=== PATIENT | male | born 1950 | race Caucasian/White ===

== ENCOUNTER → 2016-10-09 | Outpatient (CLI) | payer MEDICARE ==
[2016-10-09 14:22] LABS: ALBUMIN 3.5 GM/DL (3.2-5.2); ALBUMIN/GLOBULIN RATIO 1.03 (1.00-1.93); ALKALINE PHOSPHATASE 70 U/L (45-117); ALT/SGPT 18 U/L (12-78); ANION GAP 8 MEQ/L (8-16); AST/SGOT 11 U/L (15-37); BILIRUBIN,TOTAL 0.5 MG/DL (0.2-1.0); BLOOD UREA NITROGEN 18 MG/DL (7-18); CALCIUM LEVEL 8.5 MG/DL (8.8-10.2); CARBON DIOXIDE LEVEL 29 MEQ/L (21-32); CHLORIDE LEVEL 107 MEQ/L (98-107); CHOLESTEROL LEVEL 146 MG/DL (<200); GLOMERULAR FILTRATION RATE > 60.0 (>49); GLUCOSE, FASTING 165 MG/DL (80-110); POTASSIUM SERUM 4.3 MEQ/L (3.5-5.1); SODIUM LEVEL 144 MEQ/L (136-145); TOTAL PROTEIN 6.9 GM/DL (6.4-8.2); TRIGLYCERIDES LEVEL 109 MG/DL (<150)
== END ==
LOC: M LAB 13:14
PROVIDERS: ATTEND Physician Assistant Medical
DX: E11.21 Type 2 diabetes mellitus with diabetic nephropathy (principal); E03.9 Hypothyroidism, unspecified; D63.8 Anemia in other chronic diseases classified elsewhere

== ENCOUNTER → 2017-04-23 | Outpatient (CLI) | payer MEDICARE ==
[2017-04-23 12:30] LABS: CREATININE FOR GFR 1.43 MG/DL (0.70-1.30); GLOMERULAR FILTRATION RATE 52.8 (>49)
== END ==
LOC: M WUC 09:38
PROVIDERS: ATTEND Surgery Vascular Surgery
DX: R94.4 Abnormal results of kidney function studies (principal)

== ENCOUNTER 2017-08-07 12:50 | Inpatient (IN) | payer MEDICARE ==
[~2017-08-07] VITALS: Ht 157.5 cm; Wt 72.4 kg
[~2017-08-07 12:50] MED LIST: **UNRESOLVED NON-FORMULARY MED ORDER XX SCH
[2017-08-07] MEDS ORDERED: ACETAMINOPHEN TAB 650MG DOSE (2X325MG) PO PRN (13:15)
[2017-08-07 13:30] VITALS: BP 105/56
[2017-08-07] MEDS ORDERED: DEXTROSE 50% 50 ML SYRINGE IV PRN (14:00)
[2017-08-07] MEDS ORDERED: GLUCOSE 4 GM CHEW TABLET PO PRN (14:00)
[2017-08-07] MEDS ORDERED: GLUCAGON FOR INJ 1 MG VIAL (J1610) SC PRN (14:00)
[2017-08-07] MEDS ORDERED: NITROGLYCERIN 0.4 MG SUBL TABLET SL PRN (14:00)
[2017-08-07] MEDS ORDERED: MECLIZINE 25 MG TABLET PO PRN (14:00)
[2017-08-07] MEDS ORDERED: STAR120T3 PO (15:14)
[2017-08-07] MEDS ORDERED: METF10004 PO (15:14)
[2017-08-07] MEDS ORDERED: LISI-538 PO (15:14)
[2017-08-07] MEDS ORDERED: MECL-86 PO (15:14)
[2017-08-07] MEDS ORDERED: LOVE0.8I SC (15:14)
[2017-08-07] MEDS ORDERED: SYNT25TA PO (15:14)
[2017-08-07] MEDS ORDERED: FURO40TA2 PO (15:14)
[2017-08-07] MEDS ORDERED: SILV40CR EXT (15:14)
[2017-08-07] MEDS ORDERED: SPIR25TA2 PO (15:14)
[2017-08-07] MEDS ORDERED: GABA-282 PO (15:14)
[2017-08-07] MEDS ORDERED: CARV25TA PO (15:14)
[2017-08-07] MEDS ORDERED: INSULANT SC (15:14)
[2017-08-07] MEDS ORDERED: GLIP5TAB8 PO (15:14)
[2017-08-07] MEDS ORDERED: AMIT10TA PO (15:14)
[2017-08-07] MEDS ORDERED: ATOR40TA75 PO (15:14)
[2017-08-07] MEDS ORDERED: ISOS30TA4 PO (15:14)
[2017-08-07] MEDS ORDERED: ASPI325T PO (15:14)
[2017-08-07] MEDS ORDERED: ACET1TAB17 PO (15:14)
[2017-08-07] MEDS ORDERED: NITR4TASL SL (15:14)
[2017-08-07] MEDS ORDERED: NON-FORMULARY COMPOUNDED MEDICATION PO SCH (17:30)
[2017-08-07] MEDS: metFORMIN (GLUCOPHAGE) 1000 MG TABLET PO SCH (18:06)
[2017-08-07] MEDS: HumaLOG INSULIN (NovoLOG) PER UNIT SC SCH ×2 (18:06→21:00)
[2017-08-07 18:12] LABS: MEAN CORPUSCULAR HEMOGLOBIN 29.1 pg (27.0-33.0); MEAN CORPUSCULAR HGB CONC 32.4 g/dl (32.0-36.5); MEAN CORPUSCULAR VOLUME 89.8 fl (80.0-96.0); PLATELET COUNT, AUTOMATED 432 10^3/uL (150-450); RED CELL DISTRIBUTION WIDTH 15.9 % (11.5-14.5); WHITE BLOOD COUNT 10.7 10^3/uL (4.0-10.0)
[2017-08-07 18:31] LABS: INR 1.14
--- NOTE | 2017-08-07 18:49 | CR ---
DATE OF CONSULTATION: 08/07/2017 REQUESTING PHYSICIAN: Dr. Coates REASON FOR CONSULTATION: Medical evaluation. Marco Martin was transferred to [facility] after a recent hospitalization. He had developed acute arterial insufficiency of his left leg and was transferred from [facility] on 07/19/2017 to [facility]. He saw Dr. De Paz, who did a thrombectomy of the tibial, peroneal and popliteal arteries, fem-pop bypass graft, and did a tibioperoneal patch angioplasty. The following day he developed compartment syndrome in the left lower extremity. He underwent a fasciotomy on the left leg. He had a prolonged hospital course, which included developing seizure. 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 Treated with Zosyn and vancomycin. He had encephalopathy. Possible pneumonia. Echocardiogram was done, ejection fraction 60%. No vegetations seen (transthoracic echo). EEG was normal. Oral intake was poor. Nasogastric tube was passed leading to laryngospasm, respiratory arrest requiring intubation, mechanical ventilation and IV pressors. He ultimately was extubated on 07/25/2017. He had a swallowing evaluation with pureed solid diet. He was on insulin drip for a while. Speech evaluation on 08/01/2017 with a modified barium swallow showed impaired laryngeal phase, recommend honey-thickened diet. He had to be transferred back to the intensive care unit (ICU) after he became quite hyperglycemic and requiring an insulin drip. He had acute urinary retention. Webber catheter was placed. He was transfused 1 unit of packed red blood cells for what appears to be anemia secondary to chronic disease. Primary care provider is Hannah Fermin at the [facility]. PAST MEDICAL HISTORY: 1. Diabetes, which was under less than optimal control with hemoglobin A1/c of 8.6. 2. Hyperlipidemia. 3. Tobacco abuse. 4. Peripheral arterial disease. 5. Diabetic lower extremity neuropathy. 6. Hyperlipidemia. 7. Coronary artery disease. 8. History of myocardial infarction. 9. History of anemia of chronic disease. 10. Chronic kidney disease stage III with a GFR in the 50s. He has a hemoglobin A1/c as high as 13.27 June 2016, was down to 8.6 in September 2016. FAMILY HISTORY: Father at 72 of coronary artery disease. Mother is alive with hypertension and dementia. Siblings with hypertension, lymphoma, hyperlipidemia, hypertension, stroke, coronary artery disease. ALLERGIES: None known. SOCIAL HISTORY: He is single/. Former smoker, quit last year. No alcohol use. Retired. MEDICATIONS: - Tylenol - aspirin 325 mg daily - Lovenox 90 mg every 12 hours (weight based dose should be 70 mg every 12 hours). - Silvadene cream daily to his wounds - Gabapentin 300 mg at bedtime - Lisinopril 40 mg daily - amitriptyline 10 mg daily - atorvastatin 40 mg daily - carvedilol 25 mg twice a day - furosemide 40 mg daily - glipizide 5 mg daily - Lantus insulin 55 units nightly - Isosorbide mononitrate 30 mg daily - levothyroxine 25 mcg daily - meclizine 25 mg three times a day as needed for dizziness - metformin 1000 mg twice a day - NitroStat as needed - spironolactone 25 mg daily - Starlix 120 mg three times a day (He previously had been on clopidogrel, Pletal and probiotics, all of which have been discontinued). IMMUNIZATIONS: Received both Pneumovax, Prevnar 13 was in 07/2016. His Pneumo 23 was 01/2017. TDAP was 09/2016. Zostavax in 10/2016. IMPRESSION: 1. Type 2 diabetes. Concerns about developing hypoglycemia. Until we know what his oral intake will be, I have recommended reducing the dose of basal insulin to 4 units at bedtime. Continue metformin 1000 mg twice a day (lab work pending to reassess renal function). Stop Starlix and glipizide. Diet should be consistent carbohydrate. Fingersticks with coverage has been ordered in order to titrate the dose of the basal insulin. 2. Hyperlipidemia. Continue atorvastatin 40 mg daily. 3. Hypertension. Continue carvedilol 25 mg twice a day, Lisinopril 40 mg daily, furosemide 40 mg daily, spironolactone 25 mg daily. Check renal function. Check potassium off pending lab work. 4. Peripheral neuropathy. Continue gabapentin 300 mg at bedtime, amitriptyline 20 mg at night. 5. Peripheral arterial disease. Status post recent thrombectomy. He is on a supratherapeutic dose of Lovenox. Dose has been adjusted to 70 mg every 12 hours. Anticoagulant choice discussed with Dr. Coates. I have advised warfarin and we will continue the Lovenox until his INR is greater than 2.0, at which point Lovenox will be discontinued. Daily INR has been ordered. 6. Coronary artery disease. I would like to clarify the status of his coronary artery disease. Unfortunately, the version of [employer] installed on the computers in the rehabilitation unit is out of date and requires administrative credentials to update, therefore I cannot get to his office record. We will continue his isosorbide mononitrate, as well as his statin. 7. History of parietal stroke. Continue his aspirin 325 mg daily and he will be anticoagulated. Continue statin therapy.
[2017-08-07 18:51] LABS: ALBUMIN 2.7 GM/DL (3.2-5.2); ALBUMIN/GLOBULIN RATIO 0.71 (1.00-1.93); ALKALINE PHOSPHATASE 75 U/L (45-117); ALT/SGPT 43 U/L (12-78); ANION GAP 8 MEQ/L (8-16); AST/SGOT 25 U/L (7-37); BILIRUBIN,TOTAL 0.8 MG/DL (0.2-1.0); BLOOD UREA NITROGEN 24 MG/DL (7-18); CALCIUM LEVEL 8.5 MG/DL (8.8-10.2); CARBON DIOXIDE LEVEL 29 MEQ/L (21-32); CHLORIDE LEVEL 104 MEQ/L (98-107); FREE T4 1.12 NG/DL (0.76-1.46); GLOMERULAR FILTRATION RATE > 60.0 (>49); GLUCOSE, FASTING 141 MG/DL (80-110); POTASSIUM SERUM 4.2 MEQ/L (3.5-5.1); SODIUM LEVEL 141 MEQ/L (136-145); TOTAL PROTEIN 6.5 GM/DL (6.4-8.2)
[2017-08-07 20:30] VITALS: BP 133/66
--- NOTE | 2017-08-07 20:30 | PMRHPE ---
DATE OF ADMISSION: 08/07/2017 REASON FOR ADMISSION: Multiple source debilitation including left leg thrombosis of bypass graft with compartment syndrome status post fasciotomy and renewed bypass grafting, sepsis, congestive heart failure, pneumonia, and recent CVA with dysphagia. HISTORY OF PRESENT ILLNESS: The patient is a 67-year-old white male who developed pain and aching in his left lower extremity and was admitted to [facility] in [place] to the surgical service on 07/19/2017, and found to have developed a clot in the left leg and the bed was placed for ischemia. The patient required fasciotomies and renewed bypass of the leg which was done, but then developed congestive heart failure, edema, sepsis, and fever with confusion, and was felt to be encephalopathic. It is reported that imaging of the brain showed a nonacute but relatively recent CVA which led to his dysphagia and some disorientation and communication disorders. The patient also went into acute respiratory failure along with the congestive heart failure and fluid overload. The patient had difficulty with control of his diabetes mellitus. However, these have progressed and a patient who at one time was on Venturi mask at 15 liters/minute oxygen flow and has been being tapered down, was reported on 3 liters yesterday and reports on admission today that he was on 1 liter this morning and then discontinued from oxygen. Patient has been participating in physical and occupational therapy. His main deficit has been decreased ambulation due to severe heel pain when he tries to stand and walk on his left lower extremity. His prior severe fatigue due to pulmonary has been clearing and he has done well with diuresis. The patient has been participating in physical and occupational therapy and evaluated by speech for his dysphagia and having his diet advanced. Patient is felt to be able to participate in and benefit in acute intensive rehabilitation. PAST MEDICAL HISTORY: Includes: Atherosclerotic cardiovascular disease with left lower extremity bypass graft, congestive heart failure, hypertension, hyperlipidemia, coronary artery disease status post coronary angioplasty, chronic obstructive pulmonary disease (COPD) with chronic bronchitis, peripheral vascular disease, type 2 diabetes mellitus, and unspecified CVA with dysphagia. More recent problems include the respiratory failure, acute kidney disease, acute encephalopathy, hyperglycemia, hypoxic encephalopathy, and compartment syndrome of the left lower extremity. PAST SURGICAL HISTORY: Includes: Coronary angioplasty, left lower extremity bypass arterial grafts, fasciotomies left lower extremity, inguinal hernia repair, appendectomy, stent placement in left lower extremity. ALLERGIES: Patient with no known drug allergies. MEDICATIONS ON ADMISSION: - Tylenol 650 mg every 6 hours - amitriptyline 20 mg nightly - aspirin 325 mg daily - atorvastatin 40 mg nightly - Coreg 25 mg by mouth twice a day - Lovenox 90 mg subcutaneous twice a day to prevent thrombosis and clotting - Lasix 40 mg daily - gabapentin 300 mg nightly - glipizide 5 mg daily - long-acting insulin, in this case detemir 55 units subcutaneous nightly - Imdur 30 mg daily - Synthroid 25 mcg daily - lisinopril 40 mg daily - meclizine 25 mg by mouth twice a day as needed for dizziness - metformin 1 gram by mouth twice a day - Nitrostat 1/150 0.4 mg sublingual every 5 minutes as needed for chest pain - spironolactone 25 mg by mouth every morning Patient is on: - hypoglycemic agent of D5W 25 mL for hypoglycemia - glucagon 1 mg subcutaneous as needed hypoglycemia - glucose 16 grams by mouth as needed hypoglycemia - and the patient is also on Starlix 180 mg by mouth before meals three times a day, patient will use his own from home FAMILY HISTORY: Includes diabetes in both his parents, heart disease in his father, and alcohol use in a brother. SOCIAL HISTORY: Patient is a half a pack a day smoker prior to his recent admission and has a 22-1/2 pack year smoking history. No use of smokeless tobacco. No alcohol use. No illicit drug use. Patient lives in [place], [place] with his daughter who is very supportive. REVIEW OF SYSTEMS: Includes the symptoms noted above, but otherwise negative ten-point review. PHYSICAL EXAMINATION: The patient is a short, well nourished, well developed, late middle aged, white male, who looks slightly older than his stated age of 67, who is alert, and well oriented. VITAL SIGNS: Temperature is 98.4, blood pressure 105/56, pulse 74, respirations 18, pulse oximetry 96% on room air. Patient is 5 feet 2 inches, weighs in today at 73.1 kg. HEENT: Normocephalic, atraumatic with no facial asymmetry. Tongue is midline. No oropharynx lesions noted. Extraocular motions are intact. Pupils are equal, round, reactive to light and accommodation. Hearing is intact. NECK: Supple. Thyroid is midline, normal size and texture without any nodules or goiter found. No carotid bruits were auscultated in the neck. LUNGS: Clear in all fraser to auscultation. CORONARY: Shows regular rate and rhythm with normal S1 and S2, without S3 or S4 murmurs or rubs. ABDOMEN: Benign with no palpable tenderness, masses, and normal bowel sounds in all quadrants. EXTREMITIES: With good functional range of motion in bilateral upper and lower extremities, however on the left lower extremity there is a healing medial bypass graft site that has significant eschar over it with no drainage, but a little localized erythema at the margin, no odor is seen, and this extends approximately 20 cm in length up to 1 cm in width and 1 cm in depth. There is along the medial aspect, posterior to the medial malleolus is the stapled graft, which we have removed the guy of, that is approximately 10 cm in length and is healed across, and then directly posterior and slightly superior to it is a 2-1/2 cm circular, what appears to be stage IV decubitus, with notable eschar over the top of the proximal Achilles tendon with mild tenderness in the surrounding areas, no drainage, erythema, or odor is found there. In the lateral aspect of the left leg, there are three fasciotomy incisions that are approximately 3 cm in length each and 1 cm wide in an elliptical shape with no drainage and early granular base. There is no palpable tenderness to the foot or ankle, though some tenderness when the foot is pressed towards dorsiflexion. This is along the Achilles tendon into the calcaneal insertion of the Achilles. No other lesions were found on skin of the upper or right lower extremity. NEUROLOGIC: Patient is alert and oriented times four. Speech is clear, coherent, and appropriate. Affect is pleasant and cooperative. Memory appears to be good as opposed to earlier reports from [facility]. Sensorium shows patient with a left common peroneal neuropathy, possibly secondary to compression at the fibular neck region where there is one of the three fasciotomies. Otherwise, light touch is intact in bilateral lower extremities. There is no stocking pattern present and light touch is intact in bilateral upper extremities. Tone is within normal limits in bilateral upper and lower extremities. Motor is intact in bilateral upper and right lower extremity, left hip, with some guarding of the left knee and ankle. Most recent accompanying labs show the patient is not currently in any renal failure, but does have some anemia present. ASSESSMENT/PLAN: 1. Rehabilitation and multiple debilitation. It is important to get patient up and walking and able to ambulate and perform basic activities of daily living, a few stairs, and good distance of ambulation to be able to return to living at home with his daughter, where he will need to be probably stand-by assistance to modified independent. Therefore, I will go ahead and start patient on a program of physical and occupational therapy. We will continue to watch and monitor blood pressure, heart rate, and oxygen, but at this time patient has apparently cleared his acute respiratory failure as he is 96% saturated on room air without tachypnea. 2. Recent CVA with dysphagia. I will go ahead and consult speech language pathology to continue to evaluate this patient. Currently he is on a mechanical soft diet that is moist with honey thickened liquids and will require his oral medication in a soft medium such as applesauce and these arrangements have been made. The patient will probably require modified barium swallow to further test and advance diet. 3. Left peroneal palsy. It is unclear at this time whether patient has a neurapraxia versus axonotmesis, whether this was simply due to ischemia caused by his compartment syndrome as opposed to possibly a nicked nerve in the course of the fasciotomy. Depending on how patient is proceeding with healing and whether it causes any significant foot drop, consideration can be made towards electrodiagnostic evaluation. For right now, to treat this and the stage IV apparent decubitus over the Achilles tendon, I will be getting patient into a wedge shoe and coordinating that with Mr. Perez at [facility]. 4. Diabetes mellitus. This appears to be coming under control. Consultation has been sent to patient's primary care group, the [facility], and Dr. Agee has been notified and will be seeing the patient. Further adjustment in medication for this as well as his cardiovascular problems will be coordinated with [facility]. 5. Atherosclerotic cardiovascular disease including coronary artery disease with potential for angina. Patient will continue on his Imdur with Nitrostat backup, along with hypertensive management. Patient will continue, due to the clotting problems, on his high dose Lovenox at 90 mg every 12 hours. He will continue also with his atorvastatin for lipids, Coreg for hypertension, aspirin for clot prevention, lisinopril for hypertension, and Lasix for fluid control. POSTADMISSION PHYSICIAN EVALUATION: The patient does appear to physically be doing much better than the recent reports from [facility], however until the medical record packet arrived today, some information was not present in our review and we will work to try to correct that in the future. Patient is not showing any signs of encephalopathy and he is tolerating room air without oxygen supplementation well at this time. I see him as highly motivated and able to participate in and benefit from 3 hours of physical, occupational, and speech therapy per day, and I feel he has a fair to good prognosis for returning home with his daughter. My estimated length of stay is 14 days. Time spent on chart review, history and physical (H and P), and documentation was greater than 70 minutes.
[2017-08-07] MEDS ORDERED: LEVEMIR (INSULIN DETEMIR) 1 UNITS/0.01ML SC SCH (21:00)
[2017-08-07] MEDS ORDERED: ENOXAPARIN 30 MG/0.3 ML SYR (J1650) SC SCH (21:00)
[2017-08-07] MEDS: GABAPENTIN 300 MG CAP PO SCH (21:44)
[2017-08-07] MEDS: WARFARIN SOD 5 MG TAB PO SCH (21:45)
[2017-08-07] MEDS: ATORVASTATIN 20 MG TAB PO SCH (21:45)
[2017-08-07] MEDS: ENOXAPARIN 80 MG/0.8 ML SYRINGE (J1650) SC SCH (21:46)
[2017-08-07] MEDS: AMITRIPTYLINE 10 MG TAB PO SCH (21:46)
[2017-08-07] MEDS: CARVedilol 12.5 MG TAB PO SCH (21:47)
[2017-08-07] MEDS: LEVEMIR (INSULIN DETEMIR) 1 UNITS/0.01ML SC SCH (21:51)
[2017-08-07] MEDS ORDERED: SODIUM CHLORIDE 0.9% INJ 10 ML SYR IV PRN (22:30)
[2017-08-08] MEDS: LEVOTHYROXINE 25MCG TABLET (0.025MG) PO SCH (05:12)
[2017-08-08 05:54] VITALS: BP 140/68
[2017-08-08] MEDS: SODIUM CHLORIDE 0.9% INJ 10 ML SYR IV SCH ×2 (06:21→18:20)
[2017-08-08 07:02] LABS: BASO # 0.1 10^3/uL (0.0-0.2); BASO % 0.6 % (0.0-1.0); EOS # 0.2 10^3/uL (0.0-0.50); EOS % 2.2 % (0.0-3.0); IMMATURE GRANULOCYTE % 1.2 % (0-0); LYMPH # 2.4 10^3/uL (1.5-4.5); MEAN CORPUSCULAR HEMOGLOBIN 29.2 pg (27.0-33.0); MEAN CORPUSCULAR HGB CONC 31.8 g/dl (32.0-36.5); MEAN CORPUSCULAR VOLUME 91.6 fl (80.0-96.0); MONO # 0.8 10^3/uL (0.0-0.8); MONO % 7.6 % (0.0-5.0); NEUTROPHILS # 6.4 10^3/uL (1.8-7.7); NEUTROPHILS % 64.4 % (36.0-66.0); PLATELET COUNT, AUTOMATED 393 10^3/uL (150-450); WHITE BLOOD COUNT 9.9 10^3/uL (4.0-10.0)
[2017-08-08 07:23] LABS: INR 1.17
[2017-08-08 07:30] LABS: ALBUMIN 2.6 GM/DL (3.2-5.2); ALBUMIN/GLOBULIN RATIO 0.74 (1.00-1.93); ALKALINE PHOSPHATASE 76 U/L (45-117); ALT/SGPT 38 U/L (12-78); ANION GAP 6 MEQ/L (8-16); AST/SGOT 22 U/L (7-37); BILIRUBIN,TOTAL 0.6 MG/DL (0.2-1.0); BLOOD UREA NITROGEN 26 MG/DL (7-18); CALCIUM LEVEL 8.5 MG/DL (8.8-10.2); CARBON DIOXIDE LEVEL 31 MEQ/L (21-32); CHLORIDE LEVEL 104 MEQ/L (98-107); CREATININE FOR GFR 0.97 MG/DL (0.70-1.30); GLOMERULAR FILTRATION RATE > 60.0 (>49); GLUCOSE, FASTING 98 MG/DL (80-110); POTASSIUM SERUM 4.4 MEQ/L (3.5-5.1); SODIUM LEVEL 141 MEQ/L (136-145); TOTAL PROTEIN 6.1 GM/DL (6.4-8.2)
[2017-08-08] MEDS ORDERED: glipiZIDE (GLUCOTROL) 5 MG TAB PO SCH (07:30)
[2017-08-08] MEDS: HumaLOG INSULIN (NovoLOG) PER UNIT SC SCH ×4 (07:30→20:41)
[2017-08-08] MEDS: ASPIRIN 325 MG TAB PO SCH (08:12)
[2017-08-08] MEDS: ENOXAPARIN 80 MG/0.8 ML SYRINGE (J1650) SC SCH ×2 (08:12→20:40)
[2017-08-08] MEDS: LISINOPRIL 40 MG TAB PO SCH (08:13)
[2017-08-08] MEDS: CARVedilol 12.5 MG TAB PO SCH ×2 (08:13→20:41)
[2017-08-08] MEDS: metFORMIN (GLUCOPHAGE) 1000 MG TABLET PO SCH ×2 (08:14→18:19)
[2017-08-08] MEDS: ISOSORBIDE MON. (IMDUR) 30 MG XR TAB PO SCH (08:14)
[2017-08-08] MEDS: SPIRONOLACTONE 25 MG TAB PO SCH (08:14)
[2017-08-08] MEDS: FUROSEMIDE 40 MG TAB PO SCH (08:14)
--- NOTE | 2017-08-08 08:42 | IPNPDOC ---
Subjective Date Seen The patient was seen on 08/08/17. Subjective Chief Complaint/HPI The patient is a 67-year-old male admitted with a reason for visit of Debility S /P Revision Of Femoropopliteal Bypass. Events since last encounter Ambulating with walker with PT this morning. Denies SOB or CP. Feels well. No complaints Constitutional: Denies: Chills, Fever Pulmonary: Denies: Dyspnea, Cough Cardiovascular: Denies: Chest Pain, Palpitations, Orthopnea Gastrointestinal: Denies: Nausea, Vomiting, Abdominal Pain, Diarrhea, Constipation Objective Physical Examination General Exam: Positive: Alert, No Acute Distress Chest Exam: Positive: Clear to auscultation, Normal air movement Heart Exam: Positive: Rate Normal, Regular Rhythm, Negative: Murmurs Abdomen Exam: Positive: Normal bowel sounds, Soft, Negative: Tenderness Extremity Exam: Positive: Edema (LLE 2+ edema. Bandages C/D/I Right Le no edema) Assessment /Plan Problems (1) PAD (peripheral artery disease) Status: Chronic Response to Treatment: Stable Problem Text: H/O a. insuff Left leg s/p thrombectomy and fem-pop bypass recently with subsequent compartment syndrome requiring fasciotomy Currently with LLE edema and healing wounds Lovenox restarted until Coumadin therapeutic Cont. Lasix and Aldactone for edema (2) S/P bypass graft of extremity (3) Diabetes type 2, uncontrolled Status: Chronic Problem Text: Cont Levemir, SSRI and Metformin Starlix and Sulfonylurea held to prevent hypoglycemia (4) ASCVD (arteriosclerotic cardiovascular disease) Status: Chronic Response to Treatment: Stable (5) Status post CVA Status: Chronic Response to Treatment: Stable Problem Text: Continue full dose ASA 325 mg daily (6) HTN (hypertension) Status: Chronic Response to Treatment: Stable Plan/VTE VTE Prophylaxis Ordered?: Yes (Lovenox until COumadin therapeutic) VS, I&O, 24H, Fishbone Vital Signs/I&O Vital Signs Date Time Temp Pulse Resp B/P (MAP) Pulse Ox O2 Delivery O2 Flow Rate FiO2 08/08/17 08:13 73 140/68 08/08/17 05:54 98.4 18 93 Room Air Laboratory Data 24H LABS Laboratory Tests 2 08/07/17 17:35: Bedside Glucose (Misc Panel) 152H 08/07/17 17:56: Nucleated Red Blood Cells % (auto) 0.0, Prothrombin Time 14.8H, Prothromb Time International Ratio 1.14, Activated Partial Thromboplast Time 37.7, Anion Gap 8 , Glomerular Filtration Rate > 60.0, Estimated Mean Plasma Glucose 183H, Hemoglobin A1c 8.0, Blood Urea Nitrogen 24H, Creatinine 0.90, Sodium Level 141, Potassium Level 4.2, Chloride Level 104, Carbon Dioxide Level 29, Calcium Level 8.5L, Aspartate Amino Transf (AST/SGOT) 25, Alanine Aminotransferase (ALT/SGPT) 43, Alkaline Phosphatase 75, Total Bilirubin 0.8, Total Protein 6.5, Albumin 2.7L, Albumin/Globulin Ratio 0.71L, Thyroid Stimulating Hormone (TSH) 0.312L, Free Thyroxine 1.12 08/07/17 21:27: Bedside Glucose (Misc Panel) 173H 08/08/17 06:19: Nucleated Red Blood Cells % (auto) 0.0, Prothrombin Time 15.1H, Prothromb Time International Ratio 1.17, Anion Gap 6L, Glomerular Filtration Rate > 60.0, Blood Urea Nitrogen 26H, Creatinine 0.97, Sodium Level 141, Potassium Level 4.4 , Chloride Level 104, Carbon Dioxide Level 31, Calcium Level 8.5L, Aspartate Amino Transf (AST/SGOT) 22, Alanine Aminotransferase (ALT/SGPT) 38, Alkaline Phosphatase 76, Total Bilirubin 0.6, Total Protein 6.1L, Albumin 2.6L, Albumin/ Globulin Ratio 0.74L, Immature Granulocyte % (Auto) 1.2H, White Blood Count 9.9 , Red Blood Count 3.67L, Hemoglobin 10.7L, Hematocrit 33.6L, Mean Corpuscular Volume 91.6, Mean Corpuscular Hemoglobin 29.2, Mean Corpuscular Hemoglobin Concent 31.8L, Red Cell Distribution Width 16.0H, Platelet Count 393, Neutrophils (%) (Auto) 64.4, Lymphocytes (%) (Auto) 24.0, Monocytes (%) (Auto) 7.6H, Eosinophils (%) (Auto) 2.2, Basophils (%) (Auto) 0.6, Neutrophils # (Auto ) 6.4, Lymphocytes # (Auto) 2.4, Monocytes # (Auto) 0.8, Eosinophils # (Auto) 0.2, Basophils # (Auto) 0.1, Immature Granulocyte # (Auto) 0.1H CBC/BMP Laboratory Tests 08/07/17 17:56 Red Blood Count 3.71 L, Mean Corpuscular Volume 89.8, Mean Corpuscular Hemoglobin 29.1, Mean Corpuscular Hemoglobin Concent 32.4, Red Cell Distribution Width 15.9 H, Calcium Level 8.5 L, Aspartate Amino Transf (AST/SGOT ) 25, Alanine Aminotransferase (ALT/SGPT) 43, Alkaline Phosphatase 75, Total Bilirubin 0.8, Total Protein 6.5, Albumin 2.7 L 08/08/17 06:19 Red Blood Count 3.67 L, Mean Corpuscular Volume 91.6, Mean Corpuscular Hemoglobin 29.2, Mean Corpuscular Hemoglobin Concent 31.8 L, Red Cell Distribution Width 16.0 H, Calcium Level 8.5 L, Aspartate Amino Transf (AST/SGOT ) 22, Alanine Aminotransferase (ALT/SGPT) 38, Alkaline Phosphatase 76, Total Bilirubin 0.6, Total Protein 6.1 L, Albumin 2.6 L, Neutrophils (%) (Auto) 64.4, Lymphocytes (%) (Auto) 24.0, Monocytes (%) (Auto) 7.6 H, Eosinophils (%) (Auto) 2.2, Basophils (%) (Auto) 0.6, Neutrophils # (Auto) 6.4, Lymphocytes # (Auto) 2.4, Monocytes # (Auto) 0.8, Eosinophils # (Auto) 0.2, Basophils # (Auto) 0.1 JOHANNA GARCIA PA-C Aug 08, 2017 08:42
[2017-08-08 14:00] VITALS: BP 102/57
--- NOTE | 2017-08-08 18:13 | IPNPDOC ---
PM&R Progress Note Internal Controls Consultant Progress Note DATE OF SERVICE: 08/08/17 DATE OF ADMISSION: Aug 07, 2017 at 12:57 INPATIENT REHABILITATION ADMISSION DAY: #2 SUBJECTIVE: The patient is a 67-year-old white male who developed pain and aching in his left lower extremity and was admitted to [facility] in [place] to the surgical service on 07/19/2017, and found to have developed a clot in the left leg and the bed was placed for ischemia. The patient required fasciotomies and renewed bypass of the leg which was done, but then developed congestive heart failure, edema, sepsis, and fever with confusion, and was felt to be encephalopathic. It is reported that imaging of the brain showed a nonacute but relatively recent CVA which led to his dysphagia and some disorientation and communication disorders. The patient also went into acute respiratory failure along with the congestive heart failure and fluid overload. The patient had difficulty with control of his diabetes mellitus. Overall patient is doing much better with less pain and no significant dyspnea. He did have some the distance of the medial left ankle incision during gaiting today. Patient to get white shoe or wedge shoe insert to control pain and stress and the leg this evening. ALLERGIES: See Below MEDICATIONS: Reviewed, see below. OBJECTIVE: VITAL SIGNS: Please see below. PHYSICAL EXAMINATION: GENERAL: Short well-nourished well-developed late middle-age white male in mild musculoskeletal distress. HEENT: Normocephalic/atraumatic. CARDIOVASCULAR: Regular rate and rhythm with normal S1 and S2. 2/4 bilateral radial pulses. LUNGS: Koroma clear to auscultation. ABDOMEN: Soft, benign with normal bowel sounds in all quadrants. NEUROLOGICAL: Alert and well oriented, speech clear coherent and appropriate, affect pleasant and cooperative. Good minus to good strength in bilateral upper and lower extremities. SKIN: Patient multiple left lower extremity wounds incision responding to the AG optifoam with breakdown of some of the eschar. The inferior lateral fasciotomy site where patient has some swelling and a bit more edema mild/ erythema and the other sites is now showing some serous drainage with no odor present. The medial superior leg bypass graft site is showing breakdown of the eschar but no signs of infection. 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 The distal graft site which had been stapled for approximately 20 days the chest and drained some sick dark red sanguinous drainage with no purulence, inflammation, odor or pain. This was Steri-Stripped to a closer approximation. An AG Optifoam was reapplied to this site and the Achilles decubitus. Bilateral lower extremities being elevated when patient is in bed to help reduce edema. LABORATORY DATA: Reviewed. Please see below. MICROBIOLOGY: Please see below. IMAGING: No new imaging. DVT prophylaxis ordered?: Aspirin, Lovenox 70 mg twice a day, Coumadin 5 mg. INR subtherapeutic. ASSESSMENT AND PLAN: 1. Rehabilitation of multiple debilitation: Patient is showing good progress from his acute respiratory failure and congestive heart failure, though tendency when up and active to cannulate fluid in the lower extremity and stretch the incision sites from the fasciotomies and bypass grafts of the left lower extremity continue. Patient however is very motivated and participating well in physical and occupational therapies. Please see attached evaluations below. 2. Recent CVA with dysphasia: Patient started with speech assessment today please see attached evaluation below. 3. Left lower extremity multiple wounds: At this time there does not appear to be any active infection, but the medial ankle I passed grafts incision site appears to had tenuous healing as the guy were removed after 20 days and the wound dehisced with limited ambulation today and did not show any skin to subcutaneous adherence but rather what appears to be a seroma/hematoma. The wound beds overall though appeared to be starting to granulate and slough eschar. We will continue to follow these. If the wound that the his appears to have an compromise I will consult Dr. Boyce and podiatry. At this point my biggest concern though is a potential for interconnections between the achilles tendon decubitus and this graft site. 4. DVT prophylaxis: Patient currently transitioning to Coumadin from high-dose Lovenox. TIME SPENT: Chart Review, examination and documentation require greater than 25 minutes. Patient: Marco Martin : 1950 Age/Sex: 67/M Unit#: [id number] Room/Bed: M4148/01 User: Minnie Amor OT [facility] OT Date: 08/08/17 11:15 Type: OT Evaluation Time In * 09:35 Time Out * 10:35 OT Treatment Time-Minutes * 60 mins Type of Therapy Provided * Individual Unit * Acute Inpatient Rehab Occupational Therapy Evaluation * Initial Diagnosis * Debility S/P Revision Of Femoro-popliteal Bypass Doctor's Order * Evaluation & Treatment Doctor's Order Details * eval and treat 1.5 hours/day at least 5 days/week History of Present Illness * [facility] charted and reviewed. Pt with complicated hospital course, previously hospitalized at [facility] in [place] and arrived to [facility] for acute rehab 08/07/17. Precautions * Fall * WBAT * Aspiration Other Precautions * nectar thick liquids Subjective * Pt received for session seated in bedside chair resting comfortably, pleasant and agreeable to OT evaluation. Prior to admission Pt was Independent ADL's * Yes Prior to Admission Other Assist Pt Required * Pt was independent with all ADLs and home management tasks. Pain: Start of Session * 0 Pain Assessment Label * none * Pain Note Pt with no c/o pain pre/during/post eval. Upper Extremity Dominance * Right Range of Motion Assessment Label * Bilateral Shoulder Elbow Wrist Fingers * Active or Passive Active * ROM Within Normal Limits Within Functional Limits Strength Assessment Label * Bilateral * Upper Extremity Strength Location Shoulder Elbow Wrist Drafter Tool Design * Upper Extremity Status Strength 4+/5 Movement Assessment Label * Bilateral * Upper Extremity Status Gross Motor Within Functional Limits Upper Body Muscle Tone Label * Bilateral * Upper Extremity Status Fine Motor Within Functional Limits Sensation Assessment Label * Bilateral * Upper Extremity Status Sensation Within Normal Limits * Other-Upper Extremity Status Sensation grossly intact Grooming (Hygiene) * Standby Assist Bathing * Contact Guard Assist Dressing-Upper Body * Standby Assist Dressing-Lower Body * Minimum Assist Transfers * Contact Guard Assist ADL Status Note * Pt ambulated bedside<>bathroom with SW and CGA for safety, occasionally forgetful of safe hand placement but self corrects without cuing. Pt participated with bath in sitting on bench at sink using CHG wipes per protocol with CGA for standing portion only with SW for support to wash buttocks. Pt donned pull-over shirt with s/u. Pt doffed yadiel socks independently but required assist to don clean on sock on L foot due to LLE weakness. Pt donned underwear and pants with CGA for standing portion only to don to waist. Pt donned shoes with assistance to adjust L shoe and to tie yadiel shoes. Pt washed face at sink in standing with SBA. A. Eating (include only those with PO intake): * 05.Setup/clean up Asst B. Oral Hygiene (includes gums in edentulous pts): * 88.Not Attempted Oral Hygiene Comments: * Pt does not have teeth but does use dentures, declined to insert dentures at this time. C. Toileting Hygiene (not transfers): * 88.Not Attempted Toileting Hygiene Comments: * No opportunity to observe this session. E. Shower/Bathe Self (not transfers, can be sponge bath): * 04.Sup/Touch Assist Shower/Bathe Self Comments: * See ADL note. F. Upper Body Dressing (includes bra, not hospital gown): * 05.Setup/clean up Asst Upper Body Dressing Comments: * See ADL note. G. Lower Body Dressing (includes briefs and knee braces): * 04.Sup/Touch Assist Lower Body Dressing Comments: * See ADL note. H. Putting on/taking off footwear (includes TEDS and AFO): * 03.Partial/Mod Assist Sitting: Static * G Sitting: Dynamic * F+ Standing: Static * F+ Standing: Dynamic * F+ Functional Endurance * Good Living Quarters * House Number of Steps Inside Home * 0 Number of Steps Outside Home * 1 Home Has * Shower * Grab Bars * Cane Home Needs * Walker * Shower Chair Living Situation * Family Other Home Accessibility Comments * Pt previously lived with his brother and niece but will be moving in with his daughter. Details regarding home environment pertain to daughter's house. Praxis * Intact Orientation * Impaired Memory * Impaired Attention * Intact Follows Commands * Intact Safety Awareness * Intact Behavior/Affect * Intact Motivation * Intact Perception/Cognition/Psychosocial Comment * Mild short term memory impairment noted per BIMS assessment. Pt alert and oriented to self, place, date and year but stated month was "April". Home Safety Status * Not Safe Patient Not Safe for Discharge Due to * Pt functioning below baseline for ADLs. Discharge Recommendations * Home w/services Occupational Therapy Evaluation Notes * Pt presents with decreased independence with ADLs due to weakness and deconditioning related to recent femoro-popliteal bypass surgery and subsequent medical complications. Pt would benefit from restorative OT services to facilitate safe return to PLOF. OT Recommendations * oob for meals, ambulate to bathroom with SW and assist x 1, encourage participation with self care See Acute In-Patient Rehab POC * Yes Skilled OT appropriate for how many times per week * 5 times per week Number of weeks to achieve goals * 4 PT Goal Expiration Date * Sep 05, 2017 OT Interventions * Functional Training * Safety/Precautions * D/C Needs * HEP * ADL Training * Bed Mobility * Therapeutic Exercise * Balance Activities * Pt/Family Education Other OT Interventions * Pt also participated with core therex in mult planes using 4# to increase strength for improved standing bal and reduced fall risk during performance of LB ADLs. Pt left seated in bedside chair at end of session with call uribe in reach and all needs met. Patient Education Completed * Yes Patient: Marco Martin : 1950 Age/Sex: 67/M Unit#: [id number] Room/Bed: M4148/01 User: Emily Santana PT PT Date: 08/08/17 17:05 Type: PT Evaluation Time In * 08:05 Time Out * 09:05 PT Treatment Time-Minutes * 60 mins Physical Therapy Evaluation * Initial Type of Therapy Provided * Individual Diagnosis * debility, s/p revision of femoropoliteal bypass Doctor's Order * Evaluation & Treatment Doctor's Order Detail * eval and tx 1.5 hours per day 5 days a week History of Present Illness * 67 yo male with multiple source debilitation including left leg thrombosis of bypass graft with compartment syndrome status post fasciotomy and renewed bypass grafting, sepsis, congestive heart failure, pneumonia, and recent CVA with dysphagia. Subjective * Pt is a pleasent 67yo male who appears motivated and willing to participate in therapy at this time. He states he went to [facility] with significant pain in his leg at which time he was sent [place]. He states he was there for several weeks prior to coming to [facility] for Rehab. Precautions * Fall * WBAT * Aspiration Other Precautions * honey thick Unit * Acute Inpatient Rehab Prior to Admission Patient Lives * With Family Prior to Admission Pt Lives with Comment * daughter, , their children, and a dog Prior to Admission Assistive Devices * Cane Prior to Admission Pt Requires Assist with * Meals * Cleaning Prior to Admission Other Assist Pt Requires * pt states that prior to leg pain he was completing above without assistance. Pain Comment * No c/o pain this session. Pain Assessment Label * none * Pain Note Pt with no c/o pain pre/during/post eval. Upper Extremity ROM Label * Bilateral * ROM Within Normal Limits Within Normal Limits * Upper Extremity ROM Comment See Ot eval Lower Extremity ROM Label * Bilateral Hip Ankle * Active or Passive Active * ROM Within Normal Limits Within Functional Limits * Lower Extremity ROM Comment he does note some tightness in effected LE Tone Within Normal Limits * Yes Upper Extremity Strength Label * Bilateral * Upper Extremity Status Strength Within Funct. Limits * Upper Extremity Strength Comment See OT eval Lower Extremity Strength Label * Bilateral Hip Knee Ankle * Lower Extremity Status Strength Within Functional Limits Dressing * Minimum Assist Dressing Comment * to tie each shoe able to don without assistance. Transfer: Supine to Sit * Standby Assist * Hospital Bed Assist * Bedrail Used Transfer: Sit to Supine * Not Tested Transfer: Rolling * Standby Assist Transfer: Sit to Stand * Contact Guard Assist Transfer: Stand to Sit * Contact Guard Assist Transfer: Bed to Chair * Not Tested Transfer: Chair to Bed * Not Tested Transfer: Toilet/Commode * Not Tested Transfer Comment * bed mobility completed with SBA, sit to stand with CGA for safety. Ambulation Distance * 120 Feet Ambulation Level of Assist * Contact Guard Assist Assistive Device Used * Standard Walker * Gait Belt Gait Deviations * pt states he has a standard walker at home. He did not use it regularely and did need VCs for proper distance. Pt was then able to complete distance x 2 after seated rest break. CGA for safety at this time and occasional sway due to walker placement. Wheelchair Mobility Level of Assist * Not Tested Stair Skills Required * Yes Level of Assist for Stairs * Not Tested Stairs Comment * not tested this sesssion, waiting for heal wedge. A. Roll Left and Right: * 05.Setup/clean up Asst B. Sit to Lying: * 88.Not Attempted C. Lying to Sitting on Side of Bed: * 05.Setup/clean up Asst D. Sit to Stand: * 04.Sup/Touch Assist E. Chair/[id number] Transfer: * 04.Sup/Touch Assist F. Toilet Transfer: * 88.Not Attempted G. Car Transfer: * 88.Not Attempted H. Does the patient walk?: * 2. Yes I. Walk 10 Feet: * 04.Sup/Touch Assist J. Walk 50' with Two Turns: * 04.Sup/Touch Assist K. Walk 150 Feet: * 88.Not Attempted L. Walking 10' on uneven surfaces: * 88.Not Attempted M. 1 Step (curb): * 88.Not Attempted N. 4 Steps (with or without railing): * 88.Not Attempted O. 12 Steps (with or without railing): * 09.Not Applicable 12 Steps (with or without railing) Comments: * pt states there is a full flight of stairs present at the home however his bathroom and bedroom are on the first floor. He states he does not have to use the second floor of the home. P. Picking up Object from the Floor (from a standing): * 88.Not Attempted Q. Does the patient use a w/c (other than just transport): * 0. No Sitting: Static * G Sitting: Dynamic * G Standing: Static * G- Standing: Dynamic * F+ Functional Balance Comment * sitting observed EOB and standing with RW Living Quarters * House Number of Steps Inside Home * 1 Equipment at Home * Walker * Shower Chair * Commode * Cane Hearing * Intact Orientation * Person * Place * Date Memory * Intact Follows Commands * Intact Safety Awareness * Intact Family Support * Intact Family Needs Identified * Education Coordination * Within Normal Limits Home Safety Status * Not Safe Patient Not Safe for Discharge Due to * Pt noted to have decreased baseline function at this time needing Skilled PT to increase functional mobility prior to return home. Discharge Recommendations * Home w/services Physical Therapy Evaluation Note * Pt would benefit from Skilled PT to increase ambulation, coordination, endurance, balance, and stair training. Pt was left seated in his recliner chair with his call uribe and personal items within reach. Nursing was notified. Pt was education on program and POC. He was also educated not to get up without assistance. Nursing notified. PT Recommendations * OOB for all meals. Ambulation into bathroom during day and at night as apporpiatel See Acute In-Patient Rehab POC * Yes PT Interventions * Gait Training * Functional Training * Bed Mobility * Balance Activities * Safety/Precautions * Pt./Family Education * D/C Needs Patient Education Completed * Yes Patient: Marco Martin : 1950 Age/Sex: 67/M Unit#: [id number] Room/Bed: M4148/01 User: [facility] Romo SP Date: 08/08/17 15:28 Type: ST: Adult Language Evaluation Reason for Referral * Recent CVA Location of Evaluation * PM&R unit Evaluation Components * Test Record Scanned EMR Evaluation Components Comment * [facility] Speech/Language Assessment Guide Patient Characteristics * Cooperative * Alert * Oriented Visual Acuity * Glasses Hearing * Functional Voice * Functional Hand Dominance * Right Fluency * Adequate Listening Comprehension * Follows Complex Commands * Follows Conservation * Accurately Yes/No Ques * Consistently Verbal Expression * Within Normal Limits Reading Comprehension * Paragraphs * At Baseline Reading Comprehension Comment * Slow decoding, limited recall of details. Pt reports he doesn't read @ home Written Expression * Words * Decreased Legiblity Written Expression Comment * Family reports writing is smaller than pt's baseline Social Language Skills * Adequate Listening Deficit * Within Functional Limits Speaking Deficit * Within Functional Limits Reading Deficit Comment * Suspect pt is at baseline Written Expression * Mild Deficit Recommendations * Sp/Lang Tx/Writing Skill Recommendations Comment * To improve legibility After Evaluation Verbal Report Provided to * Dr. Jones and [facility] team Problem List * Supervising DATA ANALYSIS INTERN present, agrees w/ tx and outcomes. MS Brandy, [facility]-DATA ANALYSIS INTERN. Patient: Marco Martin : 1950 Age/Sex: 67/M Unit#: [id number] [facility] User: [facility] Favio Romo SP Date: 08/08/17 15:51 Type: ST: Clinical Swallowing Evalua... History * CVA/TIA * Dysphagia Previous Dysphagia Treatment * Aug 01, 2017 Previous Dysphagia Treatment Comment * MBSS this date showed reduced lingual strength, dec. epiglottic inversion, and dec. laryngeal elevation. Residue in valleculae. Aspiration on thin and nectar thick liquids. Recommended Level 2 mechanically altered diet with honey thick liquids. Recommended speech therapy and repeat MBSS in 4-6 weeks. Verbal expression * Adequate Able to follow commands * Adequate Cognition * Functional Diabetic * Yes Positioning * Standard Chair/Unsupport Nutrition/Intake method * Total Oral Current diet * Honey thick fluid Current Nutritional Support Comment * Current Diet: Level 2 mechanically altered Oral Structures * Upper Dentures * Lower Dentures Speech Clarity * WFL Problem List * No PO trials attempted. After review of prior MBSS, recommend remain at current diet level and continue speech therapy exercises until repeat MBSS. Recommended Liquids * Honey Thick Liquid Recommended positioning * Upright Recommended Oral Care * Three Times per Day Recommended compensatory strategies * Alternate Liq w/Solids Compensatory Strategies Comment * Slow rate, Small bites/sips Recommend Dysphagia Therapy * Yes Other Recommendations * Recommended Diet: Level 2 Mechanically Altered Supervising DATA ANALYSIS INTERN present throughout evaluation, agrees w/ dx and recommendations. Milena Schneider MS, CCC-DATA ANALYSIS INTERN. After Evaluation/Treatment Report Provided to: * Dr. Jones and [facility] team Patient: Marco Martin : 1950 Age/Sex: 67/M Unit#: [id number] Room/Bed: [place] [address] User: [address] Demetrius Rn Transitional SP Date: 08/08/17 15:18 Type: ST: Cognitive Linguistic Eval Reason for Referal * Recent CVA Location of Evaluation * PM&R Unit Cognitive Communication Evaluation Components * CLQT * Assessment Scanned EMR Language Testing Completed * Yes - [facility] Speech/Language Assessment Guide Oral Motor/Speech Skills WFL * Yes Hearing WFL * Yes Clinical Observations * Decreased Attention * Oriented * Alert * Cooperative * Socially Appropriate Patient Orientation * Name * Age * Birthday Pragmatics * WFL Memory * Dec. Immediate Memory * Dec. Paragraph Cognitive-Communication Memory Comment * Episodic WFL as pt is able to tell me events prior to arrival at [facility] Organization * Dec. [employer]. * Dec. Visual Scanning Reasoning * WFL Cognitive-Communication: Other Executive Function * Mild impairment Severity of Cognitive-Communication Deficit * Mild Recommendations * Sp. Tx for Cog-Comm Skill Recommendations Comment * Speech tx for external memory aids, reasoning, problem-solving, and complex divided attention tasks. Supervising DATA ANALYSIS INTERN present, agrees w/ tx and outcomes. MS Brandy, CCC-DATA ANALYSIS INTERN. After Evaluation/Treatment Report Provided to: * Dr. Jones and [facility] team Allergies Coded Allergies: No Known Allergies (Verified , 03/30/03) Vital Signs Vital Signs Date Time Temp Pulse Resp B/P (MAP) Pulse Ox O2 Delivery O2 Flow Rate FiO2 08/08/17 14:00 98.0 79 18 102/57 (72) 95 Room Air Laboratory Data CBC/BMP Laboratory Tests 08/07/17 17:56 Red Blood Count 3.71 L, Mean Corpuscular Volume 89.8, Mean Corpuscular Hemoglobin 29.1, Mean Corpuscular Hemoglobin Concent 32.4, Red Cell Distribution Width 15.9 H, Calcium Level 8.5 L, Aspartate Amino Transf (AST/SGOT ) 25, Alanine Aminotransferase (ALT/SGPT) 43, Alkaline Phosphatase 75, Total Bilirubin 0.8, Total Protein 6.5, Albumin 2.7 L 08/08/17 06:19 Red Blood Count 3.67 L, Mean Corpuscular Volume 91.6, Mean Corpuscular Hemoglobin 29.2, Mean Corpuscular Hemoglobin Concent 31.8 L, Red Cell Distribution Width 16.0 H, Calcium Level 8.5 L, Aspartate Amino Transf (AST/SGOT ) 22, Alanine Aminotransferase (ALT/SGPT) 38, Alkaline Phosphatase 76, Total Bilirubin 0.6, Total Protein 6.1 L, Albumin 2.6 L, Neutrophils (%) (Auto) 64.4, Lymphocytes (%) (Auto) 24.0, Monocytes (%) (Auto) 7.6 H, Eosinophils (%) (Auto) 2.2, Basophils (%) (Auto) 0.6, Neutrophils # (Auto) 6.4, Lymphocytes # (Auto) 2.4, Monocytes # (Auto) 0.8, Eosinophils # (Auto) 0.2, Basophils # (Auto) 0.1 Labs 24H Laboratory Tests 2 08/07/17 17:56: Nucleated Red Blood Cells % (auto) 0.0, Prothrombin Time 14.8H, Prothromb Time International Ratio 1.14, Activated Partial Thromboplast Time 37.7, Anion Gap 8 , Glomerular Filtration Rate > 60.0, Estimated Mean Plasma Glucose 183H, Hemoglobin A1c 8.0, Blood Urea Nitrogen 24H, Creatinine 0.90, Sodium Level 141, Potassium Level 4.2, Chloride Level 104, Carbon Dioxide Level 29, Calcium Level 8.5L, Aspartate Amino Transf (AST/SGOT) 25, Alanine Aminotransferase (ALT/SGPT) 43, Alkaline Phosphatase 75, Total Bilirubin 0.8, Total Protein 6.5, Albumin 2.7L, Albumin/Globulin Ratio 0.71L, Thyroid Stimulating Hormone (TSH) 0.312L, Free Thyroxine 1.12 08/07/17 21:27: Bedside Glucose (Misc Panel) 173H 08/08/17 06:19: Nucleated Red Blood Cells % (auto) 0.0, Prothrombin Time 15.1H, Prothromb Time International Ratio 1.17, Anion Gap 6L, Glomerular Filtration Rate > 60.0, Blood Urea Nitrogen 26H, Creatinine 0.97, Sodium Level 141, Potassium Level 4.4 , Chloride Level 104, Carbon Dioxide Level 31, Calcium Level 8.5L, Aspartate Amino Transf (AST/SGOT) 22, Alanine Aminotransferase (ALT/SGPT) 38, Alkaline Phosphatase 76, Total Bilirubin 0.6, Total Protein 6.1L, Albumin 2.6L, Albumin/ Globulin Ratio 0.74L, Immature Granulocyte % (Auto) 1.2H, White Blood Count 9.9 , Red Blood Count 3.67L, Hemoglobin 10.7L, Hematocrit 33.6L, Mean Corpuscular Volume 91.6, Mean Corpuscular Hemoglobin 29.2, Mean Corpuscular Hemoglobin Concent 31.8L, Red Cell Distribution Width 16.0H, Platelet Count 393, Neutrophils (%) (Auto) 64.4, Lymphocytes (%) (Auto) 24.0, Monocytes (%) (Auto) 7.6H, Eosinophils (%) (Auto) 2.2, Basophils (%) (Auto) 0.6, Neutrophils # (Auto ) 6.4, Lymphocytes # (Auto) 2.4, Monocytes # (Auto) 0.8, Eosinophils # (Auto) 0.2, Basophils # (Auto) 0.1, Immature Granulocyte # (Auto) 0.1H 08/08/17 06:29: Bedside Glucose (Misc Panel) 101 08/08/17 11:54: Bedside Glucose (Misc Panel) 166H 08/08/17 16:32: Bedside Glucose (Misc Panel) 144H Current Medications Current Medications Current Medications Acetaminophen (Tylenol Tab) 650 mg Q6HP PRN PO PAIN OR FEVER; Start 08/07/17 at 13:15; Stop 09/06/17 at 13:14 Amitriptyline HCl (Elavil) 20 mg QHS PO Last administered on 08/07/17 21:46; Start 08/07/17 at 21:00; Stop 09/06/17 at 20:59 Aspirin (Aspirin) 325 mg DAILY PO Last administered on 08/08/17 08:12; Start 08/08/17 at 09:00; Stop 09/07/17 at 08:59 Atorvastatin Calcium (Lipitor) 40 mg QHS PO Last administered on 08/07/17 21: 45; Start 08/07/17 at 21:00; Stop 09/06/17 at 20:59 Carvedilol (COReg) 25 mg BID PO Last administered on 08/08/17 08:13; Start 08/07/17 at 21:00; Stop 09/06/17 at 20:59 Dextrose (Dextrose 50%) 25 ml ASDIRECTED PRN IV SEE LABEL COMMENTS; Start at 14:00; Stop 09/06/17 at 13:59 Enoxaparin Sodium (Lovenox) 70 mg Q12H SC Last administered on 08/08/17 08:12 ; Start 08/07/17 at 21:00; Stop 08/12/17 at 20:59 Enoxaparin Sodium (Lovenox) 90 mg BID SC ; Start 08/07/17 at 21:00; Stop 08/07 at 21:00; Status DC Furosemide (Lasix) 40 mg DAILY PO Last administered on 08/08/17 08:14; Start 08/08/17 at 09:00; Stop 09/07/17 at 08:59 Gabapentin (Neurontin) 300 mg QHS PO Last administered on 08/07/17 21:44; Start 08/07/17 at 21:00; Stop 09/06/17 at 20:59 Glipizide (Glucotrol) 5 mg DAILY@0730 PO ; Start 08/08/17 at 07:30; Stop 08/08 at 07:30; Status DC Glucagon (Glucagon) 1 mg ASDIRECTED PRN SC SEE LABEL COMMENTS; Start 08/07/17 at 14:00; Stop 09/06/17 at 13:59 Glucose (Glucose) 16 GM ASDIRECTED PRN PO SEE LABEL COMMENTS; Start 08/07/17 at 14:00; Stop 09/06/17 at 13:59 Heparin Sodium (Heparin (Flush)) 200 units ASDIRECTED PRN IV SEE LABEL COMMENTS ; Start 08/07/17 at 22:30; Stop 09/06/17 at 22:29 Heparin Sodium (Heparin (Flush)) 200 units PICC IV Last administered on 06:21; Start 08/08/17 at 06:00; Stop 09/07/17 at 05:59 Home Med (Med Rec Complete!) ASDIRECTED XX ; Start 08/07/17 at 15:15; Stop at 15:35; Status DC Insulin Detemir (Levemir Insulin) 40 units QHS SC Last administered on 21:51; Start 08/07/17 at 21:00; Stop 09/06/17 at 20:59 Insulin Detemir (Levemir Insulin) 55 units QHS SC ; Start 08/07/17 at 21:00; Stop 08/07/17 at 21:00; Status DC Insulin Human Lispro (HumaLOG INSULIN) SEE PROTOCOL TABLE AC SC Last administered on 08/08/17 13:07; Start 08/07/17 at 17:30; Stop 09/06/17 at 17 :29 Insulin Human Lispro (HumaLOG INSULIN) SEE PROTOCOL TABLE QHS SC ; Start at 21:00; Stop 09/06/17 at 20:59 Isosorbide Mononitrate (Imdur) 30 mg DAILY PO Last administered on 08/08/17 08:14; Start 08/08/17 at 09:00; Stop 09/07/17 at 08:59 Levothyroxine Sodium (Synthroid) 25 mcg DAILY@06 PO Last administered on 05:12; Start 08/08/17 at 06:00; Stop 09/07/17 at 05:59 Lisinopril (Prinivil) 40 mg DAILY PO Last administered on 08/08/17 08:13; Start 08/08/17 at 09:00; Stop 09/07/17 at 08:59 Meclizine HCl (Antivert) 25 mg BIDP PRN PO DIZZINESS; Start 08/07/17 at 14:00 ; Stop 09/06/17 at 13:59 Metformin HCl (Glucophage) 1,000 mg BID@ PO Last administered on 08:14; Start 08/07/17 at 18:00; Stop 09/06/17 at 17:59 Miscellaneous (Unresolved Clarification Entry) SEE LABEL COMMENTS UNRESOLVED XX ; Start 08/07/17 at 00:01; Stop 08/07/17 at 16:38; Status DC Miscellaneous (Unresolved Clarification Entry) SEE LABEL COMMENTS UNRESOLVED XX ; Start 08/07/17 at 00:01; Stop 08/07/17 at 21:36; Status DC Miscellaneous (Unresolved Non-Formulary Med Order) SEE LABEL COMMENTS UNRESOLVED XX ; Start 08/07/17 at 00:01; Stop 08/07/17 at 17:29; Status DC Miscellaneous (Unresolved Patient Own Med Order) SEE LABEL COMMENTS UNRESOLVED XX ; Start 08/07/17 at 00:01; Stop 09/06/17 at 00:00; Status Cancel Nitroglycerin (Nitrostat (1/ 150)) 0.4 mg Q5MP PRN SL CHEST PAIN; Start at 14:00; Stop 09/06/17 at 13:59 Non-Formulary Medication 1 ea AC PO ; Start 08/07/17 at 17:30; Stop 08/07/17 at 21:51; Status DC Sodium Chloride (Saline Lock Flush) 10 ml ASDIRECTED PRN IV SEE LABEL COMMENTS ; Start 08/07/17 at 22:30; Stop 09/06/17 at 22:29 Sodium Chloride (Saline Lock Flush) 10 ml PICC IV Last administered on 06:21; Start 08/08/17 at 06:00; Stop 09/07/17 at 05:59 Spironolactone (Aldactone) 25 mg QAM PO Last administered on 08/08/17 08:14; Start 08/08/17 at 09:00; Stop 09/07/17 at 08:59 Warfarin Sodium (Coumadin) 5 mg DAILY@17 PO Last administered on 08/07/17t 21: 45; Start 08/07/17 at 17:00; Stop 08/14/17 at 16:59 SABRA JONES MD Aug 08, 2017 18:13
[2017-08-08] MEDS: WARFARIN SOD 5 MG TAB PO SCH (18:19)
[2017-08-08] MEDS: GABAPENTIN 300 MG CAP PO SCH (20:41)
[2017-08-08] MEDS: ATORVASTATIN 20 MG TAB PO SCH (20:41)
[2017-08-08] MEDS: AMITRIPTYLINE 10 MG TAB PO SCH (20:41)
[2017-08-08] MEDS: LEVEMIR (INSULIN DETEMIR) 1 UNITS/0.01ML SC SCH (20:42)
[2017-08-08 22:00] VITALS: BP 142/68
[2017-08-09] MEDS: LEVOTHYROXINE 25MCG TABLET (0.025MG) PO SCH (05:51)
[2017-08-09] MEDS: SODIUM CHLORIDE 0.9% INJ 10 ML SYR IV SCH ×2 (05:51→17:53)
[2017-08-09 06:21] LABS: INR 1.22
[2017-08-09 06:49] VITALS: BP 132/58
[2017-08-09] MEDS: ENOXAPARIN 80 MG/0.8 ML SYRINGE (J1650) SC SCH ×2 (08:17→20:41)
[2017-08-09] MEDS: HumaLOG INSULIN (NovoLOG) PER UNIT SC SCH ×4 (08:17→20:43)
[2017-08-09] MEDS: ASPIRIN 325 MG TAB PO SCH (08:18)
[2017-08-09] MEDS: FUROSEMIDE 40 MG TAB PO SCH (08:19)
[2017-08-09] MEDS: metFORMIN (GLUCOPHAGE) 1000 MG TABLET PO SCH ×2 (08:19→17:52)
[2017-08-09] MEDS: ISOSORBIDE MON. (IMDUR) 30 MG XR TAB PO SCH (08:19)
[2017-08-09] MEDS: CARVedilol 12.5 MG TAB PO SCH ×2 (08:19→20:43)
[2017-08-09] MEDS: LISINOPRIL 40 MG TAB PO SCH (08:19)
[2017-08-09] MEDS: SPIRONOLACTONE 25 MG TAB PO SCH (08:20)
--- NOTE | 2017-08-09 09:56 | IPNPDOC ---
PM&R Progress Note Acetone Button Paster Progress Note DATE OF SERVICE: 08/09/17 DATE OF ADMISSION: Aug 07, 2017 at 12:57 INPATIENT REHABILITATION ADMISSION DAY: #3 SUBJECTIVE: The patient is a 67-year-old white male who developed pain and aching in his left lower extremity and was admitted to [facility] in [place] to the surgical service on 07/19/2017, and found to have developed a clot in the left leg and the bed was placed for ischemia. The patient required fasciotomies and renewed bypass of the leg which was done, but then developed congestive heart failure, edema, sepsis, and fever with confusion, and was felt to be encephalopathic. It is reported that imaging of the brain showed a nonacute but relatively recent CVA which led to his dysphagia and some disorientation and communication disorders. The patient also went into acute respiratory failure along with the congestive heart failure and fluid overload. The patient had difficulty with control of his diabetes mellitus. Overall patient is doing much better with less pain and no significant dyspnea. He did have some the distance of the medial left ankle incision during gaiting today. Patient to get white shoe or wedge shoe insert to control pain and stress and the leg this evening. ALLERGIES: See Below MEDICATIONS: Reviewed, see below. OBJECTIVE: VITAL SIGNS: Please see below. PHYSICAL EXAMINATION: GENERAL: Short well-nourished well-developed late middle-age white male in mild musculoskeletal distress. HEENT: Normocephalic/atraumatic. CARDIOVASCULAR: Regular rate and rhythm with normal S1 and S2. 2/4 bilateral radial pulses. LUNGS: [place] clear to auscultation. ABDOMEN: Soft, benign with normal bowel sounds in all quadrants. NEUROLOGICAL: Alert and well oriented, speech clear coherent and appropriate, affect pleasant and cooperative. Good minus to good strength in bilateral upper and lower extremities. SKIN: Patient multiple left lower extremity wounds incision responding to the AG optifoam with breakdown of some of the eschar. The inferior lateral fasciotomy site where patient has some swelling and a bit more edema mild/ erythema and the other sites is now showing some serous drainage with no odor present. The medial superior leg bypass graft site is showing breakdown of the eschar but no signs of infection. 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 The distal graft site which had been stapled for approximately 20 days the dehisced and is draining some sick dark red sanguinous drainage that appears to be a hematoma breaking down with no purulence, inflammation, odor or pain. This was Steri-Stripped to a closer approximation. An AG Optifoam was reapplied to this site and the Achilles decubitus. Bilateral lower extremities being elevated when patient is in bed to help reduce edema. LABORATORY DATA: Reviewed. Please see below. MICROBIOLOGY: Please see below. IMAGING: No new imaging. DVT prophylaxis ordered?: Aspirin, Lovenox 70 mg twice a day, Coumadin 5 mg. INR subtherapeutic at 1.22. Lovenox to be held and stopped when INR >2.0. ASSESSMENT AND PLAN: 1. Rehabilitation of multiple debilitation: Patient is showing good progress from his acute respiratory failure and congestive heart failure, though tendency when up and active to cannulate fluid in the lower extremity and stretch the incision sites from the fasciotomies and bypass grafts of the left lower extremity continue. Patient however is very motivated and participating well in physical and occupational therapies. 2. Recent CVA with dysphasia: Patient started with speech assessment today please see attached evaluation below. 3. Left lower extremity multiple wounds: At this time there does not appear to be any active infection, but the medial ankle I passed grafts incision site appears to had tenuous healing as the guy were removed after 20 days and the wound dehisced with limited ambulation today and did not show any skin to subcutaneous adherence but rather what appears to be a seroma/hematoma. The wound beds overall though appeared to be starting to granulate and slough eschar. We will continue to follow these. If the wound that the his appears to have an compromise I will consult Dr. Boyce and podiatry. At this point my biggest concern though is a potential for interconnections between the Achilles tendon decubitus and this graft site. The dehisced wound is expelling some clot without signs of infection or active bleeding. We will add a more absorptive dressing under the Optifoam in that incision line. I reviewed the patient with our Edge Stitcher RN, and Mr. Abram Perez today. To facilitate his ability to gait, that is limited by the Achilles Tendon involved decubitus, we need to limit dorsiflexion until the decubitus has healed. The best way to do this is to use a Cam Walker Boot with Heel Build Up. To start, I will order 3/4 inch build up. We also need to keep pressure off the incisions and the decubitus. 4. DVT prophylaxis: Patient currently transitioning to Coumadin from high-dose Lovenox. TIME SPENT: Chart Review, examination and documentation require greater than 25 minutes. Allergies Coded Allergies: No Known Allergies (Verified , 03/30/03) Vital Signs Vital Signs Date Time Temp Pulse Resp B/P (MAP) Pulse Ox O2 Delivery O2 Flow Rate FiO2 08/09/17 08:19 132/58 08/09/17 08:19 90 08/09/17 06:49 98.1 16 92 Room Air Laboratory Data Labs 24H Laboratory Tests 2 08/08/17 11:54: Bedside Glucose (Misc Panel) 166H 08/08/17 16:32: Bedside Glucose (Misc Panel) 144H 08/08/17 20:06: Bedside Glucose (Misc Panel) 160H 08/09/17 05:57: Prothrombin Time 15.6H, Prothromb Time International Ratio 1.22 08/09/17 06:04: Urine Appearance CLEAR, Urine Color YELLOW, Urine pH 5.0, Urine Specific [place] 1.019, Urine Protein NEGATIVE, Urine Glucose (UA) NEGATIVE, Urine Ketones NEGATIVE, Urine Urobilinogen 4.0H, Urine Bilirubin NEGATIVE, Urine Leukocyte Esterase NEGATIVE, Urine Blood NEGATIVE, Urine Nitrite NEGATIVE, Urine WBC (Auto) 1, Urine RBC (Auto) 1, Urine Hyaline Casts (Auto) 0, Urine Bacteria (Auto) NEGATIVE, Urine Squamous Epithelial Cells 1, Urine Mucus (Auto) SMALL, Urine Sperm (Auto) 08/09/17 06:31: Bedside Glucose (Misc Panel) 127H Current Medications Current Medications Current Medications Acetaminophen (Tylenol Tab) 650 mg Q6HP PRN PO PAIN OR FEVER Last administered on 08/09/17 08:18; Start 08/07/17 at 13:15; Stop 09/06/17 at 13:14 Amitriptyline HCl (Elavil) 20 mg QHS PO Last administered on 08/08/17 20:41; Start 08/07/17 at 21:00; Stop 09/06/17 at 20:59 Aspirin (Aspirin) 325 mg DAILY PO Last administered on 08/09/17 08:18; Start 08/08/17 at 09:00; Stop 09/07/17 at 08:59 Atorvastatin Calcium (Lipitor) 40 mg QHS PO Last administered on 08/08/17 20: 41; Start 08/07/17 at 21:00; Stop 09/06/17 at 20:59 Carvedilol (COReg) 25 mg BID PO Last administered on 08/09/17 08:19; Start 08/07/17 at 21:00; Stop 09/06/17 at 20:59 Dextrose (Dextrose 50%) 25 ml ASDIRECTED PRN IV SEE LABEL COMMENTS; Start at 14:00; Stop 09/06/17 at 13:59 Enoxaparin Sodium (Lovenox) 70 mg Q12H SC Last administered on 08/09/17 08:17 ; Start 08/07/17 at 21:00; Stop 08/14/17 at 07:00 Enoxaparin Sodium (Lovenox) 90 mg BID SC ; Start 08/07/17 at 21:00; Stop 08/07 at 21:00; Status DC Furosemide (Lasix) 40 mg DAILY PO Last administered on 08/09/17 08:19; Start 08/08/17 at 09:00; Stop 09/07/17 at 08:59 Gabapentin (Neurontin) 300 mg QHS PO Last administered on 08/08/17 20:41; Start 08/07/17 at 21:00; Stop 09/06/17 at 20:59 Glipizide (Glucotrol) 5 mg DAILY@0730 PO ; Start 08/08/17 at 07:30; Stop 08/08 at 07:30; Status DC Glucagon (Glucagon) 1 mg ASDIRECTED PRN SC SEE LABEL COMMENTS; Start 08/07/17 at 14:00; Stop 09/06/17 at 13:59 Glucose (Glucose) 16 GM ASDIRECTED PRN PO SEE LABEL COMMENTS; Start 08/07/17 at 14:00; Stop 09/06/17 at 13:59 Heparin Sodium (Heparin (Flush)) 200 units ASDIRECTED PRN IV SEE LABEL COMMENTS ; Start 08/07/17 at 22:30; Stop 09/06/17 at 22:29 Heparin Sodium (Heparin (Flush)) 200 units PICC IV Last administered on 05:51; Start 08/08/17 at 06:00; Stop 09/07/17 at 05:59 Home Med (Med Rec Complete!) ASDIRECTED XX ; Start 08/07/17 at 15:15; Stop at 15:35; Status DC Insulin Detemir (Levemir Insulin) 40 units QHS SC Last administered on 20:42; Start 08/07/17 at 21:00; Stop 09/06/17 at 20:59 Insulin Detemir (Levemir Insulin) 55 units QHS SC ; Start 08/07/17 at 21:00; Stop 08/07/17 at 21:00; Status DC Insulin Human Lispro (HumaLOG INSULIN) SEE PROTOCOL TABLE AC SC Last administered on 08/09/17 08:17; Start 08/07/17 at 17:30; Stop 09/06/17 at 17 :29 Insulin Human Lispro (HumaLOG INSULIN) SEE PROTOCOL TABLE QHS SC ; Start at 21:00; Stop 09/06/17 at 20:59 Isosorbide Mononitrate (Imdur) 30 mg DAILY PO Last administered on 08/09/17 08:19; Start 08/08/17 at 09:00; Stop 09/07/17 at 08:59 Levothyroxine Sodium (Synthroid) 25 mcg DAILY@06 PO Last administered on 05:51; Start 08/08/17 at 06:00; Stop 09/07/17 at 05:59 Lisinopril (Prinivil) 40 mg DAILY PO Last administered on 08/09/17 08:19; Start 08/08/17 at 09:00; Stop 09/07/17 at 08:59 Meclizine HCl (Antivert) 25 mg BIDP PRN PO DIZZINESS; Start 08/07/17 at 14:00 ; Stop 09/06/17 at 13:59 Metformin HCl (Glucophage) 1,000 mg BID@08,18 PO Last administered on 08:19; Start 08/07/17 at 18:00; Stop 09/06/17 at 17:59 Miscellaneous (Unresolved Clarification Entry) SEE LABEL COMMENTS UNRESOLVED XX ; Start 08/07/17 at 00:01; Stop 08/07/17 at 16:38; Status DC Miscellaneous (Unresolved Clarification Entry) SEE LABEL COMMENTS UNRESOLVED XX ; Start 08/07/17 at 00:01; Stop 08/07/17 at 21:36; Status DC Miscellaneous (Unresolved Non-Formulary Med Order) SEE LABEL COMMENTS UNRESOLVED XX ; Start 08/07/17 at 00:01; Stop 08/07/17 at 17:29; Status DC Miscellaneous (Unresolved Patient Own Med Order) SEE LABEL COMMENTS UNRESOLVED XX ; Start 08/07/17 at 00:01; Stop 09/06/17 at 00:00; Status Cancel Nitroglycerin (Nitrostat (1/ 150)) 0.4 mg Q5MP PRN SL CHEST PAIN; Start at 14:00; Stop 09/06/17 at 13:59 Non-Formulary Medication 1 ea AC PO ; Start 08/07/17 at 17:30; Stop 08/07/17 at 21:51; Status DC Sodium Chloride (Saline Lock Flush) 10 ml ASDIRECTED PRN IV SEE LABEL COMMENTS ; Start 08/07/17 at 22:30; Stop 09/06/17 at 22:29 Sodium Chloride (Saline Lock Flush) 10 ml PICC IV Last administered on 05:51; Start 08/08/17 at 06:00; Stop 09/07/17 at 05:59 Spironolactone (Aldactone) 25 mg QAM PO Last administered on 08/09/17 08:20; Start 08/08/17 at 09:00; Stop 09/07/17 at 08:59 Warfarin Sodium (Coumadin) 5 mg DAILY@17 PO Last administered on 08/08/17 18: 19; Start 08/07/17 at 17:00; Stop 08/14/17 at 16:59 SABRA JONES MD Aug 09, 2017 09:56
[2017-08-09 14:00] VITALS: BP 124/58
[2017-08-09] MEDS ORDERED: traMADol 50 MG TAB PO PRN (14:45)
[2017-08-09] MEDS: WARFARIN SOD 5 MG TAB PO SCH (17:52)
[2017-08-09 20:00] VITALS: BP 124/61
[2017-08-09] MEDS: GABAPENTIN 300 MG CAP PO SCH (20:42)
[2017-08-09] MEDS: ATORVASTATIN 20 MG TAB PO SCH (20:42)
[2017-08-09] MEDS: LEVEMIR (INSULIN DETEMIR) 1 UNITS/0.01ML SC SCH (20:42)
[2017-08-09] MEDS: AMITRIPTYLINE 10 MG TAB PO SCH (20:42)
[2017-08-10] MEDS: SODIUM CHLORIDE 0.9% INJ 10 ML SYR IV SCH ×2 (05:48→17:07)
[2017-08-10] MEDS: LEVOTHYROXINE 25MCG TABLET (0.025MG) PO SCH (05:48)
[2017-08-10 06:00] VITALS: BP 146/71
[2017-08-10 06:11] LABS: MEAN CORPUSCULAR HEMOGLOBIN 29.3 pg (27.0-33.0); MEAN CORPUSCULAR HGB CONC 31.5 g/dl (32.0-36.5); PLATELET COUNT, AUTOMATED 290 10^3/uL (150-450); RED CELL DISTRIBUTION WIDTH 16.2 % (11.5-14.5); WHITE BLOOD COUNT 7.8 10^3/uL (4.0-10.0)
[2017-08-10 06:20] LABS: INR 1.57
[2017-08-10] MEDS: HumaLOG INSULIN (NovoLOG) PER UNIT SC SCH ×4 (07:30→20:56)
[2017-08-10] MEDS: ASPIRIN 325 MG TAB PO SCH (08:16)
[2017-08-10] MEDS: metFORMIN (GLUCOPHAGE) 1000 MG TABLET PO SCH ×2 (08:16→17:07)
[2017-08-10] MEDS: SPIRONOLACTONE 25 MG TAB PO SCH (08:16)
[2017-08-10] MEDS: FUROSEMIDE 40 MG TAB PO SCH (08:17)
[2017-08-10] MEDS: LISINOPRIL 40 MG TAB PO SCH (08:17)
[2017-08-10] MEDS: ISOSORBIDE MON. (IMDUR) 30 MG XR TAB PO SCH (08:18)
[2017-08-10] MEDS: ENOXAPARIN 80 MG/0.8 ML SYRINGE (J1650) SC SCH ×2 (08:18→20:54)
[2017-08-10] MEDS: CARVedilol 12.5 MG TAB PO SCH ×2 (08:18→20:53)
--- NOTE | 2017-08-10 09:49 | IPNPDOC ---
Subjective Date Seen The patient was seen on 08/10/17. Subjective Chief Complaint/HPI The patient is a 67-year-old male admitted with a reason for visit of Debility S /P Revision Of Femoropopliteal Bypass. Events since last encounter Pt doing well, he has no new concerns. He is doing well with PT. General: Denies: Fatigue Constitutional: Denies: Chills, Fever Pulmonary: Denies: Dyspnea, Cough Cardiovascular: Denies: Chest Pain, Palpitations Gastrointestinal: Denies: Nausea, Vomiting, Diarrhea Psych: Reports: Mood Normal Objective Physical Examination General Exam: Positive: Alert, No Acute Distress Chest Exam: Positive: Clear to auscultation, Normal air movement Heart Exam: Positive: Rate Normal, Regular Rhythm, Negative: Murmurs Abdomen Exam: Positive: Normal bowel sounds, Soft, Negative: Tenderness Extremity Exam: Positive: Edema (LLE trace edema. Bandages C/D/I Right Le no edema) Assessment /Plan Problems (1) PAD (peripheral artery disease) Status: Chronic Response to Treatment: Stable Problem Text: 08/10 INR 1.5 this morning slowly climbing with Coumadin 5 mg daily, will cont, has PT ordered for AM. 08/08 H/O a. insuff Left leg s/p thrombectomy and fem-pop bypass recently with subsequent compartment syndrome requiring fasciotomy Currently with LLE edema and healing wounds Lovenox restarted until Coumadin therapeutic Cont. Lasix and Aldactone for edema (2) S/P bypass graft of extremity Status: Acute Response to Treatment: Stable, Improving (3) Diabetes type 2, uncontrolled Status: Chronic Problem Text: 08/10 - FSBS running in the low 100, 76 this AM. Will decrease Levemir from 40 units to 36 units. 08/08 Cont Levemir, SSRI and Metformin Starlix and Sulfonylurea held to prevent hypoglycemia (4) ASCVD (arteriosclerotic cardiovascular disease) Status: Chronic Response to Treatment: Stable (5) Status post CVA Status: Chronic Response to Treatment: Stable Problem Text: Continue full dose ASA 325 mg daily (6) HTN (hypertension) Status: Chronic Response to Treatment: Stable Plan/VTE VTE Prophylaxis Ordered?: Yes (Lovenox until COumadin therapeutic) VS, I&O, 24H, Fishbone Vital Signs/I&O Vital Signs Date Time Temp Pulse Resp B/P (MAP) Pulse Ox O2 Delivery O2 Flow Rate FiO2 08/10/17 08:18 171/79 08/10/17 08:18 78 08/10/17 06:00 98.4 16 95 Room Air Laboratory Data 24H LABS Laboratory Tests 2 08/09/17 11:38: Bedside Glucose (Misc Panel) 137H 08/09/17 16:55: Bedside Glucose (Misc Panel) 123H 08/09/17 20:23: Bedside Glucose (Misc Panel) 137H 08/10/17 05:52: Nucleated Red Blood Cells % (auto) 0.0, Prothrombin Time 19.2H, Prothromb Time International Ratio 1.57 08/10/17 07:23: Bedside Glucose (Misc Panel) 76L CBC/BMP Laboratory Tests 08/10/17 05:52 Red Blood Count 3.45 L, Mean Corpuscular Volume 93.0, Mean Corpuscular Hemoglobin 29.3, Mean Corpuscular Hemoglobin Concent 31.5 L, Red Cell Distribution Width 16.2 H MELINDA LOVE PA-C Aug 10, 2017 09:49
[2017-08-10 14:13] VITALS: BP 115/63
[2017-08-10] MEDS: WARFARIN SOD 5 MG TAB PO SCH (17:07)
[2017-08-10 20:00] VITALS: BP 164/76
[2017-08-10] MEDS: GABAPENTIN 300 MG CAP PO SCH (20:52)
[2017-08-10] MEDS: ATORVASTATIN 20 MG TAB PO SCH (20:53)
[2017-08-10] MEDS: AMITRIPTYLINE 10 MG TAB PO SCH (20:53)
[2017-08-10] MEDS: LEVEMIR (INSULIN DETEMIR) 1 UNITS/0.01ML SC SCH (20:56)
[2017-08-11 04:59] VITALS: BP 130/61
[2017-08-11] MEDS: SODIUM CHLORIDE 0.9% INJ 10 ML SYR IV SCH ×2 (06:00→17:37)
[2017-08-11] MEDS: LEVOTHYROXINE 25MCG TABLET (0.025MG) PO SCH (06:05)
[2017-08-11 06:40] LABS: INR 1.96
[2017-08-11] MEDS: ENOXAPARIN 80 MG/0.8 ML SYRINGE (J1650) SC SCH ×2 (08:16→21:00)
[2017-08-11] MEDS: ASPIRIN 325 MG TAB PO SCH (08:16)
[2017-08-11] MEDS: HumaLOG INSULIN (NovoLOG) PER UNIT SC SCH ×4 (08:16→21:00)
[2017-08-11] MEDS: CARVedilol 12.5 MG TAB PO SCH ×2 (08:17→20:59)
[2017-08-11] MEDS: FUROSEMIDE 40 MG TAB PO SCH (08:17)
[2017-08-11] MEDS: metFORMIN (GLUCOPHAGE) 1000 MG TABLET PO SCH ×2 (08:17→17:35)
[2017-08-11] MEDS: SPIRONOLACTONE 25 MG TAB PO SCH (08:17)
[2017-08-11] MEDS: ISOSORBIDE MON. (IMDUR) 30 MG XR TAB PO SCH (08:17)
[2017-08-11] MEDS: LISINOPRIL 40 MG TAB PO SCH (08:18)
[2017-08-11 14:00] VITALS: BP 118/64
--- NOTE | 2017-08-11 14:00 | IPNPDOC ---
Subjective Date Seen The patient was seen on 08/11/17. Subjective Chief Complaint/HPI The patient is a 67-year-old male admitted with a reason for visit of Debility S /P Revision Of Femoropopliteal Bypass. Events since last encounter Patient reports that he is feeling good today. His only concern is that he was having a little bleeding from his foot. He denies any GI bleeding. He reports that his sugars have been running better today. I was called back to the unit later in the morning when the nurse was changing his dressings on left ankle to evaluate potential bleeding. Constitutional: Denies: Chills, Fever Pulmonary: Denies: Dyspnea Cardiovascular: Denies: Chest Pain Objective Physical Examination General Exam: Positive: Alert, No Acute Distress Chest Exam: Positive: Clear to auscultation, Normal air movement, Negative: Rales, Rhonchi, Wheezing Heart Exam: Positive: Rate Normal, Regular Rhythm, Normal S1, Normal S2, Negative: Gallops, Murmurs, Rubs Abdomen Exam: Positive: Normal bowel sounds, Soft, Negative: Tenderness, Hepatospenomegaly, Mass Extremity Exam: Positive: Other (Bandages C/D/I Right Le no edema. Left lower extremity with dark coagulated blood draining from wound, no bright red acute bleeding) Assessment /Plan Problems (1) PAD (peripheral artery disease) Status: Chronic Response to Treatment: Stable Problem Text: 08/11: INR of 1.96 today, continue Coumadin 5 mg daily, repeat INR tomorrow morning 08/10 INR 1.5 this morning slowly climbing with Coumadin 5 mg daily, will cont, has PT ordered for AM. 08/08 H/O a. insuff Left leg s/p thrombectomy and fem-pop bypass recently with subsequent compartment syndrome requiring fasciotomy Currently with LLE edema and healing wounds Lovenox restarted until Coumadin therapeutic Cont. Lasix and Aldactone for edema (2) S/P bypass graft of extremity Status: Acute Response to Treatment: Stable, Improving (3) Diabetes type 2, uncontrolled Status: Chronic Problem Text: 08/11: Blood sugars yesterday: 162, 120, 182, 149, 106. Continue Levemir 36 units 08/10 - FSBS running in the low 100, 76 this AM. Will decrease Levemir from 40 units to 36 units. 08/08 Cont Levemir, SSRI and Metformin Starlix and Sulfonylurea held to prevent hypoglycemia (4) ASCVD (arteriosclerotic cardiovascular disease) Status: Chronic Response to Treatment: Stable (5) Status post CVA Status: Chronic Response to Treatment: Stable Problem Text: Continue full dose ASA 325 mg daily (6) HTN (hypertension) Status: Chronic Response to Treatment: Stable Plan/VTE VTE Prophylaxis Ordered?: Yes (Lovenox until COumadin therapeutic) VS, I&O, 24H, Fishbone Vital Signs/I&O Vital Signs Date Time Temp Pulse Resp B/P (MAP) Pulse Ox O2 Delivery O2 Flow Rate FiO2 08/11/17 08:17 86 130/61 08/11/17 08:00 Room Air 08/11/17 04:59 98.9 18 94 I&O- Last 24 Hours up to 6 AM 08/12/17 06:00 Intake Total 780 ml Balance 780 ml Laboratory Data 24H LABS Laboratory Tests 2 08/10/17 16:35: Bedside Glucose (Misc Panel) 120H 08/10/17 19:39: Bedside Glucose (Misc Panel) 182H 08/11/17 06:10: Prothrombin Time 23.0H, Prothromb Time International Ratio 1.96 08/11/17 06:51: Bedside Glucose (Misc Panel) 149H 08/11/17 11:40: Bedside Glucose (Misc Panel) 106 GME ATTESTATION GME ATTESTATION My faculty preceptor for this patient encounter was physically present during the encounter and was fully available. All aspects of the patient interview, examination, medical decision making process, and medical care plan development were reviewed and approved by the faculty preceptor. The faculty preceptor is aware and concurs with the plan as stated in the body of this note and will attest to such by his/her cosignature. Attending Note Attending Note Patient doing well. Affirm finding by PARAS Black DO Aug 11, 2017 13:59 Edward Kennedy MD Aug 11, 2017 18:44
[2017-08-11] MEDS: WARFARIN SOD 5 MG TAB PO SCH (17:36)
[2017-08-11 20:25] VITALS: BP 121/67
[2017-08-11] MEDS: GABAPENTIN 300 MG CAP PO SCH (20:58)
[2017-08-11] MEDS: ATORVASTATIN 20 MG TAB PO SCH (20:58)
[2017-08-11] MEDS: AMITRIPTYLINE 10 MG TAB PO SCH (20:59)
[2017-08-11] MEDS: LEVEMIR (INSULIN DETEMIR) 1 UNITS/0.01ML SC SCH (21:00)
[2017-08-12 05:26] VITALS: BP 120/67
[2017-08-12] MEDS: LEVOTHYROXINE 25MCG TABLET (0.025MG) PO SCH (05:47)
[2017-08-12] MEDS: SODIUM CHLORIDE 0.9% INJ 10 ML SYR IV SCH ×2 (05:59→18:10)
[2017-08-12 06:22] LABS: INR 2.01
[2017-08-12] MEDS: HumaLOG INSULIN (NovoLOG) PER UNIT SC SCH ×4 (07:30→20:28)
[2017-08-12] MEDS: ISOSORBIDE MON. (IMDUR) 30 MG XR TAB PO SCH (08:53)
[2017-08-12] MEDS: ENOXAPARIN 80 MG/0.8 ML SYRINGE (J1650) SC SCH ×2 (08:53→20:32)
[2017-08-12] MEDS: FUROSEMIDE 40 MG TAB PO SCH (08:53)
[2017-08-12] MEDS: metFORMIN (GLUCOPHAGE) 1000 MG TABLET PO SCH ×2 (08:53→18:09)
[2017-08-12] MEDS: CARVedilol 12.5 MG TAB PO SCH ×2 (08:54→20:30)
[2017-08-12] MEDS: SPIRONOLACTONE 25 MG TAB PO SCH (08:54)
[2017-08-12] MEDS: LISINOPRIL 40 MG TAB PO SCH (08:54)
[2017-08-12] MEDS: ASPIRIN 325 MG TAB PO SCH (08:54)
--- NOTE | 2017-08-12 09:26 | IPNPDOC ---
Subjective Date Seen The patient was seen on 08/12/17. Subjective Chief Complaint/HPI The patient is a 67-year-old male admitted with a reason for visit of Debility S /P Revision Of Femoropopliteal Bypass. General: Denies: Chills, Night Sweats Pulmonary: Denies: Dyspnea, Cough Cardiovascular: Denies: Chest Pain, Palpitations Gastrointestinal: Denies: Nausea, Abdominal Pain Psych: Reports: Mood Normal Objective Physical Examination General Exam: Positive: Alert, No Acute Distress Chest Exam: Positive: Clear to auscultation, Normal air movement, Negative: Rales, Rhonchi, Wheezing Heart Exam: Positive: Rate Normal, Regular Rhythm, Normal S1, Normal S2, Negative: Gallops, Murmurs, Rubs Abdomen Exam: Positive: Normal bowel sounds, Soft, Negative: Tenderness, Hepatospenomegaly, Mass Extremity Exam: Positive: Other (Bandages C/D/I Right Le no edema. Left lower extremity with dark coagulated blood draining from wound, no bright red acute bleeding) Assessment /Plan Problems (1) PAD (peripheral artery disease) Status: Chronic Response to Treatment: Stable Problem Text: 08/12: INR therapeutic range today at 2.01 Continue warfarin 5mg 08/11: INR of 1.96 today, continue Coumadin 5 mg daily, repeat INR tomorrow morning 08/10 INR 1.5 this morning slowly climbing with Coumadin 5 mg daily, will cont, has PT ordered for AM. 08/08 H/O a. insuff Left leg s/p thrombectomy and fem-pop bypass recently with subsequent compartment syndrome requiring fasciotomy Currently with LLE edema and healing wounds Lovenox restarted until Coumadin therapeutic Cont. Lasix and Aldactone for edema (2) S/P bypass graft of extremity Status: Acute Response to Treatment: Stable, Improving (3) Diabetes type 2, uncontrolled Status: Chronic Response to Treatment: Stable Problem Text: 08/12: blood sugars low this am, will reduce Levemir to 30 08/11: Blood sugars yesterday: 162, 120, 182, 149, 106. Continue Levemir 36 units 08/10 - FSBS running in the low 100, 76 this AM. Will decrease Levemir from 40 units to 36 units. 08/08 Cont Levemir, SSRI and Metformin Starlix and Sulfonylurea held to prevent hypoglycemia (4) ASCVD (arteriosclerotic cardiovascular disease) Status: Chronic Response to Treatment: Stable (5) Status post CVA Status: Chronic Response to Treatment: Stable Problem Text: Continue full dose ASA 325 mg daily (6) HTN (hypertension) Status: Chronic Response to Treatment: Stable Plan/VTE VTE Prophylaxis Ordered?: Yes (Lovenox until COumadin therapeutic) VS, I&O, 24H, Fishbone Vital Signs/I&O Vital Signs Date Time Temp Pulse Resp B/P (MAP) Pulse Ox O2 Delivery O2 Flow Rate FiO2 08/12/17 08:53 120/67 08/12/17 05:26 98.2 88 18 95 Room Air Laboratory Data 24H LABS Laboratory Tests 2 08/11/17 11:40: Bedside Glucose (Misc Panel) 106 08/11/17 16:39: Bedside Glucose (Misc Panel) 132H 08/11/17 20:09: Bedside Glucose (Misc Panel) 142H 08/12/17 05:51: Prothrombin Time 23.4H, Prothromb Time International Ratio 2.01 08/12/17 06:19: Bedside Glucose (Misc Panel) 55L 08/12/17 06:42: Bedside Glucose (Misc Panel) 47L 08/12/17 07:01: Bedside Glucose (Misc Panel) 73L Edward Kennedy MD Aug 12, 2017 09:26
[2017-08-12 14:00] VITALS: BP 117/57
[2017-08-12] MEDS: WARFARIN SOD 5 MG TAB PO SCH (18:09)
[2017-08-12 20:00] VITALS: BP 123/63
[2017-08-12] MEDS: AMITRIPTYLINE 10 MG TAB PO SCH (20:28)
[2017-08-12] MEDS: ATORVASTATIN 20 MG TAB PO SCH (20:28)
[2017-08-12] MEDS: GABAPENTIN 300 MG CAP PO SCH (20:28)
[2017-08-12] MEDS ORDERED: LEVEMIR (INSULIN DETEMIR) 1 UNITS/0.01ML SC SCH (21:00)
[2017-08-13] MEDS: LEVOTHYROXINE 25MCG TABLET (0.025MG) PO SCH (05:20)
[2017-08-13] MEDS: SODIUM CHLORIDE 0.9% INJ 10 ML SYR IV SCH ×2 (05:20→17:19)
[2017-08-13 05:28] LABS: MEAN CORPUSCULAR HGB CONC 31.9 g/dl (32.0-36.5); MEAN CORPUSCULAR VOLUME 91.1 fl (80.0-96.0); PLATELET COUNT, AUTOMATED 214 10^3/uL (150-450); RED CELL DISTRIBUTION WIDTH 16.2 % (11.5-14.5); WHITE BLOOD COUNT 5.5 10^3/uL (4.0-10.0)
[2017-08-13 05:38] LABS: INR 2.32
[2017-08-13 06:00] VITALS: BP 119/62
[2017-08-13 06:07] LABS: ANION GAP 8 MEQ/L (8-16); BLOOD UREA NITROGEN 24 MG/DL (7-18); CALCIUM LEVEL 7.6 MG/DL (8.8-10.2); CARBON DIOXIDE LEVEL 24 MEQ/L (21-32); CHLORIDE LEVEL 109 MEQ/L (98-107); CREATININE FOR GFR 0.98 MG/DL (0.70-1.30); GLOMERULAR FILTRATION RATE > 60.0 (>49); GLUCOSE, FASTING 139 MG/DL (80-110); POTASSIUM SERUM 4.4 MEQ/L (3.5-5.1); SODIUM LEVEL 141 MEQ/L (136-145)
[2017-08-13] MEDS: ENOXAPARIN 80 MG/0.8 ML SYRINGE (J1650) SC SCH (07:46)
[2017-08-13] MEDS: SPIRONOLACTONE 25 MG TAB PO SCH (08:22)
[2017-08-13] MEDS: ISOSORBIDE MON. (IMDUR) 30 MG XR TAB PO SCH (08:22)
[2017-08-13] MEDS: FUROSEMIDE 40 MG TAB PO SCH (08:22)
[2017-08-13] MEDS: HumaLOG INSULIN (NovoLOG) PER UNIT SC SCH ×4 (08:22→21:00)
[2017-08-13] MEDS: metFORMIN (GLUCOPHAGE) 1000 MG TABLET PO SCH ×2 (08:22→17:18)
[2017-08-13] MEDS: LISINOPRIL 40 MG TAB PO SCH (08:23)
[2017-08-13] MEDS: ASPIRIN 325 MG TAB PO SCH (08:23)
[2017-08-13] MEDS: CARVedilol 12.5 MG TAB PO SCH ×2 (08:23→20:21)
[2017-08-13 14:00] VITALS: BP 109/61
[2017-08-13] MEDS: WARFARIN SOD 5 MG TAB PO SCH (17:19)
[2017-08-13 20:00] VITALS: BP 123/67
[2017-08-13] MEDS: ATORVASTATIN 20 MG TAB PO SCH (20:20)
[2017-08-13] MEDS: GABAPENTIN 300 MG CAP PO SCH (20:21)
[2017-08-13] MEDS: AMITRIPTYLINE 10 MG TAB PO SCH (20:21)
[2017-08-14 06:00] VITALS: BP 117/67
[2017-08-14] MEDS: SODIUM CHLORIDE 0.9% INJ 10 ML SYR IV SCH (06:02)
[2017-08-14] MEDS: LEVOTHYROXINE 25MCG TABLET (0.025MG) PO SCH (06:02)
[2017-08-14 06:26] LABS: INR 2.85
[2017-08-14] MEDS: metFORMIN (GLUCOPHAGE) 1000 MG TABLET PO SCH (08:56)
[2017-08-14] MEDS: ASPIRIN 325 MG TAB PO SCH (08:56)
[2017-08-14] MEDS: ISOSORBIDE MON. (IMDUR) 30 MG XR TAB PO SCH (08:56)
[2017-08-14 08:57] VITALS: BP 117/67
[2017-08-14] MEDS: CARVedilol 12.5 MG TAB PO SCH (08:57)
[2017-08-14] MEDS: SPIRONOLACTONE 25 MG TAB PO SCH (08:57)
[2017-08-14] MEDS: FUROSEMIDE 40 MG TAB PO SCH (08:57)
[2017-08-14] MEDS: LISINOPRIL 40 MG TAB PO SCH (08:57)
[2017-08-14] MEDS: HumaLOG INSULIN (NovoLOG) PER UNIT SC SCH ×2 (08:58→13:03)
[2017-08-14] MEDS ORDERED: COUM1TAB17 PO (12:38)
[2017-08-14] MEDS ORDERED: SYNT25TA PO (12:38)
[2017-08-14] MEDS ORDERED: ATOR40TA75 PO (12:38)
[2017-08-14] MEDS ORDERED: ISOS30TA4 PO (12:38)
--- NOTE | 2017-08-19 16:27 | PMRDS ---
DATE OF ADMISSION: 08/07/2017 DATE OF DISCHARGE: 08/14/2017 DISCHARGE DIAGNOSES: 1. Rehabilitation of multiple source debilitation including left leg thrombosis and bypass grafting with compartment syndrome of the left leg, status post fasciotomies, repeat grafting. 2. Sepsis. 3. Congestive heart failure. 4. Pneumonia. 5. Ongoing dysphagia related to a cerebrovascular accident (CVA). HISTORY: The patient is a 67-year-old white male who developed pain and aching in his left lower extremity and was admitted to [facility] in [place], [place] to the surgical service on 07/19/2017 where they found he had developed a clot in his left leg in his preexisting graft and developed ischemia and compartment syndrome and had renewed bypass grafting and fasciotomies. The patient developed congestive heart failure, edema, sepsis leading to confusion with fever, felt to be encephalopathic, and imaging of the brain at that time did show a recent cerebrovascular accident (CVA) leading to some dysphagia, disorientation and communication deficits. The patient went into notable congestive heart failure with fluid overload and he was started in treatment for the infections including antibiotics and diuresis. PAST MEDICAL HISTORY: Includes left lower extremity bypass graft, atherosclerotic cardiovascular disease, congestive heart failure, hypertension, hyperlipidemia, coronary artery disease, status post coronary artery angioplasty, chronic obstructive pulmonary disease (COPD) with chronic bronchitis, peripheral vascular disease, type 2 diabetes mellitus. This resulted in the patient developing respiratory failure, acute kidney disease, acute encephalopathy, hyperglycemia, hypoxic encephalopathy and compartment syndrome of the left lower extremity during the course of his acute admission. PAST SURGICAL HISTORY: Also includes coronary angioplasty, left lower extremity arterial bypass graft, fasciotomies, inguinal hernia repair, appendectomy, stent placement in the left lower extremity. PROCEDURES: None on this unit. DIAGNOSTIC STUDIES: The patient with only mild anemia. Hemoglobin and hematocrit being 10.8 and 33.3 on admission, and 10.1 and 31.7 at discharge. BUN being elevated throughout the admission mildly at approximately 24-26 but normal creatinines, normal electrolytes except at the time of discharge chloride was mildly elevated at 109. Albumin diminished at approximately 2.6 during the admission. The patient was transitioned to Coumadin and at the time of discharge, INR was 2.85 to be followed by Dr. Agee, his primary care group. Blood sugars did show some low levels in approximately 19s but then corrected and all other values are all in 100s. HOSPITAL COURSE: The patient admitted on 08/07/2017, started in evaluation of physical therapy (PT), occupational therapy (OT), speech therapy along with assessment by [facility] as well as physiatry and rehabilitation nursing. Speech therapy did language and swallowing evaluation. No followup was needed for the language and the patient did not have apparent advanceable swallowing skills so no change was made there and linguistic evaluation showed only mild impairment that appeared to be stable. OT found the patient to be minimal assist to standby assist in dressing, contact guard in bathing, transfers with fair plus dynamic standing balance on initial evaluation, and progressed to modified independent with good dynamic standing balance in activities of daily living (ADLs), dressing, toileting, transfers during his admission, and physical therapy similarly noting decreased standing dynamic balance initially and not able to ambulate more than a few feet due to the pain and the left calf which was corrected with a CAM walker shoe with heel lift which was obtained during the patient's admission to being able to ambulate 350 feet with modified independence using a quad cane and also being able to perform steps to allow his return to home. DISCHARGE MEDICATIONS: - Coumadin 5 mg daily to be managed by Dr. Agee and family medicine group - Tylenol 650 mg every six hours as needed - aspirin 325 mg daily - atorvastatin 40 mg at bedtime - Coreg 25 mg twice a day - Lasix 40 mg daily - gabapentin 300 mg at bedtime - glipizide 5 mg daily - Lantus 55 units subcutaneously at bedtime - isosorbide mononitrate extended release 30 mg daily - Synthroid 25 mcg daily - lisinopril 40 mg daily - meclizine 25 mg twice a day for any dizziness on an as-needed basis - metformin 1000 mg twice a day with meals - Starlix 125 mg by mouth three times a day - Nitrostat 0.4 mg sublingually every five minutes as needed for angina - spironolactone 25 mg daily The patient is also on Optifoam dressings to the three fasciotomy sites on the lateral left leg and the stage IV decubitus over the Achilles tendon that he arrived with and the open areas of the bypass grafting. The patient was able to breakdown and expel the hematoma underneath the distal bypass grafting incision which at 20 days had guy removed and opened up during the course of ambulation and then had clot breakdown and removed had been underlying throughout the course of his prior admission as well as this admission to that time. Otherwise, no complications and the patient's wounds cleaned up and do not show any signs of having developed any further breakdown or infection. In fact, he is showing improvement in the wounds. DISCHARGE PLAN: The patient is discharged to home with family and home care. Physical therapy (PT) nursing to continue with reconditioning mobility training. He is to followup with [facility] within two weeks and to have twice a week prothrombin time, international normalized ratios (INRs), and to followup with vascular surgery at [facility]. An appointment has been arranged. TIME SPENT ON DISCHARGE: Greater than 35 minutes.
== END 2017-08-14 13:25 | disposition home health service (06) | DRG 949 ==
LOC: M PM&R 12:57
PROVIDERS: ADMIT Physical Medicine & Rehabilitation; ATTEND Physical Medicine & Rehabilitation
DX: Z48.812 Encounter for surgical aftercare following surgery on the circulatory system (principal); I13.0 Hypertensive heart and chronic kidney disease with heart failure and stage 1 through stage 4 chronic kidney disease, or unspecified chronic kidney disease; E11.40 Type 2 diabetes mellitus with diabetic neuropathy, unspecified; I69.391 Dysphagia following cerebral infarction; I50.9 Heart failure, unspecified; G57.32 Lesion of lateral popliteal nerve, left lower limb; N18.3 Chronic kidney disease, stage 3 (moderate); E78.5 Hyperlipidemia, unspecified; I25.10 Atherosclerotic heart disease of native coronary artery without angina pectoris; F17.210 Nicotine dependence, cigarettes, uncomplicated; J44.9 Chronic obstructive pulmonary disease, unspecified; I73.9 Peripheral vascular disease, unspecified; Z79.899 Other long term (current) drug therapy; Z79.82 Long term (current) use of aspirin; Z79.01 Long term (current) use of anticoagulants; I25.2 Old myocardial infarction; Z95.5 Presence of coronary angioplasty implant and graft; Z95.820 Peripheral vascular angioplasty status with implants and grafts; Z79.4 Long term (current) use of insulin

== ENCOUNTER → 2017-08-20 | Outpatient (REF) | payer MEDICARE ==
[~2017-08-20] MED LIST changes: -**UNRESOLVED NON-FORMULARY MED ORDER XX SCH; +ACET1TAB17 PO; +AMIT10TA PO; +ASPI325T PO; +ATOR40TA75 PO; +CARV25TA PO; +COUM1TAB17 PO; +FURO40TA2 PO; +GABA-282 PO; +GLIP5TAB8 PO; +INSULANT SC; +ISOS30TA4 PO; +LISI-538 PO; +LOVE0.8I SC; +MECL-86 PO; +METF10004 PO; +NITR4TASL SL; +SILV40CR EXT; +SPIR25TA2 PO; +STAR120T3 PO; +SYNT25TA PO
[2017-08-20 15:27] LABS: INR 1.45
== END ==
LOC: M SHH 14:45
PROVIDERS: ATTEND Physical Medicine & Rehabilitation
DX: Z95.828 Presence of other vascular implants and grafts (principal)

== ENCOUNTER → 2017-08-23 | Outpatient (REF) | payer MEDICARE ==
[2017-08-23 16:05] LABS: INR 2.51
== END ==
LOC: M SHH 14:59
PROVIDERS: ATTEND Physical Medicine & Rehabilitation
DX: Z95.828 Presence of other vascular implants and grafts (principal)

== ENCOUNTER → 2017-08-27 | Outpatient (REF) | payer MEDICARE ==
[2017-08-27 15:38] LABS: INR 3.2
== END ==
LOC: M SHH 14:55
PROVIDERS: ATTEND Physician Assistant
DX: Z95.828 Presence of other vascular implants and grafts (principal)

== ENCOUNTER → 2017-08-30 | Outpatient (REF) | payer MEDICARE ==
[2017-08-30 15:02] LABS: INR 1.75
== END ==
LOC: M SHH 14:45
PROVIDERS: ATTEND Physician Assistant Medical
DX: I82.409 Acute embolism and thrombosis of unspecified deep veins of unspecified lower extremity (principal)

== ENCOUNTER → 2017-09-03 | Outpatient (REF) | payer MEDICARE ==
[2017-09-03 15:27] LABS: INR 2.44
== END ==
LOC: M SHH 15:05
PROVIDERS: ATTEND Family Medicine
DX: Z51.81 Encounter for therapeutic drug level monitoring (principal); Z79.01 Long term (current) use of anticoagulants; I82.409 Acute embolism and thrombosis of unspecified deep veins of unspecified lower extremity

== ENCOUNTER → 2017-09-06 | Outpatient (REF) | payer MEDICARE ==
[~2017-09-06] MED LIST changes: +AMMO12CR4 TOP; +LEVO25TA5 PO; +NORC1TAB4 PO; +WARF-23 PO
[2017-09-06 15:24] LABS: INR 2.33
== END ==
LOC: M SHH 14:59
PROVIDERS: ATTEND Physician Assistant Medical
DX: I82.409 Acute embolism and thrombosis of unspecified deep veins of unspecified lower extremity (principal); Z95.828 Presence of other vascular implants and grafts

== ENCOUNTER 2017-09-09 13:03 | Inpatient (IN) | payer MEDICARE ==
[2017-09-09] MEDS: SODIUM CHLORIDE 0.9% 1000 ML IV (13:45)
[2017-09-09 13:58] LABS: BASO # 0.1 10^3/uL (0.0-0.2); BASO % 1.3 % (0.0-1.0); EOS # 0.2 10^3/uL (0.0-0.50); EOS % 2.3 % (0.0-3.0); IMMATURE GRANULOCYTE # 0.1 10^3/uL (0-0); IMMATURE GRANULOCYTE % 0.8 % (0-0); LYMPH % 23.3 % (24.0-44.0); MEAN CORPUSCULAR HEMOGLOBIN 30.1 pg (27.0-33.0); MEAN CORPUSCULAR HGB CONC 32.4 g/dl (32.0-36.5); MEAN CORPUSCULAR VOLUME 92.8 fl (80.0-96.0); MONO # 0.5 10^3/uL (0.0-0.8); MONO % 6.3 % (0.0-5.0); NEUTROPHILS # 5.7 10^3/uL (1.8-7.7); PLATELET COUNT, AUTOMATED 199 10^3/uL (150-450); RED CELL DISTRIBUTION WIDTH 15.9 % (11.5-14.5); WHITE BLOOD COUNT 8.6 10^3/uL (4.0-10.0)
[2017-09-09 14:18] LABS: ALBUMIN 3.2 GM/DL (3.2-5.2); ALBUMIN/GLOBULIN RATIO 0.84 (1.00-1.93); ALKALINE PHOSPHATASE 69 U/L (45-117); ALT/SGPT 18 U/L (12-78); ANION GAP 10 MEQ/L (8-16); AST/SGOT 11 U/L (7-37); BILIRUBIN,TOTAL 0.3 MG/DL (0.2-1.0); BLOOD UREA NITROGEN 44 MG/DL (7-18); CALCIUM LEVEL 7.6 MG/DL (8.8-10.2); CARBON DIOXIDE LEVEL 22 MEQ/L (21-32); CHLORIDE LEVEL 106 MEQ/L (98-107); CREATININE FOR GFR 2.38 MG/DL (0.70-1.30); GLOMERULAR FILTRATION RATE 29.3 (>49); GLUCOSE, FASTING 183 MG/DL (80-110); MAGNESIUM LEVEL 1.7 MG/DL (1.8-2.4); POTASSIUM SERUM 4.7 MEQ/L (3.5-5.1); SODIUM LEVEL 138 MEQ/L (136-145)
[2017-09-09 14:20] LABS: ERYTHROCYTE SEDIMENTATION RATE 34 mm/hr (0-20)
[2017-09-09 14:30] LABS: LACTIC ACID SEPSIS PROTOCOL 2.3 MMOL/L (0.4-2.0)
[2017-09-09 16:00] LABS: INR 2.82
[2017-09-09] MEDS ORDERED: NITROGLYCERIN 0.4 MG SUBL TABLET SL (17:45)
[2017-09-09] MEDS: WARFARIN SOD 5 MG TAB PO (18:50)
[2017-09-09] MEDS: ATORVASTATIN 20 MG TAB PO (18:50)
[2017-09-09] MEDS: NS 1,000 ML IV (18:50)
[2017-09-09 18:58] LABS: INR 2.92
[2017-09-09] MEDS: GABAPENTIN 300 MG CAP PO (20:55)
[2017-09-09] MEDS: DOCUSATE SODIUM 100 MG CAP PO (20:55)
[2017-09-09] MEDS: LEVEMIR (INSULIN DETEMIR) 1 UNITS/0.01ML SC (20:55)
[2017-09-09] MEDS: CARVedilol 12.5 MG TAB PO (20:56)
[2017-09-10 05:48] LABS: ANION GAP 7 MEQ/L (8-16); BLOOD UREA NITROGEN 48 MG/DL (7-18); CALCIUM LEVEL 8.1 MG/DL (8.8-10.2); CARBON DIOXIDE LEVEL 24 MEQ/L (21-32); CHLORIDE LEVEL 112 MEQ/L (98-107); CREATININE FOR GFR 1.82 MG/DL (0.70-1.30); GLOMERULAR FILTRATION RATE 39.9 (>49); GLUCOSE, FASTING 70 MG/DL (80-110); INR 3.14; POTASSIUM SERUM 4.1 MEQ/L (3.5-5.1); SODIUM LEVEL 143 MEQ/L (136-145)
[2017-09-10] MEDS: LEVOTHYROXINE 25MCG TABLET (0.025MG) PO (05:50)
[2017-09-10] MEDS: NS 1,000 ML IV ×2 (05:51→20:51)
[2017-09-10] MEDS: DOCUSATE SODIUM 100 MG CAP PO ×2 (08:14→20:51)
[2017-09-10] MEDS: CARVedilol 12.5 MG TAB PO ×2 (08:14→20:52)
[2017-09-10] MEDS: ASPIRIN 325 MG TAB PO (08:14)
[2017-09-10] MEDS: ISOSORBIDE MON. (IMDUR) 30 MG XR TAB PO (08:15)
[2017-09-10] MEDS: WARFARIN SOD 5 MG TAB PO (16:55)
[2017-09-10] MEDS: HumaLOG INSULIN (NovoLOG) PER UNIT SC ×2 (16:55→20:52)
[2017-09-10] MEDS: LEVEMIR (INSULIN DETEMIR) 1 UNITS/0.01ML SC (20:51)
[2017-09-10] MEDS: GABAPENTIN 300 MG CAP PO (20:51)
[2017-09-10] MEDS: ATORVASTATIN 20 MG TAB PO (20:52)
[2017-09-11 05:45] LABS: INR 3.49
[2017-09-11 05:51] LABS: ANION GAP 10 MEQ/L (8-16); BLOOD UREA NITROGEN 38 MG/DL (7-18); CALCIUM LEVEL 7.8 MG/DL (8.8-10.2); CARBON DIOXIDE LEVEL 20 MEQ/L (21-32); CHLORIDE LEVEL 116 MEQ/L (98-107); CREATININE FOR GFR 1.58 MG/DL (0.70-1.30); GLOMERULAR FILTRATION RATE 46.9 (>49); GLUCOSE, FASTING 109 MG/DL (80-110); POTASSIUM SERUM 4.3 MEQ/L (3.5-5.1); SODIUM LEVEL 146 MEQ/L (136-145)
[2017-09-11] MEDS: LEVOTHYROXINE 25MCG TABLET (0.025MG) PO (06:04)
[2017-09-11 08:38] LABS: MEAN CORPUSCULAR HEMOGLOBIN 29.9 pg (27.0-33.0); MEAN CORPUSCULAR HGB CONC 32.1 g/dl (32.0-36.5); PLATELET COUNT, AUTOMATED 202 10^3/uL (150-450); RED CELL DISTRIBUTION WIDTH 15.7 % (11.5-14.5); WHITE BLOOD COUNT 7.4 10^3/uL (4.0-10.0)
[2017-09-11] MEDS: HumaLOG INSULIN (NovoLOG) PER UNIT SC ×4 (09:01→21:00)
[2017-09-11] MEDS: ASPIRIN 325 MG TAB PO (09:03)
[2017-09-11] MEDS: CARVedilol 12.5 MG TAB PO ×2 (09:03→21:49)
[2017-09-11] MEDS: D5W/0.45% SODIUM CHLORIDE 1,000 ML IV (09:03)
[2017-09-11] MEDS: ISOSORBIDE MON. (IMDUR) 30 MG XR TAB PO (09:04)
[2017-09-11] MEDS: DOCUSATE SODIUM 100 MG CAP PO ×2 (09:04→21:49)
[2017-09-11] MEDS: PREVNAR 13 VACCINE SYRINGE (CPT CODE:90670) IM (09:05)
[2017-09-11] MEDS: INFLUENZA VIRUS VACCINE HIGH DOSE 0.5 ML SYRINGE (90662) IM (09:06)
[2017-09-11] MEDS ORDERED: fentaNYL 100 MCG/2 ML INJECTION (J3010) As Ordered ×2 (18:23→18:49)
[2017-09-11] MEDS ORDERED: MIDAZOLAM INJ 2 MG/2 ML VIAL (J2250) As Ordered (18:24)
[2017-09-11] MEDS ORDERED: fentaNYL 100 MCG/2 ML INJECTION (J3010) IV (19:30)
[2017-09-11] MEDS ORDERED: ONDANSETRON 4MG/2ML VIAL (J2405) IV (19:30)
[2017-09-11] MEDS: ACETAMINOPHEN TAB 650MG DOSE (2X325MG) PO (21:49)
[2017-09-11] MEDS: ATORVASTATIN 20 MG TAB PO (21:49)
[2017-09-11] MEDS: GABAPENTIN 300 MG CAP PO (21:49)
[2017-09-11] MEDS: WARFARIN SOD 2.5 MG TAB PO (21:50)
[2017-09-11] MEDS: LEVEMIR (INSULIN DETEMIR) 1 UNITS/0.01ML SC (21:51)
[2017-09-12] MEDS: LEVOTHYROXINE 25MCG TABLET (0.025MG) PO (05:24)
[2017-09-12] MEDS: ACETAMINOPHEN TAB 650MG DOSE (2X325MG) PO (05:24)
[2017-09-12 05:36] LABS: BASO # 0.1 10^3/uL (0.0-0.2); BASO % 0.9 % (0.0-1.0); EOS # 0.2 10^3/uL (0.0-0.50); EOS % 3.5 % (0.0-3.0); IMMATURE GRANULOCYTE % 0.4 % (0-0); LYMPH # 1.3 10^3/uL (1.5-4.5); LYMPH % 24.5 % (24.0-44.0); MEAN CORPUSCULAR HEMOGLOBIN 29.4 pg (27.0-33.0); MEAN CORPUSCULAR HGB CONC 32.8 g/dl (32.0-36.5); MEAN CORPUSCULAR VOLUME 89.5 fl (80.0-96.0); MONO # 0.5 10^3/uL (0.0-0.8); MONO % 8.6 % (0.0-5.0); NEUTROPHILS # 3.4 10^3/uL (1.8-7.7); NEUTROPHILS % 62.1 % (36.0-66.0); PLATELET COUNT, AUTOMATED 173 10^3/uL (150-450); RED CELL DISTRIBUTION WIDTH 15.3 % (11.5-14.5); WHITE BLOOD COUNT 5.5 10^3/uL (4.0-10.0)
[2017-09-12 05:53] LABS: ANION GAP 7 MEQ/L (8-16); BLOOD UREA NITROGEN 22 MG/DL (7-18); CARBON DIOXIDE LEVEL 24 MEQ/L (21-32); CHLORIDE LEVEL 113 MEQ/L (98-107); CREATININE FOR GFR 1.09 MG/DL (0.70-1.30); GLOMERULAR FILTRATION RATE > 60.0 (>49); GLUCOSE, FASTING 137 MG/DL (80-110); POTASSIUM SERUM 4.4 MEQ/L (3.5-5.1); SODIUM LEVEL 144 MEQ/L (136-145)
[2017-09-12 06:01] LABS: INR 3.11
[2017-09-12] MEDS: DOCUSATE SODIUM 100 MG CAP PO (08:32)
[2017-09-12] MEDS: HumaLOG INSULIN (NovoLOG) PER UNIT SC (08:32)
[2017-09-12] MEDS: ASPIRIN 325 MG TAB PO (08:32)
[2017-09-12] MEDS: ISOSORBIDE MON. (IMDUR) 30 MG XR TAB PO (08:34)
[2017-09-12] MEDS: CARVedilol 12.5 MG TAB PO (08:34)
== END 2017-09-12 11:04 | disposition home health service (06) | DRG 674 ==
LOC: M ED 13:03 → M ED INP 17:25 → M PCU 19:28
PROC: 0JBP0ZZ Excision of Left Lower Leg Subcutaneous Tissue and Fascia, Open Approach (ICD-10-PCS; principal; 2017-09-11 09:32)
PROC: 0KBT0ZZ Excision of Left Lower Leg Muscle, Open Approach (ICD-10-PCS; 2017-09-11 09:32)
DX: N17.9 Acute kidney failure, unspecified (principal); T81.4XXA Infection following a procedure, initial encounter; M79.A22 Nontraumatic compartment syndrome of left lower extremity; R55 Syncope and collapse; E11.649 Type 2 diabetes mellitus with hypoglycemia without coma; I73.9 Peripheral vascular disease, unspecified; E03.9 Hypothyroidism, unspecified; J44.9 Chronic obstructive pulmonary disease, unspecified; I12.9 Hypertensive chronic kidney disease with stage 1 through stage 4 chronic kidney disease, or unspecified chronic kidney disease; I70.209 Unspecified atherosclerosis of native arteries of extremities, unspecified extremity; I25.2 Old myocardial infarction; E11.40 Type 2 diabetes mellitus with diabetic neuropathy, unspecified; E78.5 Hyperlipidemia, unspecified; Z87.891 Personal history of nicotine dependence; N18.3 Chronic kidney disease, stage 3 (moderate); D63.1 Anemia in chronic kidney disease; Z79.899 Other long term (current) drug therapy; Z79.82 Long term (current) use of aspirin; Z86.73 Personal history of transient ischemic attack (TIA), and cerebral infarction without residual deficits; Z79.4 Long term (current) use of insulin; B95.8 Unspecified staphylococcus as the cause of diseases classified elsewhere; Y83.8 Other surgical procedures as the cause of abnormal reaction of the patient, or of later complication, without mention of misadventure at the time of the procedure

== ENCOUNTER → 2017-09-13 | Outpatient (REF) | payer MEDICARE ==
[~2017-09-13] MED LIST changes: +BACT800T5 PO; +COUM2.5T17 PO; +INSUDET SC
[2017-09-13 15:23] LABS: INR 2.25
== END ==
LOC: M SHH 15:00
PROVIDERS: ATTEND Physical Medicine & Rehabilitation
DX: Z95.828 Presence of other vascular implants and grafts (principal)

== ENCOUNTER → 2017-09-18 | Outpatient (REF) | payer MEDICARE ==
[2017-09-18 14:23] LABS: INR 1.19
== END ==
LOC: M SHH 13:53
PROVIDERS: ATTEND Physical Medicine & Rehabilitation
DX: Z95.828 Presence of other vascular implants and grafts (principal); Z79.01 Long term (current) use of anticoagulants

== ENCOUNTER → 2017-09-19 | Outpatient (REF) | payer MEDICARE ==
[2017-09-19 13:09] LABS: MEAN CORPUSCULAR HGB CONC 32.1 g/dl (32.0-36.5); MEAN CORPUSCULAR VOLUME 90.5 fl (80.0-96.0); PLATELET COUNT, AUTOMATED 261 10^3/uL (150-450); RED CELL DISTRIBUTION WIDTH 14.7 % (11.5-14.5)
[2017-09-19 13:21] LABS: CALCIUM LEVEL 8.9 MG/DL (8.8-10.2); CREATININE FOR GFR 1.44 MG/DL (0.70-1.30); GLOMERULAR FILTRATION RATE 52.3 (>49)
[2017-09-19 13:29] LABS: POTASSIUM SERUM 5.4 MEQ/L (3.5-5.1)
== END ==
LOC: M SFHCADAM 10:54
PROVIDERS: ATTEND Family Medicine
DX: N18.3 Chronic kidney disease, stage 3 (moderate) (principal); D63.1 Anemia in chronic kidney disease

== ENCOUNTER → 2017-09-21 | Outpatient (REF) | payer MEDICARE ==
[2017-09-21 15:19] LABS: INR 1.07
== END ==
LOC: M SHH 14:57
DX: Z95.828 Presence of other vascular implants and grafts (principal)
CPT/HCPCS: 85610

== ENCOUNTER → 2017-09-25 | Outpatient (REF) | payer MEDICARE ==
[2017-09-25 19:13] LABS: BASO # 0.1 10^3/uL (0.0-0.2); BASO % 0.8 % (0.0-1.0); EOS # 0.3 10^3/uL (0.0-0.50); EOS % 2.8 % (0.0-3.0); HEMATOCRIT 42.2 % (42.0-52.0); HEMOGLOBIN 13.5 g/dl (14.0-18.0); IMMATURE GRANULOCYTE % 0.4 % (0-0); MEAN CORPUSCULAR VOLUME 90.6 fl (80.0-96.0); MONO # 0.5 10^3/uL (0.0-0.8); MONO % 5.4 % (0.0-5.0); NEUTROPHILS % 70.6 % (36.0-66.0); PLATELET COUNT, AUTOMATED 236 10^3/uL (150-450); RED BLOOD COUNT 4.66 10^6/uL (4.30-6.10); RED CELL DISTRIBUTION WIDTH 14.8 % (11.5-14.5)
[2017-09-25 19:29] LABS: INR 1.14; PROTHROMBIN TIME 14.8 SECONDS (12.4-14.5)
[2017-09-25 19:57] LABS: ESTIMATED AVERAGE GLUCOSE 166 MG/DL (60-110); HEMOGLOBIN A1c 7.4 %
[2017-09-25 20:01] LABS: TOTAL 25(OH) VITAMIN D 25.8 NG/ML (30.0-100.0)
[2017-09-25 20:14] LABS: ALBUMIN/GLOBULIN RATIO 1.05 (1.00-1.93); ALKALINE PHOSPHATASE 97 U/L (45-117); ALT/SGPT 19 U/L (12-78); ANION GAP 11 MEQ/L (8-16); AST/SGOT 10 U/L (7-37); BILIRUBIN,TOTAL 0.5 MG/DL (0.2-1.0); BLOOD UREA NITROGEN 25 MG/DL (7-18); CALCIUM LEVEL 8.3 MG/DL (8.8-10.2); CARBON DIOXIDE LEVEL 24 MEQ/L (21-32); CHLORIDE LEVEL 101 MEQ/L (98-107); CHOLESTEROL LEVEL 165 MG/DL (<200); GLOMERULAR FILTRATION RATE 49.8 (>49); HDL CHOLESTEROL 33 MG/DL (>40); LDL CHOLESTEROL 94.6 MG/DL (<100); NON-HDL-C 132 MG/DL; POTASSIUM SERUM 4.9 MEQ/L (3.5-5.1); SODIUM LEVEL 136 MEQ/L (136-145); TOTAL PROTEIN 7.8 GM/DL (6.4-8.2); TRIGLYCERIDES LEVEL 187 MG/DL (<150)
[2017-09-25 20:26] LABS: GLUCOSE, FASTING 443 MG/DL (80-110)
== END ==
LOC: M SFHCADAM 11:24
DX: E11.21 Type 2 diabetes mellitus with diabetic nephropathy (principal); D63.8 Anemia in other chronic diseases classified elsewhere; N18.3 Chronic kidney disease, stage 3 (moderate)
CPT/HCPCS: 84443

== ENCOUNTER → 2017-09-27 | Outpatient (REF) | payer MEDICARE ==
[2017-09-27 12:59] LABS: INR 1.11; PROTHROMBIN TIME 14.5 SECONDS (12.4-14.5)
== END ==
LOC: M SHH 12:07
DX: Z79.01 Long term (current) use of anticoagulants (principal)
CPT/HCPCS: 85610

== ENCOUNTER → 2017-10-01 | Outpatient (REF) | payer MEDICARE ==
[2017-10-01 14:09] LABS: INR 1.19; PROTHROMBIN TIME 15.3 SECONDS (12.4-14.5)
== END ==
LOC: M SHH 13:33
DX: Z79.01 Long term (current) use of anticoagulants (principal)
CPT/HCPCS: 85610

== ENCOUNTER → 2017-10-04 | Outpatient (REF) | payer MEDICARE ==
[2017-10-04 14:39] LABS: INR 1.07; PROTHROMBIN TIME 14.1 SECONDS (12.4-14.5)
== END ==
LOC: M SHH 13:40
DX: Z79.01 Long term (current) use of anticoagulants (principal)
CPT/HCPCS: 85610

== ENCOUNTER → 2017-10-08 | Outpatient (REF) | payer MEDICARE ==
[2017-10-08 14:37] LABS: PROTHROMBIN TIME 15.4 SECONDS (12.4-14.5)
== END ==
LOC: M SHH 14:11
DX: Z95.828 Presence of other vascular implants and grafts (principal)
CPT/HCPCS: 85610

== ENCOUNTER → 2017-10-11 | Outpatient (REF) | payer MEDICARE ==
[2017-10-11 15:30] LABS: INR 1.65
== END ==
LOC: M SHH 14:54
DX: Z95.828 Presence of other vascular implants and grafts (principal)
CPT/HCPCS: 85610

== ENCOUNTER → 2017-10-15 | Outpatient (REF) | payer MEDICARE ==
[2017-10-15 18:22] LABS: INR 1.34; PROTHROMBIN TIME 16.9 SECONDS (12.4-14.5)
== END ==
LOC: M SHH 16:46
DX: Z95.828 Presence of other vascular implants and grafts (principal)
CPT/HCPCS: 85610

== ENCOUNTER → 2017-10-18 | Outpatient (REF) | payer MEDICARE ==
[2017-10-18 15:38] LABS: INR 1.27; PROTHROMBIN TIME 16.2 SECONDS (12.4-14.5)
== END ==
LOC: M SHH 14:50
DX: Z95.828 Presence of other vascular implants and grafts (principal)
CPT/HCPCS: 85610

== ENCOUNTER → 2017-10-19 | Outpatient (REF) | payer MEDICARE ==
[2017-10-19 13:21] LABS: INR 1.19; PROTHROMBIN TIME 15.3 SECONDS (12.4-14.5)
== END ==
LOC: M SFHCADAM 11:24
DX: Z86.718 Personal history of other venous thrombosis and embolism (principal)
CPT/HCPCS: 85610

== ENCOUNTER → 2017-10-22 | Outpatient (CLI) | payer MEDICARE ==
[2017-10-22 12:55] LABS: INR 2.68; PROTHROMBIN TIME 29.7 SECONDS (12.4-14.5)
== END ==
LOC: M LAB 11:54
DX: I70.262 Atherosclerosis of native arteries of extremities with gangrene, left leg (principal); Z51.81 Encounter for therapeutic drug level monitoring; Z79.01 Long term (current) use of anticoagulants
CPT/HCPCS: 85610

== ENCOUNTER → 2017-10-25 | Outpatient (REF) | payer MEDICARE ==
[2017-10-25 13:15] LABS: INR 2.25; PROTHROMBIN TIME 25.7 SECONDS (12.4-14.5)
== END ==
LOC: M SHH 12:40
DX: Z79.01 Long term (current) use of anticoagulants (principal)
CPT/HCPCS: 85610

== ENCOUNTER 2017-10-29 13:08 | Observation (INO) | payer MEDICARE ==
[2017-10-29 17:34] LABS: BASO # 0.1 10^3/uL (0.0-0.2); BASO % 0.6 % (0.0-1.0); EOS # 0.1 10^3/uL (0.0-0.50); HEMATOCRIT 42.6 % (42.0-52.0); HEMOGLOBIN 14.5 g/dl (14.0-18.0); IMMATURE GRANULOCYTE % 0.3 % (0-0); LYMPH # 2.1 10^3/uL (1.5-4.5); MEAN CORPUSCULAR HEMOGLOBIN 28.5 pg (27.0-33.0); MEAN CORPUSCULAR VOLUME 83.9 fl (80.0-96.0); MONO # 0.8 10^3/uL (0.0-0.8); MONO % 7.3 % (0.0-5.0); NEUTROPHILS # 8.3 10^3/uL (1.8-7.7); NEUTROPHILS % 72.8 % (36.0-66.0); PLATELET COUNT, AUTOMATED 269 10^3/uL (150-450); RED BLOOD COUNT 5.08 10^6/uL (4.30-6.10); RED CELL DISTRIBUTION WIDTH 13.7 % (11.5-14.5); WHITE BLOOD COUNT 11.5 10^3/uL (4.0-10.0)
[2017-10-29 18:08] LABS: ANION GAP 12 MEQ/L (8-16); BLOOD UREA NITROGEN 26 MG/DL (7-18); CALCIUM LEVEL 8.5 MG/DL (8.8-10.2); CARBON DIOXIDE LEVEL 20 MEQ/L (21-32); CHLORIDE LEVEL 100 MEQ/L (98-107); CREATININE FOR GFR 1.43 MG/DL (0.70-1.30); GLOMERULAR FILTRATION RATE 52.7 (>49); SODIUM LEVEL 132 MEQ/L (136-145)
[2017-10-29 18:15] LABS: GLUCOSE, FASTING 513 MG/DL (70-100); POTASSIUM SERUM 5.6 MEQ/L (3.5-5.1)
[2017-10-29] MEDS: HumuLIN R (REGULAR) INSULIN (NovoLIN R) **100U/ML** PER UNIT IV ×2 (18:26)
[2017-10-29] MEDS: ACETAMINOPHEN 325 MG TAB PO ×2 (18:36)
[2017-10-29] MEDS ORDERED: BISACODYL 10 MG SUPP PR ×2 (19:15)
[2017-10-29] MEDS ORDERED: ONDANSETRON 4MG/2ML VIAL (J2405) IV ×2 (19:15)
[2017-10-29] MEDS ORDERED: MOM 30ML SUSPENSION UDC PO ×2 (19:15)
[2017-10-29] MEDS: PIPERACILLIN/TAZOBACTAM SOD 3.375 GM in APPROPRIATE DILUENT 1 EA IV (19:39)
[2017-10-29] MEDS: SENOKOT S TAB PO ×2 (21:00)
[2017-10-29] MEDS: DOCUSATE SODIUM 100 MG CAP PO ×2 (21:00)
[2017-10-30] MEDS: PIPERACILLIN/TAZOBACTAM SOD 3.375 GM in APPROPRIATE DILUENT 1 EA IV ×3 (02:03→13:01)
[2017-10-30 06:48] LABS: BASO # 0.1 10^3/uL (0.0-0.2); BASO % 0.7 % (0.0-1.0); EOS # 0.2 10^3/uL (0.0-0.50); HEMATOCRIT 38.3 % (42.0-52.0); HEMOGLOBIN 13.1 g/dl (14.0-18.0); IMMATURE GRANULOCYTE % 0.3 % (0-0); LYMPH # 2.1 10^3/uL (1.5-4.5); LYMPH % 23.5 % (24.0-44.0); MEAN CORPUSCULAR HEMOGLOBIN 28.6 pg (27.0-33.0); MEAN CORPUSCULAR HGB CONC 34.2 g/dl (32.0-36.5); MEAN CORPUSCULAR VOLUME 83.6 fl (80.0-96.0); MONO # 0.7 10^3/uL (0.0-0.8); MONO % 7.6 % (0.0-5.0); NEUTROPHILS # 5.8 10^3/uL (1.8-7.7); NEUTROPHILS % 65.9 % (36.0-66.0); PLATELET COUNT, AUTOMATED 226 10^3/uL (150-450); RED BLOOD COUNT 4.58 10^6/uL (4.30-6.10); WHITE BLOOD COUNT 8.8 10^3/uL (4.0-10.0)
[2017-10-30 07:15] LABS: ANION GAP 9 MEQ/L (8-16); BLOOD UREA NITROGEN 23 MG/DL (7-18); CALCIUM LEVEL 8.6 MG/DL (8.8-10.2); CARBON DIOXIDE LEVEL 24 MEQ/L (21-32); CHLORIDE LEVEL 104 MEQ/L (98-107); CREATININE FOR GFR 1.23 MG/DL (0.70-1.30); GLOMERULAR FILTRATION RATE > 60.0 (>49); GLUCOSE, FASTING 330 MG/DL (70-100); POTASSIUM SERUM 4.5 MEQ/L (3.5-5.1); SODIUM LEVEL 137 MEQ/L (136-145)
[2017-10-30] MEDS: DOCUSATE SODIUM 100 MG CAP PO ×2 (08:03)
[2017-10-30] MEDS: SENOKOT S TAB PO ×2 (08:04)
[2017-10-30] MEDS: ISOSORBIDE MON. (IMDUR) 30 MG XR TAB PO ×2 (09:00)
[2017-10-30] MEDS ORDERED: LACTIC ACID 12% LOTION 225 GM BTL TOP ×2 (09:15)
[2017-10-30] MEDS ORDERED: NITROGLYCERIN 0.4 MG SUBL TABLET SL ×2 (09:15)
[2017-10-30] MEDS ORDERED: ACETAMINOPHEN TAB 650MG DOSE (2X325MG) PO ×2 (09:15)
[2017-10-30 09:53] LABS: INR 1.74; PROTHROMBIN TIME 20.9 SECONDS (12.4-14.5)
[2017-10-30] MEDS: GABAPENTIN 300 MG CAP PO ×2 (11:18)
[2017-10-30] MEDS: MECLIZINE 25 MG TABLET PO ×2 (11:18)
[2017-10-30] MEDS: FAMOTIDINE 20 MG TAB PO ×2 (11:18)
[2017-10-30] MEDS: CARVedilol 12.5 MG TAB PO ×2 (11:18)
[2017-10-30] MEDS: SPIRONOLACTONE 25 MG TAB PO ×2 (11:18)
[2017-10-30] MEDS: LISINOPRIL 5 MG TAB PO ×2 (11:19)
[2017-10-30] MEDS: LEVOTHYROXINE 25MCG TABLET (0.025MG) PO ×2 (11:19)
[2017-10-30] MEDS: PREVNAR 13 VACCINE SYRINGE (CPT CODE:90670) IM ×2 (14:27)
[2017-10-30] MEDS ORDERED: WARFARIN SOD 7.5 MG TAB PO ×2 (17:00)
[2017-10-30] MEDS ORDERED: AMITRIPTYLINE 10 MG TAB PO ×2 (21:00)
[2017-10-30] MEDS ORDERED: LEVEMIR (INSULIN DETEMIR) 1 UNITS/0.01ML SC ×2 (21:00)
[2017-10-30] MEDS ORDERED: WARFARIN SOD 5 MG TAB PO ×2 (21:00)
[2017-10-30] MEDS ORDERED: ATORVASTATIN 20 MG TAB PO ×2 (21:00)
== END 2017-10-30 14:58 | disposition home health service (06) ==
LOC: M ED 13:08 → M ED INP 19:10
DX: L76.32 Postprocedural hematoma of skin and subcutaneous tissue following other procedure (principal); Y83.2 Surgical operation with anastomosis, bypass or graft as the cause of abnormal reaction of the patient, or of later complication, without mention of misadventure at the time of the procedure; R60.0 Localized edema; I70.202 Unspecified atherosclerosis of native arteries of extremities, left leg; I13.0 Hypertensive heart and chronic kidney disease with heart failure and stage 1 through stage 4 chronic kidney disease, or unspecified chronic kidney disease; I50.9 Heart failure, unspecified; E11.40 Type 2 diabetes mellitus with diabetic neuropathy, unspecified; I25.2 Old myocardial infarction; E78.5 Hyperlipidemia, unspecified; J44.9 Chronic obstructive pulmonary disease, unspecified; N18.3 Chronic kidney disease, stage 3 (moderate); E03.9 Hypothyroidism, unspecified; Z86.718 Personal history of other venous thrombosis and embolism
CPT/HCPCS: 10140

== ENCOUNTER → 2017-11-01 | Outpatient (REF) | payer MEDICARE ==
[2017-11-01 16:17] LABS: INR 1.75
== END ==
LOC: M SHH 15:43
DX: Z95.828 Presence of other vascular implants and grafts (principal)
CPT/HCPCS: 85610

== ENCOUNTER → 2017-11-09 | Outpatient (REF) | payer MEDICARE ==
[2017-11-09 17:00] LABS: PROTHROMBIN TIME 21.4 SECONDS (12.4-14.5)
== END ==
LOC: M SHH 16:21
DX: I82.409 Acute embolism and thrombosis of unspecified deep veins of unspecified lower extremity (principal)
CPT/HCPCS: 85610

== ENCOUNTER → 2017-11-15 | Outpatient (REF) | payer MEDICARE ==
[2017-11-15 15:43] LABS: INR 1.22; PROTHROMBIN TIME 15.6 SECONDS (12.4-14.5)
== END ==
LOC: M SHH 15:01
DX: I82.409 Acute embolism and thrombosis of unspecified deep veins of unspecified lower extremity (principal)
CPT/HCPCS: 85610

== ENCOUNTER → 2017-11-23 | Outpatient (REF) | payer MEDICARE ==
[2017-11-23 17:41] LABS: INR 1.07; PROTHROMBIN TIME 14.1 SECONDS (12.4-14.5)
== END ==
LOC: M SHH 16:26
DX: I82.409 Acute embolism and thrombosis of unspecified deep veins of unspecified lower extremity (principal)
CPT/HCPCS: 85610

== ENCOUNTER → 2017-11-27 | Outpatient (REF) | payer MEDICARE ==
[2017-11-27 20:43] LABS: ALBUMIN 3.3 GM/DL (3.2-5.2); ALBUMIN/GLOBULIN RATIO 0.85 (1.00-1.93); ALKALINE PHOSPHATASE 105 U/L (45-117); ALT/SGPT 15 U/L (12-78); ANION GAP 11 MEQ/L (8-16); AST/SGOT 9 U/L (7-37); BILIRUBIN,TOTAL 0.6 MG/DL (0.2-1.0); BLOOD UREA NITROGEN 50 MG/DL (7-18); C REACTIVE PROTEIN QUANTITATIV 2.56 MG/DL (0.00-0.30); CALCIUM LEVEL 9.6 MG/DL (8.8-10.2); CARBON DIOXIDE LEVEL 26 MEQ/L (21-32); CHLORIDE LEVEL 95 MEQ/L (98-107); CREATININE FOR GFR 1.39 MG/DL (0.70-1.30); GLOMERULAR FILTRATION RATE 54.4 (>49); SODIUM LEVEL 132 MEQ/L (136-145); TOTAL PROTEIN 7.2 GM/DL (6.4-8.2)
[2017-11-27 20:58] LABS: GLUCOSE, FASTING 650 MG/DL (70-100)
[2017-11-27 21:05] LABS: BASO # 0.1 10^3/uL (0.0-0.2); BASO % 0.9 % (0.0-1.0); EOS # 0.3 10^3/uL (0.0-0.50); EOS % 3.6 % (0.0-3.0); HEMATOCRIT 40.6 % (42.0-52.0); HEMOGLOBIN 13.6 g/dl (14.0-18.0); IMMATURE GRANULOCYTE % 0.6 % (0-3.0); LYMPH # 1.6 10^3/uL (1.5-4.5); LYMPH % 23.5 % (24.0-44.0); MEAN CORPUSCULAR HEMOGLOBIN 29.2 pg (27.0-33.0); MEAN CORPUSCULAR HGB CONC 33.5 g/dl (32.0-36.5); MEAN CORPUSCULAR VOLUME 87.1 fl (80.0-96.0); MONO # 0.5 10^3/uL (0.0-0.8); MONO % 7.1 % (0.0-5.0); NEUTROPHILS # 4.5 10^3/uL (1.8-7.7); NEUTROPHILS % 64.3 % (36.0-66.0); PLATELET COUNT, AUTOMATED 182 10^3/uL (150-450); RED BLOOD COUNT 4.66 10^6/uL (4.30-6.10); RED CELL DISTRIBUTION WIDTH 15.8 % (11.5-14.5); WHITE BLOOD COUNT 6.9 10^3/uL (4.0-10.0)
== END ==
LOC: M SFHCADAM 14:21
DX: R53.83 Other fatigue (principal); E11.21 Type 2 diabetes mellitus with diabetic nephropathy; I73.9 Peripheral vascular disease, unspecified
CPT/HCPCS: 80053

== ENCOUNTER 2017-11-28 14:25 | Inpatient (IN) | payer MEDICARE ==
[2017-11-28] MEDS: NS 1,000 ML IV ×2 (15:21→23:07)
[2017-11-28 15:29] LABS: BASO % 0.7 % (0.0-1.0); EOS # 0.2 10^3/uL (0.0-0.50); EOS % 2.6 % (0.0-3.0); HEMATOCRIT 37.4 % (42.0-52.0); HEMOGLOBIN 12.7 g/dl (14.0-18.0); IMMATURE GRANULOCYTE % 0.5 % (0-3.0); LYMPH # 1.5 10^3/uL (1.5-4.5); LYMPH % 26.5 % (24.0-44.0); MEAN CORPUSCULAR HEMOGLOBIN 29.1 pg (27.0-33.0); MEAN CORPUSCULAR VOLUME 85.6 fl (80.0-96.0); MONO # 0.5 10^3/uL (0.0-0.8); MONO % 7.9 % (0.0-5.0); NEUTROPHILS # 3.6 10^3/uL (1.8-7.7); NEUTROPHILS % 61.8 % (36.0-66.0); PLATELET COUNT, AUTOMATED 183 10^3/uL (150-450); RED BLOOD COUNT 4.37 10^6/uL (4.30-6.10); RED CELL DISTRIBUTION WIDTH 15.7 % (11.5-14.5); WHITE BLOOD COUNT 5.8 10^3/uL (4.0-10.0)
[2017-11-28] MEDS: INSULIN HUMAN REGULAR 100 UNITS in NS 99 ML IV (15:36)
[2017-11-28 15:53] LABS: ESTIMATED AVERAGE GLUCOSE 378 MG/DL (60-110); HEMOGLOBIN A1c 14.8 %
[2017-11-28 15:59] LABS: ALBUMIN 2.9 GM/DL (3.2-5.2); ALBUMIN/GLOBULIN RATIO 0.81 (1.00-1.93); ALKALINE PHOSPHATASE 102 U/L (45-117); ALT/SGPT 15 U/L (12-78); ANION GAP 8 MEQ/L (8-16); AST/SGOT 8 U/L (7-37); BILIRUBIN,TOTAL 0.5 MG/DL (0.2-1.0); BLOOD UREA NITROGEN 47 MG/DL (7-18); CALCIUM LEVEL 8.2 MG/DL (8.8-10.2); CARBON DIOXIDE LEVEL 24 MEQ/L (21-32); CHLORIDE LEVEL 92 MEQ/L (98-107); CREATININE FOR GFR 1.62 MG/DL (0.70-1.30); GLOMERULAR FILTRATION RATE 45.6 (>49); SODIUM LEVEL 124 MEQ/L (136-145); TOTAL PROTEIN 6.5 GM/DL (6.4-8.2)
[2017-11-28 16:22] LABS: GLUCOSE, FASTING 773 MG/DL (70-100)
[2017-11-28 16:23] LABS: POTASSIUM SERUM 6.8 MEQ/L (3.5-5.1)
[2017-11-28] MEDS: INSULIN IV RATE CHANGE DOCUMENTATION ML/HR XX ×3 (16:40→23:33)
[2017-11-28] MEDS ORDERED: NITROGLYCERIN 0.4 MG SUBL TABLET SL (16:45)
[2017-11-28] MEDS ORDERED: LACTIC ACID 12% LOTION 225 GM BTL TOP (16:45)
[2017-11-28] MEDS ORDERED: MECLIZINE 25 MG TABLET PO (16:45)
[2017-11-28] MEDS: PIPERACILLIN/TAZOBACTAM SOD 3.375 GM in APPROPRIATE DILUENT 1 EA IV ×2 (17:35→23:08)
[2017-11-28] MEDS: SOD POLYSTYRENE SULFONATE SUSP 15 GM/60 ML UD PO (17:35)
[2017-11-28 17:36] LABS: BEDSIDE GLUCOSE CONFIRMATION 654 MG/DL (LESS THAN 200)
[2017-11-28 17:44] LABS: ALBUMIN 2.8 GM/DL (3.2-5.2); ALBUMIN/GLOBULIN RATIO 0.85 (1.00-1.93); ALKALINE PHOSPHATASE 96 U/L (45-117); ALT/SGPT 17 U/L (12-78); ANION GAP 10 MEQ/L (8-16); AST/SGOT 10 U/L (7-37); BILIRUBIN,TOTAL 0.4 MG/DL (0.2-1.0); BLOOD UREA NITROGEN 47 MG/DL (7-18); CARBON DIOXIDE LEVEL 22 MEQ/L (21-32); CHLORIDE LEVEL 97 MEQ/L (98-107); CREATININE FOR GFR 1.42 MG/DL (0.70-1.30); GLOMERULAR FILTRATION RATE 53.1 (>49); SODIUM LEVEL 129 MEQ/L (136-145); TOTAL PROTEIN 6.1 GM/DL (6.4-8.2)
[2017-11-28 17:48] LABS: GLUCOSE, FASTING 654 MG/DL (70-100)
[2017-11-28 19:30] LABS: ALBUMIN 2.8 GM/DL (3.2-5.2); ALBUMIN/GLOBULIN RATIO 0.82 (1.00-1.93); ALKALINE PHOSPHATASE 96 U/L (45-117); ALT/SGPT 16 U/L (12-78); ANION GAP 10 MEQ/L (8-16); AST/SGOT 9 U/L (7-37); BILIRUBIN,TOTAL 0.4 MG/DL (0.2-1.0); BLOOD UREA NITROGEN 51 MG/DL (7-18); CALCIUM LEVEL 8.4 MG/DL (8.8-10.2); CARBON DIOXIDE LEVEL 22 MEQ/L (21-32); CHLORIDE LEVEL 99 MEQ/L (98-107); CREATININE FOR GFR 1.47 MG/DL (0.70-1.30); POTASSIUM SERUM 4.3 MEQ/L (3.5-5.1); SODIUM LEVEL 131 MEQ/L (136-145); TOTAL PROTEIN 6.2 GM/DL (6.4-8.2)
[2017-11-28 19:34] LABS: BEDSIDE GLUCOSE 477 MG/DL (80-115)
[2017-11-28 19:34] LABS: BEDSIDE GLUCOSE 503 MG/DL (80-115)
[2017-11-28 19:35] LABS: GLUCOSE, FASTING 461 MG/DL (70-100)
[2017-11-28] MEDS: CARVedilol 12.5 MG TAB PO (20:15)
[2017-11-28] MEDS: ATORVASTATIN 20 MG TAB PO (20:15)
[2017-11-28] MEDS: GABAPENTIN 300 MG CAP PO (20:16)
[2017-11-28] MEDS: FAMOTIDINE 20 MG TAB PO (20:16)
[2017-11-28] MEDS: MIRALAX *UNIT DOSE* 17GM PACKET PO (20:16)
[2017-11-28] MEDS: APIXABAN 5 MG TAB (ELIQUIS) PO (20:16)
[2017-11-28 20:34] LABS: BEDSIDE GLUCOSE 350 MG/DL (80-115)
[2017-11-28 21:32] LABS: BEDSIDE GLUCOSE 337 MG/DL (80-115)
[2017-11-28] MEDS ORDERED: fentaNYL 250 MCG/5 ML INJECTION (J3010) As Ordered (21:34)
[2017-11-28] MEDS ORDERED: MIDAZOLAM INJ 2 MG/2 ML VIAL (J2250) As Ordered (21:34)
[2017-11-28] MEDS ORDERED: ONDANSETRON 4MG/2ML VIAL (J2405) As Ordered (21:34)
[2017-11-28] MEDS: BUPIVACAINE HCL 0.5% 30 ML VIAL As Ordered (21:35)
[2017-11-28] MEDS: LIDOCAINE 1% SDV INJ 30 ML VIAL As Ordered (21:35)
[2017-11-28 22:19] LABS: HEMATOCRIT 34.5 % (42.0-52.0); HEMOGLOBIN 11.7 g/dl (14.0-18.0); MEAN CORPUSCULAR HEMOGLOBIN 28.7 pg (27.0-33.0); MEAN CORPUSCULAR HGB CONC 33.9 g/dl (32.0-36.5); MEAN CORPUSCULAR VOLUME 84.8 fl (80.0-96.0); PLATELET COUNT, AUTOMATED 164 10^3/uL (150-450); RED BLOOD COUNT 4.07 10^6/uL (4.30-6.10); RED CELL DISTRIBUTION WIDTH 15.3 % (11.5-14.5); WHITE BLOOD COUNT 6.5 10^3/uL (4.0-10.0)
[2017-11-28 22:40] LABS: ALBUMIN 2.7 GM/DL (3.2-5.2); ALBUMIN/GLOBULIN RATIO 0.73 (1.00-1.93); ALKALINE PHOSPHATASE 85 U/L (45-117); ALT/SGPT 17 U/L (12-78); ANION GAP 9 MEQ/L (8-16); AST/SGOT 10 U/L (7-37); BILIRUBIN,TOTAL 0.4 MG/DL (0.2-1.0); BLOOD UREA NITROGEN 50 MG/DL (7-18); CALCIUM LEVEL 8.3 MG/DL (8.8-10.2); CARBON DIOXIDE LEVEL 23 MEQ/L (21-32); CHLORIDE LEVEL 104 MEQ/L (98-107); CREATININE FOR GFR 1.35 MG/DL (0.70-1.30); GLOMERULAR FILTRATION RATE 56.3 (>49); GLUCOSE, FASTING 258 MG/DL (70-100); MAGNESIUM LEVEL 2.1 MG/DL (1.8-2.4); POTASSIUM SERUM 3.8 MEQ/L (3.5-5.1); SODIUM LEVEL 136 MEQ/L (136-145); TOTAL PROTEIN 6.4 GM/DL (6.4-8.2)
[2017-11-28 23:38] LABS: BEDSIDE GLUCOSE 176 MG/DL (80-115)
[2017-11-29] MEDS: INSULIN IV RATE CHANGE DOCUMENTATION ML/HR XX ×2 (01:30→06:53)
[2017-11-29 04:43] LABS: BEDSIDE GLUCOSE 84 MG/DL (80-115)
[2017-11-29 04:43] LABS: BEDSIDE GLUCOSE 116 MG/DL (80-115)
[2017-11-29 04:43] LABS: BEDSIDE GLUCOSE 74 MG/DL (80-115)
[2017-11-29 04:43] LABS: BEDSIDE GLUCOSE 117 MG/DL (80-115)
[2017-11-29 04:51] LABS: HEMATOCRIT 36.5 % (42.0-52.0); HEMOGLOBIN 12.3 g/dl (14.0-18.0); MEAN CORPUSCULAR HGB CONC 33.7 g/dl (32.0-36.5); MEAN CORPUSCULAR VOLUME 86.1 fl (80.0-96.0); PLATELET COUNT, AUTOMATED 159 10^3/uL (150-450); RED BLOOD COUNT 4.24 10^6/uL (4.30-6.10); RED CELL DISTRIBUTION WIDTH 15.6 % (11.5-14.5); WHITE BLOOD COUNT 6.6 10^3/uL (4.0-10.0)
[2017-11-29] MEDS: PIPERACILLIN/TAZOBACTAM SOD 3.375 GM in APPROPRIATE DILUENT 1 EA IV ×3 (05:11→17:05)
[2017-11-29] MEDS: LEVOTHYROXINE 25MCG TABLET (0.025MG) PO (05:11)
[2017-11-29 05:17] LABS: ANION GAP 10 MEQ/L (8-16); BLOOD UREA NITROGEN 43 MG/DL (7-18); CARBON DIOXIDE LEVEL 23 MEQ/L (21-32); CHLORIDE LEVEL 108 MEQ/L (98-107); CREATININE FOR GFR 1.17 MG/DL (0.70-1.30); GLOMERULAR FILTRATION RATE > 60.0 (>49); GLUCOSE, FASTING 90 MG/DL (70-100); POTASSIUM SERUM 3.9 MEQ/L (3.5-5.1); SODIUM LEVEL 141 MEQ/L (136-145)
[2017-11-29] MEDS: NS 1,000 ML IV ×2 (06:12→13:56)
[2017-11-29 07:23] LABS: BEDSIDE GLUCOSE 161 MG/DL (80-115)
[2017-11-29] MEDS: GABAPENTIN 300 MG CAP PO ×2 (08:17→20:06)
[2017-11-29] MEDS: APIXABAN 5 MG TAB (ELIQUIS) PO ×2 (08:17→20:06)
[2017-11-29] MEDS: ASPIRIN 325 MG TAB PO (08:17)
[2017-11-29] MEDS: ACETAMINOPHEN TAB 650MG DOSE (2X325MG) PO ×2 (08:18→19:40)
[2017-11-29] MEDS: CARVedilol 12.5 MG TAB PO ×2 (08:18→20:05)
[2017-11-29] MEDS: ISOSORBIDE MON. (IMDUR) 30 MG XR TAB PO (08:19)
[2017-11-29] MEDS: FAMOTIDINE 20 MG TAB PO ×2 (08:19→20:06)
[2017-11-29] MEDS ORDERED: DEXTROSE 50% 50 ML SYRINGE IV (09:15)
[2017-11-29] MEDS ORDERED: GLUCAGON FOR INJ 1 MG VIAL (J1610) SC (09:15)
[2017-11-29] MEDS ORDERED: GLUCOSE 4 GM CHEW TABLET PO (09:15)
[2017-11-29] MEDS: MIRALAX *UNIT DOSE* 17GM PACKET PO ×2 (09:36→20:06)
[2017-11-29] MEDS: LEVEMIR (INSULIN DETEMIR) 1 UNITS/0.01ML SC ×2 (09:36→20:04)
[2017-11-29 10:05] LABS: BEDSIDE GLUCOSE > 600 MG/DL (80-115)
[2017-11-29 10:05] LABS: BEDSIDE GLUCOSE > 600 MG/DL (80-115)
[2017-11-29 11:33] LABS: BEDSIDE GLUCOSE 198 MG/DL (80-115)
[2017-11-29 11:33] LABS: BEDSIDE GLUCOSE 205 MG/DL (80-115)
[2017-11-29 11:59] LABS: BEDSIDE GLUCOSE 510 MG/DL (80-115)
[2017-11-29] MEDS: HumaLOG INSULIN (NovoLOG) PER UNIT SC ×3 (12:16→20:04)
[2017-11-29 16:42] LABS: BEDSIDE GLUCOSE 463 MG/DL (80-115)
[2017-11-29 16:48] LABS: BEDSIDE GLUCOSE 394 MG/DL (80-115)
[2017-11-29 19:56] LABS: BEDSIDE GLUCOSE 410 MG/DL (80-115)
[2017-11-29] MEDS: ATORVASTATIN 20 MG TAB PO (20:05)
[2017-11-30 00:11] LABS: BEDSIDE GLUCOSE 376 MG/DL (80-115)
[2017-11-30] MEDS: PIPERACILLIN/TAZOBACTAM SOD 3.375 GM in APPROPRIATE DILUENT 1 EA IV ×4 (00:12→17:27)
[2017-11-30 02:02] LABS: BEDSIDE GLUCOSE 354 MG/DL (80-115)
[2017-11-30 04:41] LABS: HEMATOCRIT 32.5 % (42.0-52.0); HEMOGLOBIN 10.9 g/dl (14.0-18.0); MEAN CORPUSCULAR HEMOGLOBIN 28.7 pg (27.0-33.0); MEAN CORPUSCULAR HGB CONC 33.5 g/dl (32.0-36.5); MEAN CORPUSCULAR VOLUME 85.5 fl (80.0-96.0); PLATELET COUNT, AUTOMATED 154 10^3/uL (150-450); RED CELL DISTRIBUTION WIDTH 15.4 % (11.5-14.5); WHITE BLOOD COUNT 5.5 10^3/uL (4.0-10.0)
[2017-11-30 05:01] LABS: ANION GAP 8 MEQ/L (8-16); BLOOD UREA NITROGEN 29 MG/DL (7-18); CALCIUM LEVEL 7.8 MG/DL (8.8-10.2); CARBON DIOXIDE LEVEL 25 MEQ/L (21-32); CHLORIDE LEVEL 110 MEQ/L (98-107); GLOMERULAR FILTRATION RATE 49.8 (>49); GLUCOSE, FASTING 277 MG/DL (70-100); SODIUM LEVEL 143 MEQ/L (136-145)
[2017-11-30] MEDS: LEVOTHYROXINE 25MCG TABLET (0.025MG) PO (05:39)
[2017-11-30] MEDS: MIRALAX *UNIT DOSE* 17GM PACKET PO ×2 (08:08→20:49)
[2017-11-30] MEDS: HumaLOG INSULIN (NovoLOG) PER UNIT SC ×4 (08:08→20:47)
[2017-11-30] MEDS: LEVEMIR (INSULIN DETEMIR) 1 UNITS/0.01ML SC ×2 (08:09→20:48)
[2017-11-30] MEDS: APIXABAN 5 MG TAB (ELIQUIS) PO ×2 (08:09→20:46)
[2017-11-30] MEDS: FAMOTIDINE 20 MG TAB PO ×2 (08:09→20:46)
[2017-11-30] MEDS: ASPIRIN 325 MG TAB PO (08:09)
[2017-11-30] MEDS: ISOSORBIDE MON. (IMDUR) 30 MG XR TAB PO (08:12)
[2017-11-30] MEDS: CARVedilol 12.5 MG TAB PO ×2 (08:12→20:46)
[2017-11-30] MEDS: GABAPENTIN 300 MG CAP PO ×2 (08:12→20:46)
[2017-11-30 11:27] LABS: BEDSIDE GLUCOSE 399 MG/DL (80-115)
[2017-11-30] MEDS: NS 0.45% 1,000 ML IV ×2 (14:00→22:59)
[2017-11-30 15:52] LABS: AMMONIA 29 uMOL/L (<32)
[2017-11-30 16:01] LABS: FREE T4 1.21 NG/DL (0.76-1.46)
[2017-11-30 16:54] LABS: BEDSIDE GLUCOSE 275 MG/DL (80-115)
[2017-11-30 20:39] LABS: BEDSIDE GLUCOSE 314 MG/DL (80-115)
[2017-11-30] MEDS: ATORVASTATIN 20 MG TAB PO (20:46)
[2017-11-30] MEDS: CEFTRIAXONE SOD 1 GM in APPROPRIATE DILUENT 1 EA IV (20:48)
[2017-12-01 04:36] LABS: HEMATOCRIT 31.8 % (42.0-52.0); HEMOGLOBIN 10.7 g/dl (14.0-18.0); MEAN CORPUSCULAR HEMOGLOBIN 28.9 pg (27.0-33.0); MEAN CORPUSCULAR HGB CONC 33.6 g/dl (32.0-36.5); MEAN CORPUSCULAR VOLUME 85.9 fl (80.0-96.0); PLATELET COUNT, AUTOMATED 163 10^3/uL (150-450); RED CELL DISTRIBUTION WIDTH 15.2 % (11.5-14.5); WHITE BLOOD COUNT 5.1 10^3/uL (4.0-10.0)
[2017-12-01 04:55] LABS: ALBUMIN 2.3 GM/DL (3.2-5.2); ALBUMIN/GLOBULIN RATIO 0.64 (1.00-1.93); ALKALINE PHOSPHATASE 62 U/L (45-117); ALT/SGPT 15 U/L (12-78); ANION GAP 5 MEQ/L (8-16); AST/SGOT 9 U/L (7-37); BILIRUBIN,TOTAL 0.2 MG/DL (0.2-1.0); BLOOD UREA NITROGEN 18 MG/DL (7-18); CALCIUM LEVEL 8.2 MG/DL (8.8-10.2); CARBON DIOXIDE LEVEL 28 MEQ/L (21-32); CHLORIDE LEVEL 113 MEQ/L (98-107); GLOMERULAR FILTRATION RATE > 60.0 (>49); GLUCOSE, FASTING 100 MG/DL (70-100); POTASSIUM SERUM 3.7 MEQ/L (3.5-5.1); SODIUM LEVEL 146 MEQ/L (136-145); TOTAL PROTEIN 5.9 GM/DL (6.4-8.2)
[2017-12-01] MEDS: LEVOTHYROXINE 25MCG TABLET (0.025MG) PO (04:55)
[2017-12-01] MEDS: HumaLOG INSULIN (NovoLOG) PER UNIT SC ×4 (08:33→21:11)
[2017-12-01] MEDS: ASPIRIN 325 MG TAB PO (08:48)
[2017-12-01] MEDS: ISOSORBIDE MON. (IMDUR) 30 MG XR TAB PO (08:48)
[2017-12-01] MEDS: GABAPENTIN 300 MG CAP PO ×2 (08:48→21:10)
[2017-12-01] MEDS: FAMOTIDINE 20 MG TAB PO ×2 (08:49→21:10)
[2017-12-01] MEDS: APIXABAN 5 MG TAB (ELIQUIS) PO ×2 (08:49→21:09)
[2017-12-01] MEDS: LEVEMIR (INSULIN DETEMIR) 1 UNITS/0.01ML SC ×2 (08:49→21:00)
[2017-12-01] MEDS: NS 0.45% 1,000 ML IV ×2 (08:49→18:22)
[2017-12-01] MEDS: MIRALAX *UNIT DOSE* 17GM PACKET PO ×2 (08:49→21:09)
[2017-12-01] MEDS: CARVedilol 12.5 MG TAB PO ×2 (08:49→21:09)
[2017-12-01 12:00] LABS: BEDSIDE GLUCOSE 297 MG/DL (80-115)
[2017-12-01 16:43] LABS: BEDSIDE GLUCOSE 279 MG/DL (80-115)
[2017-12-01 21:05] LABS: BEDSIDE GLUCOSE 343 MG/DL (80-115)
[2017-12-01] MEDS: ATORVASTATIN 20 MG TAB PO (21:09)
[2017-12-01] MEDS: CEFTRIAXONE SOD 1 GM in APPROPRIATE DILUENT 1 EA IV (21:11)
[2017-12-02] MEDS: ACETAMINOPHEN TAB 650MG DOSE (2X325MG) PO (03:02)
[2017-12-02] MEDS: NS 0.45% 1,000 ML IV ×2 (03:15→04:50)
[2017-12-02 04:39] LABS: HEMATOCRIT 33.5 % (42.0-52.0); HEMOGLOBIN 10.9 g/dl (14.0-18.0); MEAN CORPUSCULAR HEMOGLOBIN 28.9 pg (27.0-33.0); MEAN CORPUSCULAR HGB CONC 32.5 g/dl (32.0-36.5); MEAN CORPUSCULAR VOLUME 88.9 fl (80.0-96.0); PLATELET COUNT, AUTOMATED 182 10^3/uL (150-450); RED BLOOD COUNT 3.77 10^6/uL (4.30-6.10); RED CELL DISTRIBUTION WIDTH 15.1 % (11.5-14.5); WHITE BLOOD COUNT 5.8 10^3/uL (4.0-10.0)
[2017-12-02] MEDS: LEVOTHYROXINE 25MCG TABLET (0.025MG) PO (04:51)
[2017-12-02 04:54] LABS: ANION GAP 7 MEQ/L (8-16); BLOOD UREA NITROGEN 14 MG/DL (7-18); CALCIUM LEVEL 7.8 MG/DL (8.8-10.2); CARBON DIOXIDE LEVEL 25 MEQ/L (21-32); CHLORIDE LEVEL 109 MEQ/L (98-107); CREATININE FOR GFR 1.03 MG/DL (0.70-1.30); GLOMERULAR FILTRATION RATE > 60.0 (>49); GLUCOSE, FASTING 288 MG/DL (70-100); POTASSIUM SERUM 4.5 MEQ/L (3.5-5.1); SODIUM LEVEL 141 MEQ/L (136-145)
[2017-12-02] MEDS: D5W/0.45% SODIUM CHLORIDE 1,000 ML IV (07:38)
[2017-12-02] MEDS: ASPIRIN 325 MG TAB PO (08:25)
[2017-12-02] MEDS: HumaLOG INSULIN (NovoLOG) PER UNIT SC ×4 (08:25→20:32)
[2017-12-02] MEDS: MIRALAX *UNIT DOSE* 17GM PACKET PO ×3 (08:25→20:32)
[2017-12-02] MEDS: FAMOTIDINE 20 MG TAB PO ×2 (08:25→20:36)
[2017-12-02] MEDS: APIXABAN 5 MG TAB (ELIQUIS) PO ×2 (08:25→20:36)
[2017-12-02] MEDS: ISOSORBIDE MON. (IMDUR) 30 MG XR TAB PO (08:25)
[2017-12-02] MEDS: LEVEMIR (INSULIN DETEMIR) 1 UNITS/0.01ML SC ×2 (08:25→20:38)
[2017-12-02] MEDS: GABAPENTIN 300 MG CAP PO ×2 (08:25→20:36)
[2017-12-02] MEDS: CARVedilol 12.5 MG TAB PO ×2 (08:26→20:37)
[2017-12-02 12:15] LABS: BEDSIDE GLUCOSE 304 MG/DL (80-115)
[2017-12-02 19:52] LABS: BEDSIDE GLUCOSE 193 MG/DL (80-115)
[2017-12-02] MEDS: ATORVASTATIN 20 MG TAB PO (20:36)
[2017-12-02] MEDS: CEFTRIAXONE SOD 1 GM in APPROPRIATE DILUENT 1 EA IV (20:39)
[2017-12-02 20:42] LABS: BEDSIDE GLUCOSE 223 MG/DL (80-115)
[2017-12-03] MEDS: ACETAMINOPHEN TAB 650MG DOSE (2X325MG) PO (01:50)
[2017-12-03] MEDS: LEVOTHYROXINE 25MCG TABLET (0.025MG) PO (05:30)
[2017-12-03 05:58] LABS: HEMATOCRIT 32.5 % (42.0-52.0); HEMOGLOBIN 10.8 g/dl (14.0-18.0); MEAN CORPUSCULAR HEMOGLOBIN 29.3 pg (27.0-33.0); MEAN CORPUSCULAR HGB CONC 33.2 g/dl (32.0-36.5); MEAN CORPUSCULAR VOLUME 88.3 fl (80.0-96.0); PLATELET COUNT, AUTOMATED 192 10^3/uL (150-450); RED BLOOD COUNT 3.68 10^6/uL (4.30-6.10); RED CELL DISTRIBUTION WIDTH 15.3 % (11.5-14.5); WHITE BLOOD COUNT 5.8 10^3/uL (4.0-10.0)
[2017-12-03 06:28] LABS: ANION GAP 6 MEQ/L (8-16); BLOOD UREA NITROGEN 15 MG/DL (7-18); CALCIUM LEVEL 8.4 MG/DL (8.8-10.2); CARBON DIOXIDE LEVEL 28 MEQ/L (21-32); CHLORIDE LEVEL 110 MEQ/L (98-107); CREATININE FOR GFR 1.03 MG/DL (0.70-1.30); GLOMERULAR FILTRATION RATE > 60.0 (>49); GLUCOSE, FASTING 238 MG/DL (70-100); POTASSIUM SERUM 4.2 MEQ/L (3.5-5.1); SODIUM LEVEL 144 MEQ/L (136-145)
[2017-12-03] MEDS: ASPIRIN 325 MG TAB PO (08:10)
[2017-12-03] MEDS: FAMOTIDINE 20 MG TAB PO ×2 (08:10→20:19)
[2017-12-03] MEDS: MIRALAX *UNIT DOSE* 17GM PACKET PO ×3 (08:10→20:19)
[2017-12-03] MEDS: HumaLOG INSULIN (NovoLOG) PER UNIT SC ×4 (08:10→20:09)
[2017-12-03] MEDS: LEVEMIR (INSULIN DETEMIR) 1 UNITS/0.01ML SC ×2 (08:10→20:19)
[2017-12-03] MEDS: APIXABAN 5 MG TAB (ELIQUIS) PO ×2 (08:10→20:19)
[2017-12-03] MEDS: GABAPENTIN 300 MG CAP PO ×2 (08:10→20:19)
[2017-12-03] MEDS: ISOSORBIDE MON. (IMDUR) 30 MG XR TAB PO (08:11)
[2017-12-03] MEDS: CARVedilol 12.5 MG TAB PO ×2 (08:11→20:20)
[2017-12-03 10:21] LABS: BEDSIDE GLUCOSE 275 MG/DL (80-115)
[2017-12-03] MEDS: LevoFLOXacin 500 MG TABLET PO (10:37)
[2017-12-03 12:07] LABS: BEDSIDE GLUCOSE 284 MG/DL (80-115)
[2017-12-03 17:22] LABS: BEDSIDE GLUCOSE 176 MG/DL (80-115)
[2017-12-03 19:56] LABS: BEDSIDE GLUCOSE 240 MG/DL (80-115)
[2017-12-03] MEDS: ATORVASTATIN 20 MG TAB PO (20:19)
[2017-12-04] MEDS: LevoFLOXacin 500 MG TABLET PO (05:33)
[2017-12-04] MEDS: LEVOTHYROXINE 25MCG TABLET (0.025MG) PO (05:33)
[2017-12-04 05:37] LABS: HEMATOCRIT 33.3 % (42.0-52.0); HEMOGLOBIN 10.8 g/dl (14.0-18.0); MEAN CORPUSCULAR HEMOGLOBIN 28.3 pg (27.0-33.0); MEAN CORPUSCULAR HGB CONC 32.4 g/dl (32.0-36.5); MEAN CORPUSCULAR VOLUME 87.4 fl (80.0-96.0); PLATELET COUNT, AUTOMATED 220 10^3/uL (150-450); RED BLOOD COUNT 3.81 10^6/uL (4.30-6.10); RED CELL DISTRIBUTION WIDTH 14.9 % (11.5-14.5); WHITE BLOOD COUNT 6.9 10^3/uL (4.0-10.0)
[2017-12-04 06:03] LABS: ANION GAP 6 MEQ/L (8-16); BLOOD UREA NITROGEN 14 MG/DL (7-18); CALCIUM LEVEL 8.6 MG/DL (8.8-10.2); CARBON DIOXIDE LEVEL 29 MEQ/L (21-32); CHLORIDE LEVEL 109 MEQ/L (98-107); CREATININE FOR GFR 1.04 MG/DL (0.70-1.30); GLOMERULAR FILTRATION RATE > 60.0 (>49); GLUCOSE, FASTING 106 MG/DL (70-100); SODIUM LEVEL 144 MEQ/L (136-145)
[2017-12-04] MEDS: ISOSORBIDE MON. (IMDUR) 30 MG XR TAB PO (08:03)
[2017-12-04] MEDS: LEVEMIR (INSULIN DETEMIR) 1 UNITS/0.01ML SC ×2 (08:03→20:11)
[2017-12-04] MEDS: HumaLOG INSULIN (NovoLOG) PER UNIT SC ×4 (08:03→20:13)
[2017-12-04] MEDS: GABAPENTIN 300 MG CAP PO ×2 (08:04→20:11)
[2017-12-04] MEDS: FAMOTIDINE 20 MG TAB PO ×2 (08:04→20:12)
[2017-12-04] MEDS: APIXABAN 5 MG TAB (ELIQUIS) PO ×2 (08:04→20:12)
[2017-12-04] MEDS: CARVedilol 12.5 MG TAB PO ×2 (08:04→20:12)
[2017-12-04] MEDS: ASPIRIN 325 MG TAB PO (08:04)
[2017-12-04] MEDS: MIRALAX *UNIT DOSE* 17GM PACKET PO ×2 (08:04→20:12)
[2017-12-04 12:16] LABS: BEDSIDE GLUCOSE 207 MG/DL (80-115)
[2017-12-04 17:03] LABS: BEDSIDE GLUCOSE 417 MG/DL (80-115)
[2017-12-04] MEDS: ATORVASTATIN 20 MG TAB PO (20:11)
[2017-12-04 20:14] LABS: BEDSIDE GLUCOSE 372 MG/DL (80-115)
[2017-12-05] MEDS: LEVOTHYROXINE 25MCG TABLET (0.025MG) PO (05:32)
[2017-12-05] MEDS: LevoFLOXacin 500 MG TABLET PO (05:32)
[2017-12-05 06:38] LABS: HEMOGLOBIN 10.7 g/dl (14.0-18.0); MEAN CORPUSCULAR HEMOGLOBIN 28.8 pg (27.0-33.0); MEAN CORPUSCULAR HGB CONC 32.4 g/dl (32.0-36.5); MEAN CORPUSCULAR VOLUME 88.9 fl (80.0-96.0); PLATELET COUNT, AUTOMATED 220 10^3/uL (150-450); RED BLOOD COUNT 3.71 10^6/uL (4.30-6.10); WHITE BLOOD COUNT 6.6 10^3/uL (4.0-10.0)
[2017-12-05 06:55] LABS: ANION GAP 6 MEQ/L (8-16); BLOOD UREA NITROGEN 18 MG/DL (7-18); CALCIUM LEVEL 8.3 MG/DL (8.8-10.2); CARBON DIOXIDE LEVEL 30 MEQ/L (21-32); CHLORIDE LEVEL 109 MEQ/L (98-107); CREATININE FOR GFR 1.22 MG/DL (0.70-1.30); GLOMERULAR FILTRATION RATE > 60.0 (>49); GLUCOSE, FASTING 131 MG/DL (70-100); POTASSIUM SERUM 4.4 MEQ/L (3.5-5.1); SODIUM LEVEL 145 MEQ/L (136-145)
[2017-12-05] MEDS: FAMOTIDINE 20 MG TAB PO (08:41)
[2017-12-05] MEDS: GABAPENTIN 300 MG CAP PO (08:41)
[2017-12-05] MEDS: APIXABAN 5 MG TAB (ELIQUIS) PO (08:41)
[2017-12-05] MEDS: ASPIRIN 325 MG TAB PO (08:41)
[2017-12-05] MEDS: MIRALAX *UNIT DOSE* 17GM PACKET PO (08:42)
[2017-12-05] MEDS: HumaLOG INSULIN (NovoLOG) PER UNIT SC ×2 (08:42→13:16)
[2017-12-05] MEDS: LEVEMIR (INSULIN DETEMIR) 1 UNITS/0.01ML SC (08:45)
[2017-12-05] MEDS: ISOSORBIDE MON. (IMDUR) 30 MG XR TAB PO (08:45)
[2017-12-05] MEDS: CARVedilol 12.5 MG TAB PO (08:45)
[2017-12-05 11:38] LABS: BEDSIDE GLUCOSE 108 MG/DL (80-115)
== END 2017-12-05 15:58 | disposition home health service (06) | DRG 982 ==
LOC: M MSPAV 12-02 13:40 → M ICU 14:25
PROC: 0KBT0ZZ Excision of Left Lower Leg Muscle, Open Approach (ICD-10-PCS; principal; 2017-11-28 18:00)
DX: E11.65 Type 2 diabetes mellitus with hyperglycemia (principal); L02.416 Cutaneous abscess of left lower limb; N17.9 Acute kidney failure, unspecified; E11.21 Type 2 diabetes mellitus with diabetic nephropathy; E11.51 Type 2 diabetes mellitus with diabetic peripheral angiopathy without gangrene; N18.3 Chronic kidney disease, stage 3 (moderate); E78.5 Hyperlipidemia, unspecified; E03.9 Hypothyroidism, unspecified; I73.9 Peripheral vascular disease, unspecified; Z86.73 Personal history of transient ischemic attack (TIA), and cerebral infarction without residual deficits; Z79.82 Long term (current) use of aspirin; Z79.899 Other long term (current) drug therapy; I25.10 Atherosclerotic heart disease of native coronary artery without angina pectoris; D63.8 Anemia in other chronic diseases classified elsewhere; E86.0 Dehydration

== ENCOUNTER → 2017-12-13 | Outpatient (REF) | payer MEDICARE ==
[2017-12-13 20:09] LABS: BASO # 0.1 10^3/uL (0.0-0.2); BASO % 1.2 % (0.0-1.0); EOS # 0.3 10^3/uL (0.0-0.50); EOS % 3.1 % (0.0-3.0); HEMATOCRIT 40.9 % (42.0-52.0); IMMATURE GRANULOCYTE % 0.8 % (0-3.0); LYMPH # 2.7 10^3/uL (1.5-4.5); LYMPH % 27.4 % (24.0-44.0); MEAN CORPUSCULAR HEMOGLOBIN 28.2 pg (27.0-33.0); MEAN CORPUSCULAR HGB CONC 31.8 g/dl (32.0-36.5); MEAN CORPUSCULAR VOLUME 88.7 fl (80.0-96.0); MONO # 0.6 10^3/uL (0.0-0.8); NEUTROPHILS # 6.1 10^3/uL (1.8-7.7); NEUTROPHILS % 61.5 % (36.0-66.0); PLATELET COUNT, AUTOMATED 284 10^3/uL (150-450); RED BLOOD COUNT 4.61 10^6/uL (4.30-6.10); RED CELL DISTRIBUTION WIDTH 15.4 % (11.5-14.5); WHITE BLOOD COUNT 9.9 10^3/uL (4.0-10.0)
[2017-12-13 20:17] LABS: ALBUMIN 3.5 GM/DL (3.2-5.2); ALKALINE PHOSPHATASE 90 U/L (45-117); ALT/SGPT 19 U/L (12-78); ANION GAP 10 MEQ/L (8-16); AST/SGOT 8 U/L (7-37); BILIRUBIN,TOTAL 0.5 MG/DL (0.2-1.0); BLOOD UREA NITROGEN 43 MG/DL (7-18); C REACTIVE PROTEIN QUANTITATIV < 0.30 MG/DL (0.00-0.30); CALCIUM LEVEL 8.6 MG/DL (8.8-10.2); CARBON DIOXIDE LEVEL 24 MEQ/L (21-32); CHLORIDE LEVEL 102 MEQ/L (98-107); CREATININE FOR GFR 1.97 MG/DL (0.70-1.30); GLOMERULAR FILTRATION RATE 36.4 (>49); GLUCOSE, FASTING 292 MG/DL (70-100); POTASSIUM SERUM 4.9 MEQ/L (3.5-5.1); SODIUM LEVEL 136 MEQ/L (136-145); TOTAL PROTEIN 7.4 GM/DL (6.4-8.2)
== END ==
LOC: M SFHCADAM 13:53
DX: R73.9 Hyperglycemia, unspecified (principal)
CPT/HCPCS: 80053

== ENCOUNTER → 2017-12-20 | Outpatient (REF) | payer MEDICARE ==
[2017-12-20 15:35] LABS: ALBUMIN 3.5 GM/DL (3.2-5.2); ANION GAP 5 MEQ/L (8-16); BLOOD UREA NITROGEN 33 MG/DL (7-18); CARBON DIOXIDE LEVEL 26 MEQ/L (21-32); CHLORIDE LEVEL 113 MEQ/L (98-107); CREATININE FOR GFR 1.02 MG/DL (0.70-1.30); GLOMERULAR FILTRATION RATE > 60.0 (>49); GLUCOSE, FASTING 77 MG/DL (70-100); PHOSPHORUS LEVEL 4.6 MG/DL (2.5-4.9); POTASSIUM SERUM 4.2 MEQ/L (3.5-5.1); SODIUM LEVEL 144 MEQ/L (136-145)
== END ==
LOC: M SFHCADAM 15:01
DX: N28.9 Disorder of kidney and ureter, unspecified (principal)
CPT/HCPCS: 80069

== ENCOUNTER → 2018-02-21 | Outpatient (CLI) | payer MEDICARE | LOC: M ADAMS 13:42 | DX: M79.672 Pain in left foot (principal); Z98.890 Other specified postprocedural states; M77.32 Calcaneal spur, left foot | CPT/HCPCS: 73630 ==

== ENCOUNTER → 2018-02-21 | Outpatient (REF) | payer MEDICARE ==
[2018-02-21 20:09] LABS: BASO # 0.1 10^3/uL (0.0-0.2); BASO % 0.9 % (0.0-1.0); EOS # 0.2 10^3/uL (0.0-0.50); EOS % 2.4 % (0.0-3.0); HEMATOCRIT 44.7 % (42.0-52.0); HEMOGLOBIN 14.9 g/dl (13.5-17.5); IMMATURE GRANULOCYTE % 0.4 % (0-3.0); LYMPH # 1.7 10^3/uL (1.5-4.5); LYMPH % 20.5 % (24.0-44.0); MEAN CORPUSCULAR HEMOGLOBIN 28.9 pg (27.0-33.0); MEAN CORPUSCULAR HGB CONC 33.3 g/dl (32.0-36.5); MEAN CORPUSCULAR VOLUME 86.8 fl (80.0-96.0); MONO # 0.4 10^3/uL (0.0-0.8); MONO % 5.5 % (0.0-5.0); NEUTROPHILS # 5.7 10^3/uL (1.8-7.7); NEUTROPHILS % 70.3 % (36.0-66.0); PLATELET COUNT, AUTOMATED 185 10^3/uL (150-450); RED BLOOD COUNT 5.15 10^6/uL (4.30-6.10); RED CELL DISTRIBUTION WIDTH 13.6 % (11.5-14.5); WHITE BLOOD COUNT 8.1 10^3/uL (4.0-10.0)
[2018-02-21 20:24] LABS: ESTIMATED AVERAGE GLUCOSE 255 MG/DL (60-110); HEMOGLOBIN A1c 10.5 %
[2018-02-21 20:26] LABS: ALBUMIN 3.8 GM/DL (3.2-5.2); ALBUMIN/GLOBULIN RATIO 0.97 (1.00-1.93); ALKALINE PHOSPHATASE 93 U/L (45-117); ALT/SGPT 16 U/L (12-78); ANION GAP 11 MEQ/L (8-16); AST/SGOT 6 U/L (7-37); BILIRUBIN,TOTAL 0.7 MG/DL (0.2-1.0); BLOOD UREA NITROGEN 33 MG/DL (7-18); CALCIUM LEVEL 9.1 MG/DL (8.8-10.2); CARBON DIOXIDE LEVEL 23 MEQ/L (21-32); CHLORIDE LEVEL 104 MEQ/L (98-107); CHOLESTEROL LEVEL 227 MG/DL (<200); CHOLESTEROL RISK RATIO 6.878 (<5); CREATININE FOR GFR 1.65 MG/DL (0.70-1.30); GLOMERULAR FILTRATION RATE 44.7 (>49); HDL CHOLESTEROL 33 MG/DL (>40); NON-HDL-C 194 MG/DL; POTASSIUM SERUM 5.1 MEQ/L (3.5-5.1); SODIUM LEVEL 138 MEQ/L (136-145); TOTAL PROTEIN 7.7 GM/DL (6.4-8.2); TRIGLYCERIDES LEVEL 240 MG/DL (<150); URIC ACID 5.6 MG/DL (3.5-7.2)
[2018-02-21 20:33] LABS: ERYTHROCYTE SEDIMENTATION RATE 11 mm/hr (0-20)
[2018-02-21 20:52] LABS: GLUCOSE, FASTING 595 MG/DL (70-100)
== END ==
LOC: M SFHCADAM 13:29
DX: E11.21 Type 2 diabetes mellitus with diabetic nephropathy (principal); N18.3 Chronic kidney disease, stage 3 (moderate); M79.672 Pain in left foot
CPT/HCPCS: 84550

== ENCOUNTER 2018-02-22 19:31 | Inpatient (IN) | payer MEDICARE ==
[2018-02-22] MEDS: NS 1,000 ML IV ×2 (20:35→22:44)
[2018-02-22 20:40] LABS: BASO # 0.1 10^3/uL (0.0-0.2); BASO % 0.7 % (0.0-1.0); EOS # 0.1 10^3/uL (0.0-0.50); EOS % 1.2 % (0.0-3.0); HEMOGLOBIN 13.9 g/dl (13.5-17.5); IMMATURE GRANULOCYTE % 0.5 % (0-3.0); LYMPH # 1.5 10^3/uL (1.5-4.5); LYMPH % 14.9 % (24.0-44.0); MEAN CORPUSCULAR HEMOGLOBIN 29.1 pg (27.0-33.0); MEAN CORPUSCULAR HGB CONC 34.8 g/dl (32.0-36.5); MEAN CORPUSCULAR VOLUME 83.7 fl (80.0-96.0); MONO # 0.6 10^3/uL (0.0-0.8); MONO % 5.9 % (0.0-5.0); NEUTROPHILS # 7.7 10^3/uL (1.8-7.7); NEUTROPHILS % 76.8 % (36.0-66.0); PLATELET COUNT, AUTOMATED 197 10^3/uL (150-450); RED BLOOD COUNT 4.78 10^6/uL (4.30-6.10); RED CELL DISTRIBUTION WIDTH 13.5 % (11.5-14.5)
[2018-02-22 20:41] LABS: VENOUS BASE EXCESS -9.1 (-2.0-2.0); VENOUS HCO3 17.5 MEQ/L (23.0-27.0); VENOUS O2 SATURATION 59.9 % (60.0-80.0); VENOUS PARTIAL PRESSURE CO2 40.2 mmHg (38.0-50.0); VENOUS PARTIAL PRESSURE O2 33.8 mmHg (30.0-50.0); VENOUS PH 7.256 UNITS (7.330-7.430); VENOUS STANDARD HCO3 16.5 MEQ/L; VENOUS TOTAL CO2 18.7 MEQ/L (24.0-28.0)
[2018-02-22 21:02] LABS: OSMOLALITY SERUM 314 MOSM/KG (280-301)
[2018-02-22 21:15] LABS: ANION GAP 9 MEQ/L (8-16); BLOOD UREA NITROGEN 41 MG/DL (7-18); C REACTIVE PROTEIN QUANTITATIV 0.46 MG/DL (0.00-0.30); CALCIUM LEVEL 8.5 MG/DL (8.8-10.2); CARBON DIOXIDE LEVEL 20 MEQ/L (21-32); CHLORIDE LEVEL 104 MEQ/L (98-107); GLOMERULAR FILTRATION RATE 24.3 (>49); POTASSIUM SERUM 4.9 MEQ/L (3.5-5.1); SODIUM LEVEL 133 MEQ/L (136-145)
[2018-02-22 21:22] LABS: GLUCOSE, FASTING 528 MG/DL (70-100)
[2018-02-22 21:42] LABS: ABG BASE EXCESS -9.4 (-2.0-2.0); ABG HCO3 15.1 MEQ/L (22.0-26.0); ABG O2 SATURATION 96.3 % (95.0-99.0); ABG PARTIAL PRESSURE O2 88.8 mmHg (75.0-100.0); ABG TOTAL CO2 15.9 MEQ/L (23.0-31.0); ABG pH (ARTERIAL) 7.333 UNITS (7.350-7.450)
[2018-02-22] MEDS: HumaLOG INSULIN (NovoLOG) PER UNIT SC (22:10)
[2018-02-22] MEDS ORDERED: ONDANSETRON 4 MG ORAL DISINTEGRATING TAB (Q0162 PER 1MG) PO (22:30)
[2018-02-22] MEDS ORDERED: MORPHINE 10 MG/ML 1ML VIAL (J2270) IM (22:30)
[2018-02-22] MEDS: HumuLIN R (REGULAR) INSULIN (NovoLIN R) **100U/ML** PER UNIT IV (22:37)
[2018-02-22 23:08] LABS: LACTIC ACID SEPSIS PROTOCOL 1.2 MMOL/L (0.4-2.0)
[2018-02-22 23:45] LABS: BEDSIDE GLUCOSE 318 MG/DL (80-115)
[2018-02-23] MEDS ORDERED: ACETAMINOPHEN TAB 650MG DOSE (2X325MG) PO (00:15)
[2018-02-23] MEDS ORDERED: GLUCAGON FOR INJ 1 MG VIAL (J1610) SC (00:30)
[2018-02-23] MEDS ORDERED: GLUCOSE 4 GM CHEW TABLET PO (00:30)
[2018-02-23] MEDS ORDERED: DEXTROSE 50% 50 ML SYRINGE IV (00:30)
[2018-02-23] MEDS: predniSONE 10 MG TAB PO (02:25)
[2018-02-23] MEDS: LEVEMIR (INSULIN DETEMIR) 1 UNITS/0.01ML SC ×3 (02:25→20:05)
[2018-02-23] MEDS: NS 1,000 ML IV ×3 (02:26→22:45)
[2018-02-23] MEDS: LEVOTHYROXINE 25MCG TABLET (0.025MG) PO (05:39)
[2018-02-23 06:01] LABS: BASO # 0.1 10^3/uL (0.0-0.2); BASO % 0.6 % (0.0-1.0); EOS # 0.2 10^3/uL (0.0-0.50); EOS % 2.1 % (0.0-3.0); HEMATOCRIT 37.5 % (42.0-52.0); HEMOGLOBIN 12.9 g/dl (13.5-17.5); IMMATURE GRANULOCYTE % 0.6 % (0-3.0); LYMPH # 1.6 10^3/uL (1.5-4.5); LYMPH % 18.1 % (24.0-44.0); MEAN CORPUSCULAR HEMOGLOBIN 28.9 pg (27.0-33.0); MEAN CORPUSCULAR HGB CONC 34.4 g/dl (32.0-36.5); MEAN CORPUSCULAR VOLUME 84.1 fl (80.0-96.0); MONO # 0.3 10^3/uL (0.0-0.8); MONO % 3.1 % (0.0-5.0); NEUTROPHILS # 6.5 10^3/uL (1.8-7.7); NEUTROPHILS % 75.5 % (36.0-66.0); PLATELET COUNT, AUTOMATED 181 10^3/uL (150-450); RED BLOOD COUNT 4.46 10^6/uL (4.30-6.10); RED CELL DISTRIBUTION WIDTH 13.6 % (11.5-14.5); WHITE BLOOD COUNT 8.6 10^3/uL (4.0-10.0)
[2018-02-23 06:15] LABS: ANION GAP 7 MEQ/L (8-16); BLOOD UREA NITROGEN 39 MG/DL (7-18); CALCIUM LEVEL 8.4 MG/DL (8.8-10.2); CARBON DIOXIDE LEVEL 23 MEQ/L (21-32); CHLORIDE LEVEL 113 MEQ/L (98-107); CREATININE FOR GFR 1.92 MG/DL (0.70-1.30); GLOMERULAR FILTRATION RATE 37.5 (>49); GLUCOSE, FASTING 172 MG/DL (70-100); POTASSIUM SERUM 3.6 MEQ/L (3.5-5.1); SODIUM LEVEL 143 MEQ/L (136-145)
[2018-02-23] MEDS: ASPIRIN 325 MG TAB PO (08:34)
[2018-02-23] MEDS: GABAPENTIN 300 MG CAP PO ×2 (08:34→20:06)
[2018-02-23] MEDS: ISOSORBIDE MON. (IMDUR) 30 MG XR TAB PO (08:34)
[2018-02-23] MEDS: APIXABAN 5 MG TAB (ELIQUIS) PO ×2 (08:34→20:07)
[2018-02-23] MEDS: CARVedilol 12.5 MG TAB PO ×2 (08:35→20:07)
[2018-02-23] MEDS: FAMOTIDINE 20 MG TAB PO ×2 (08:37→20:07)
[2018-02-23] MEDS: HumaLOG INSULIN (NovoLOG) PER UNIT SC ×4 (08:37→20:05)
[2018-02-23 11:39] LABS: BEDSIDE GLUCOSE 249 MG/DL (80-115)
[2018-02-23] MEDS: PERCOCET 5MG/325MG TAB PO (14:11)
[2018-02-23 17:08] LABS: BEDSIDE GLUCOSE 327 MG/DL (80-115)
[2018-02-23] MEDS: ATORVASTATIN 20 MG TAB PO (20:06)
[2018-02-23] MEDS: AMITRIPTYLINE 10 MG TAB PO (20:07)
[2018-02-23 20:39] LABS: BEDSIDE GLUCOSE 322 MG/DL (80-115)
[2018-02-24] MEDS: NS 1,000 ML IV ×2 (05:52→16:34)
[2018-02-24] MEDS: LEVOTHYROXINE 25MCG TABLET (0.025MG) PO (05:52)
[2018-02-24 06:58] LABS: BEDSIDE GLUCOSE 57 MG/DL (80-115)
[2018-02-24 06:58] LABS: BEDSIDE GLUCOSE 91 MG/DL (80-115)
[2018-02-24] MEDS: HumaLOG INSULIN (NovoLOG) PER UNIT SC ×4 (07:01→20:54)
[2018-02-24] MEDS: FAMOTIDINE 20 MG TAB PO ×2 (08:25→20:54)
[2018-02-24] MEDS: LEVEMIR (INSULIN DETEMIR) 1 UNITS/0.01ML SC ×2 (08:25→20:55)
[2018-02-24] MEDS: GABAPENTIN 300 MG CAP PO ×2 (08:25→20:54)
[2018-02-24] MEDS: ASPIRIN 325 MG TAB PO (08:25)
[2018-02-24] MEDS: APIXABAN 5 MG TAB (ELIQUIS) PO ×2 (08:25→20:54)
[2018-02-24] MEDS: ISOSORBIDE MON. (IMDUR) 30 MG XR TAB PO (08:27)
[2018-02-24] MEDS: CARVedilol 12.5 MG TAB PO ×2 (08:28→20:54)
[2018-02-24 16:43] LABS: BEDSIDE GLUCOSE 146 MG/DL (80-115)
[2018-02-24 18:50] LABS: ANION GAP 9 MEQ/L (8-16); BLOOD UREA NITROGEN 25 MG/DL (7-18); CALCIUM LEVEL 7.4 MG/DL (8.8-10.2); CARBON DIOXIDE LEVEL 19 MEQ/L (21-32); CHLORIDE LEVEL 120 MEQ/L (98-107); CREATININE FOR GFR 1.45 MG/DL (0.70-1.30); GLOMERULAR FILTRATION RATE 51.8 (>49); GLUCOSE, FASTING 170 MG/DL (70-100); POTASSIUM SERUM 4.3 MEQ/L (3.5-5.1); SODIUM LEVEL 148 MEQ/L (136-145)
[2018-02-24 20:30] LABS: BEDSIDE GLUCOSE 202 MG/DL (80-115)
[2018-02-24] MEDS: ATORVASTATIN 20 MG TAB PO (20:54)
[2018-02-24] MEDS: AMITRIPTYLINE 10 MG TAB PO (20:54)
[2018-02-25] MEDS: NS 1,000 ML IV (02:39)
[2018-02-25] MEDS: LEVOTHYROXINE 25MCG TABLET (0.025MG) PO (06:00)
[2018-02-25 06:14] LABS: HEMATOCRIT 38.5 % (42.0-52.0); HEMOGLOBIN 12.8 g/dl (13.5-17.5); MEAN CORPUSCULAR HEMOGLOBIN 28.6 pg (27.0-33.0); MEAN CORPUSCULAR HGB CONC 33.2 g/dl (32.0-36.5); MEAN CORPUSCULAR VOLUME 86.1 fl (80.0-96.0); PLATELET COUNT, AUTOMATED 166 10^3/uL (150-450); RED BLOOD COUNT 4.47 10^6/uL (4.30-6.10); RED CELL DISTRIBUTION WIDTH 13.8 % (11.5-14.5)
[2018-02-25 06:30] LABS: ALBUMIN 2.8 GM/DL (3.2-5.2); ALBUMIN/GLOBULIN RATIO 0.85 (1.00-1.93); ALKALINE PHOSPHATASE 57 U/L (45-117); ALT/SGPT 14 U/L (12-78); ANION GAP 7 MEQ/L (8-16); AST/SGOT 10 U/L (7-37); BILIRUBIN,TOTAL 0.3 MG/DL (0.2-1.0); BLOOD UREA NITROGEN 22 MG/DL (7-18); CALCIUM LEVEL 7.8 MG/DL (8.8-10.2); CARBON DIOXIDE LEVEL 24 MEQ/L (21-32); CHLORIDE LEVEL 117 MEQ/L (98-107); CREATININE FOR GFR 1.37 MG/DL (0.70-1.30); GLOMERULAR FILTRATION RATE 55.3 (>49); GLUCOSE, FASTING 123 MG/DL (70-100); POTASSIUM SERUM 4.2 MEQ/L (3.5-5.1); SODIUM LEVEL 148 MEQ/L (136-145); TOTAL PROTEIN 6.1 GM/DL (6.4-8.2)
[2018-02-25] MEDS: ASPIRIN 325 MG TAB PO (09:36)
[2018-02-25] MEDS: FAMOTIDINE 20 MG TAB PO ×2 (09:36→21:43)
[2018-02-25] MEDS: CARVedilol 12.5 MG TAB PO ×2 (09:36→21:43)
[2018-02-25] MEDS: ISOSORBIDE MON. (IMDUR) 30 MG XR TAB PO (09:37)
[2018-02-25] MEDS: APIXABAN 5 MG TAB (ELIQUIS) PO ×2 (09:37→21:43)
[2018-02-25] MEDS: HumaLOG INSULIN (NovoLOG) PER UNIT SC ×4 (09:37→21:44)
[2018-02-25] MEDS: GABAPENTIN 300 MG CAP PO ×2 (09:37→21:43)
[2018-02-25] MEDS: SPIRONOLACTONE 25 MG TAB PO (09:37)
[2018-02-25] MEDS: LEVEMIR (INSULIN DETEMIR) 1 UNITS/0.01ML SC ×2 (09:38→21:44)
[2018-02-25 11:45] LABS: BEDSIDE GLUCOSE 186 MG/DL (80-115)
[2018-02-25 12:14] LABS: BEDSIDE GLUCOSE 178 MG/DL (80-115)
[2018-02-25 16:46] LABS: BEDSIDE GLUCOSE 215 MG/DL (80-115)
[2018-02-25 21:00] LABS: BEDSIDE GLUCOSE 264 MG/DL (80-115)
[2018-02-25] MEDS: ATORVASTATIN 20 MG TAB PO (21:43)
[2018-02-25] MEDS: AMITRIPTYLINE 10 MG TAB PO (21:43)
[2018-02-26] MEDS: LEVOTHYROXINE 25MCG TABLET (0.025MG) PO (05:27)
[2018-02-26 06:40] LABS: HEMOGLOBIN 13.7 g/dl (13.5-17.5); MEAN CORPUSCULAR HEMOGLOBIN 29.1 pg (27.0-33.0); MEAN CORPUSCULAR HGB CONC 34.3 g/dl (32.0-36.5); MEAN CORPUSCULAR VOLUME 85.1 fl (80.0-96.0); PLATELET COUNT, AUTOMATED 186 10^3/uL (150-450); RED CELL DISTRIBUTION WIDTH 13.8 % (11.5-14.5); WHITE BLOOD COUNT 8.2 10^3/uL (4.0-10.0)
[2018-02-26 06:55] LABS: ALBUMIN 3.1 GM/DL (3.2-5.2); ALBUMIN/GLOBULIN RATIO 0.89 (1.00-1.93); ALKALINE PHOSPHATASE 61 U/L (45-117); ALT/SGPT 14 U/L (12-78); ANION GAP 6 MEQ/L (8-16); AST/SGOT 9 U/L (7-37); BILIRUBIN,TOTAL 0.4 MG/DL (0.2-1.0); BLOOD UREA NITROGEN 21 MG/DL (7-18); CALCIUM LEVEL 8.6 MG/DL (8.8-10.2); CARBON DIOXIDE LEVEL 26 MEQ/L (21-32); CHLORIDE LEVEL 113 MEQ/L (98-107); GLOMERULAR FILTRATION RATE 58.8 (>49); GLUCOSE, FASTING 62 MG/DL (70-100); SODIUM LEVEL 145 MEQ/L (136-145); TOTAL PROTEIN 6.6 GM/DL (6.4-8.2)
[2018-02-26] MEDS: HumaLOG INSULIN (NovoLOG) PER UNIT SC ×4 (07:30→20:27)
[2018-02-26] MEDS: FAMOTIDINE 20 MG TAB PO ×2 (08:38→20:28)
[2018-02-26] MEDS: ASPIRIN 325 MG TAB PO (08:38)
[2018-02-26] MEDS: CARVedilol 12.5 MG TAB PO ×2 (08:39→20:31)
[2018-02-26] MEDS: SPIRONOLACTONE 25 MG TAB PO (08:39)
[2018-02-26] MEDS: APIXABAN 5 MG TAB (ELIQUIS) PO ×2 (08:39→20:28)
[2018-02-26] MEDS: GABAPENTIN 300 MG CAP PO ×2 (08:39→20:28)
[2018-02-26] MEDS: ISOSORBIDE MON. (IMDUR) 30 MG XR TAB PO (08:39)
[2018-02-26] MEDS: LEVEMIR (INSULIN DETEMIR) 1 UNITS/0.01ML SC ×2 (09:00→20:28)
[2018-02-26 10:58] LABS: C REACTIVE PROTEIN QUANTITATIV 0.75 MG/DL (0.00-0.30)
[2018-02-26 15:04] LABS: BEDSIDE GLUCOSE 193 MG/DL (80-115)
[2018-02-26 20:16] LABS: BEDSIDE GLUCOSE 300 MG/DL (80-115)
[2018-02-26] MEDS: ATORVASTATIN 20 MG TAB PO (20:28)
[2018-02-26] MEDS: AMITRIPTYLINE 10 MG TAB PO (20:31)
[2018-02-27] MEDS: LEVOTHYROXINE 25MCG TABLET (0.025MG) PO (05:56)
[2018-02-27 06:29] LABS: HEMATOCRIT 39.7 % (42.0-52.0); HEMOGLOBIN 13.7 g/dl (13.5-17.5); MEAN CORPUSCULAR HEMOGLOBIN 28.8 pg (27.0-33.0); MEAN CORPUSCULAR HGB CONC 34.5 g/dl (32.0-36.5); MEAN CORPUSCULAR VOLUME 83.6 fl (80.0-96.0); PLATELET COUNT, AUTOMATED 175 10^3/uL (150-450); RED BLOOD COUNT 4.75 10^6/uL (4.30-6.10); RED CELL DISTRIBUTION WIDTH 13.6 % (11.5-14.5); WHITE BLOOD COUNT 8.2 10^3/uL (4.0-10.0)
[2018-02-27 06:48] LABS: ALBUMIN 2.9 GM/DL (3.2-5.2); ALBUMIN/GLOBULIN RATIO 0.85 (1.00-1.93); ALKALINE PHOSPHATASE 68 U/L (45-117); ALT/SGPT 16 U/L (12-78); ANION GAP 7 MEQ/L (8-16); AST/SGOT 6 U/L (7-37); BILIRUBIN,TOTAL 0.5 MG/DL (0.2-1.0); BLOOD UREA NITROGEN 18 MG/DL (7-18); CALCIUM LEVEL 8.5 MG/DL (8.8-10.2); CARBON DIOXIDE LEVEL 24 MEQ/L (21-32); CHLORIDE LEVEL 113 MEQ/L (98-107); CREATININE FOR GFR 1.32 MG/DL (0.70-1.30); GLOMERULAR FILTRATION RATE 57.8 (>49); GLUCOSE, FASTING 117 MG/DL (70-100); POTASSIUM SERUM 3.9 MEQ/L (3.5-5.1); SODIUM LEVEL 144 MEQ/L (136-145); TOTAL PROTEIN 6.3 GM/DL (6.4-8.2)
[2018-02-27] MEDS: LEVEMIR (INSULIN DETEMIR) 1 UNITS/0.01ML SC (08:26)
[2018-02-27] MEDS: HumaLOG INSULIN (NovoLOG) PER UNIT SC ×2 (08:26→12:10)
[2018-02-27] MEDS: FAMOTIDINE 20 MG TAB PO (08:27)
[2018-02-27] MEDS: ISOSORBIDE MON. (IMDUR) 30 MG XR TAB PO (08:27)
[2018-02-27] MEDS: APIXABAN 5 MG TAB (ELIQUIS) PO (08:27)
[2018-02-27] MEDS: GABAPENTIN 300 MG CAP PO (08:27)
[2018-02-27] MEDS: SPIRONOLACTONE 25 MG TAB PO (08:27)
[2018-02-27] MEDS: ASPIRIN 325 MG TAB PO (08:27)
[2018-02-27] MEDS: CARVedilol 12.5 MG TAB PO (08:28)
[2018-02-27 11:39] LABS: BEDSIDE GLUCOSE 137 MG/DL (80-115)
[2018-02-28 09:36] LABS: BEDSIDE GLUCOSE 291 MG/DL (80-115)
== END 2018-02-27 13:30 | disposition home or self-care (01) | DRG 683 ==
LOC: M ED INP 02-23 00:15 → M MSPAV 02-23 01:33 → M ED 19:31
DX: N17.9 Acute kidney failure, unspecified (principal); I13.0 Hypertensive heart and chronic kidney disease with heart failure and stage 1 through stage 4 chronic kidney disease, or unspecified chronic kidney disease; N18.3 Chronic kidney disease, stage 3 (moderate); M79.672 Pain in left foot; Z98.890 Other specified postprocedural states; M19.272 Secondary osteoarthritis, left ankle and foot; E11.65 Type 2 diabetes mellitus with hyperglycemia; I50.9 Heart failure, unspecified; M67.02 Short Achilles tendon (acquired), left ankle; E78.5 Hyperlipidemia, unspecified; I73.9 Peripheral vascular disease, unspecified; Z86.718 Personal history of other venous thrombosis and embolism; E03.9 Hypothyroidism, unspecified; E86.0 Dehydration; Z79.899 Other long term (current) drug therapy; R19.7 Diarrhea, unspecified; Z87.891 Personal history of nicotine dependence; E11.40 Type 2 diabetes mellitus with diabetic neuropathy, unspecified; Z97.8 Presence of other specified devices

== ENCOUNTER → 2018-02-22 | Outpatient (CLI) | payer MEDICARE | LOC: M RAD 16:30 | DX: R93.8 Abnormal findings on diagnostic imaging of other specified body structures (principal); M79.672 Pain in left foot; Z96.9 Presence of functional implant, unspecified; M19.272 Secondary osteoarthritis, left ankle and foot ==

== ENCOUNTER → 2018-03-05 | Outpatient (REF) | payer MEDICARE ==
[2018-03-05 19:31] LABS: HEMATOCRIT 44.2 % (42.0-52.0); HEMOGLOBIN 14.3 g/dl (13.5-17.5); MEAN CORPUSCULAR HEMOGLOBIN 28.8 pg (27.0-33.0); MEAN CORPUSCULAR HGB CONC 32.4 g/dl (32.0-36.5); MEAN CORPUSCULAR VOLUME 89.1 fl (80.0-96.0); PLATELET COUNT, AUTOMATED 177 10^3/uL (150-450); RED BLOOD COUNT 4.96 10^6/uL (4.30-6.10); WHITE BLOOD COUNT 8.1 10^3/uL (4.0-10.0)
[2018-03-05 20:04] LABS: ANION GAP 8 MEQ/L (8-16); BLOOD UREA NITROGEN 29 MG/DL (7-18); CALCIUM LEVEL 8.4 MG/DL (8.8-10.2); CARBON DIOXIDE LEVEL 24 MEQ/L (21-32); CHLORIDE LEVEL 110 MEQ/L (98-107); CREATININE FOR GFR 1.52 MG/DL (0.70-1.30); GLOMERULAR FILTRATION RATE 49.1 (>49); GLUCOSE, FASTING 224 MG/DL (70-100); SODIUM LEVEL 142 MEQ/L (136-145)
== END ==
LOC: M SFHCADAM 11:37
DX: N18.3 Chronic kidney disease, stage 3 (moderate) (principal); D63.8 Anemia in other chronic diseases classified elsewhere
CPT/HCPCS: 80048

== ENCOUNTER 2018-05-17 08:51 | Inpatient (IN) | payer MEDICARE ==
[2018-05-17] MEDS: ONDANSETRON 4MG/2ML VIAL (J2405) IV ×2 (09:50→11:46)
[2018-05-17] MEDS: NS 1,000 ML IV ×2 (09:50→11:21)
[2018-05-17 09:55] LABS: BASO % 0.5 % (0.0-1.0); EOS % 0.2 % (0.0-3.0); HEMATOCRIT 41.7 % (42.0-52.0); HEMOGLOBIN 14.3 g/dl (13.5-17.5); IMMATURE GRANULOCYTE % 2.2 % (0-3.0); LYMPH # 0.5 10^3/uL (1.5-4.5); LYMPH % 8.1 % (24.0-44.0); MEAN CORPUSCULAR HEMOGLOBIN 29.5 pg (27.0-33.0); MEAN CORPUSCULAR HGB CONC 34.3 g/dl (32.0-36.5); MEAN CORPUSCULAR VOLUME 86.2 fl (80.0-96.0); MONO # 0.4 10^3/uL (0.0-0.8); MONO % 7.4 % (0.0-5.0); NEUTROPHILS # 4.5 10^3/uL (1.8-7.7); NEUTROPHILS % 81.6 % (36.0-66.0); PLATELET COUNT, AUTOMATED 242 10^3/uL (150-450); RED BLOOD COUNT 4.84 10^6/uL (4.30-6.10); RED CELL DISTRIBUTION WIDTH 15.8 % (11.5-14.5); WHITE BLOOD COUNT 5.6 10^3/uL (4.0-10.0)
[2018-05-17 10:06] LABS: PROTHROMBIN TIME 13.3 SECONDS (12.1-14.4)
[2018-05-17 10:07] LABS: PARTIAL THROMBOPLASTIN TIME 22.7 SECONDS (25.4-37.6)
[2018-05-17 10:45] LABS: ALBUMIN/GLOBULIN RATIO 0.57 (1.00-1.93); ALKALINE PHOSPHATASE 110 U/L (45-117); ALT/SGPT 12 U/L (12-78); AMYLASE 51 U/L (25-115); ANION GAP 22 MEQ/L (8-16); AST/SGOT 7 U/L (7-37); BILIRUBIN,DIRECT 0.2 MG/DL (0.0-0.2); BILIRUBIN,TOTAL 0.6 MG/DL (0.2-1.0); BLOOD UREA NITROGEN 60 MG/DL (7-18); CALCIUM LEVEL 10.1 MG/DL (8.8-10.2); CARBON DIOXIDE LEVEL 18 MEQ/L (21-32); CHLORIDE LEVEL 87 MEQ/L (98-107); CPK CREATINE PHOSPHOKINASE 40 U/L (39-308); CREATININE FOR GFR 2.07 MG/DL (0.70-1.30); GLOMERULAR FILTRATION RATE 34.4 (>49); LIPASE 129 U/L (73-393); SODIUM LEVEL 127 MEQ/L (136-145); TOTAL PROTEIN 8.3 GM/DL (6.4-8.2); TROPONIN I < 0.02 NG/ML (< 0.10)
[2018-05-17 11:13] LABS: GLUCOSE, FASTING 808 MG/DL (70-100)
[2018-05-17 11:14] LABS: POTASSIUM SERUM 5.4 MEQ/L (3.5-5.1)
[2018-05-17 11:29] LABS: MUCUS, URINE RFX SMALL (NEGATIVE); RBC, URINE AUTO RFX 1 /HPF (0-3); SQUAM EPITHELIAL CELL UR AURFX 0 /HPF (0-6); WBC, URINE AUTO RFX 0 /HPF (0-3)
[2018-05-17] MEDS: HumuLIN R (REGULAR) INSULIN (NovoLIN R) **100U/ML** PER UNIT IV ×2 (11:39→16:35)
[2018-05-17 11:40] LABS: KETONE, URINE AUTO RFX 1+ mg/dL (NEGATIVE); LEUKOCYTE ESTERASE UR AUTO RFX NEGATIVE (NEGATIVE); NITRITE, URINE AUTO RFX NEGATIVE (NEGATIVE); SPECIFIC GRAVITY UR AUTO RFX 1.025 (1.002-1.035)
[2018-05-17 12:12] LABS: ABG BASE EXCESS -11.1 (-2.0-2.0); ABG HCO3 13.8 MEQ/L (22.0-26.0); ABG O2 SATURATION 93.1 % (95.0-99.0); ABG PARTIAL PRESSURE CO2 28.5 mmHg (35.0-45.0); ABG PARTIAL PRESSURE O2 71.9 mmHg (75.0-100.0); ABG STANDARD HCO3 15.6 MEQ/L (22.0-26.0); ABG TOTAL CO2 14.7 MEQ/L (23.0-31.0); ABG pH (ARTERIAL) 7.303 UNITS (7.350-7.450)
[2018-05-17 12:17] LABS: BEDSIDE GLUCOSE 583 MG/DL (80-115)
[2018-05-17 13:23] LABS: BEDSIDE GLUCOSE 470 MG/DL (80-115)
[2018-05-17 14:37] LABS: BEDSIDE GLUCOSE 454 MG/DL (80-115)
[2018-05-17 14:45] LABS: ANION GAP 16 MEQ/L (8-16); BLOOD UREA NITROGEN 51 MG/DL (7-18); CALCIUM LEVEL 8.1 MG/DL (8.8-10.2); CARBON DIOXIDE LEVEL 21 MEQ/L (21-32); CHLORIDE LEVEL 101 MEQ/L (98-107); POTASSIUM SERUM 4.5 MEQ/L (3.5-5.1); SODIUM LEVEL 138 MEQ/L (136-145)
[2018-05-17 14:49] LABS: GLUCOSE, FASTING 460 MG/DL (70-100)
[2018-05-17] MEDS ORDERED: ONDANSETRON 4 MG ORAL DISINTEGRATING TAB (Q0162 PER 1MG) PO (15:45)
[2018-05-17] MEDS ORDERED: AMITRIPTYLINE 10 MG TAB PO (15:45)
[2018-05-17] MEDS ORDERED: GLUCOSE 4 GM CHEW TABLET PO (16:00)
[2018-05-17 16:04] LABS: BEDSIDE GLUCOSE 411 MG/DL (80-115)
[2018-05-17 16:07] LABS: MAGNESIUM LEVEL 2.5 MG/DL (1.8-2.4)
[2018-05-17 16:20] LABS: ESTIMATED AVERAGE GLUCOSE 369 MG/DL (60-110); HEMOGLOBIN A1c 14.5 %
[2018-05-17] MEDS: NS 0.45% 1,000 ML IV ×2 (16:40→20:51)
[2018-05-17 17:54] LABS: BEDSIDE GLUCOSE 347 MG/DL (80-115)
[2018-05-17 18:56] LABS: BEDSIDE GLUCOSE 371 MG/DL (80-115)
[2018-05-17] MEDS: HumaLOG INSULIN (NovoLOG) PER UNIT SC ×2 (19:00→20:53)
[2018-05-17 19:16] LABS: ANION GAP 12 MEQ/L (8-16); BLOOD UREA NITROGEN 42 MG/DL (7-18); CALCIUM LEVEL 8.2 MG/DL (8.8-10.2); CARBON DIOXIDE LEVEL 23 MEQ/L (21-32); CHLORIDE LEVEL 105 MEQ/L (98-107); CREATININE FOR GFR 1.38 MG/DL (0.70-1.30); GLOMERULAR FILTRATION RATE 54.9 (>49); GLUCOSE, FASTING 298 MG/DL (70-100); POTASSIUM SERUM 4.2 MEQ/L (3.5-5.1); SODIUM LEVEL 140 MEQ/L (136-145)
[2018-05-17 20:16] LABS: BEDSIDE GLUCOSE 266 MG/DL (80-115)
[2018-05-17] MEDS ORDERED: PILL CRUSHER/CUTTER 1 EACH XX (20:30)
[2018-05-17] MEDS: ATORVASTATIN 20 MG TAB PO (20:51)
[2018-05-17] MEDS: CARVedilol 12.5 MG TAB PO (20:52)
[2018-05-17] MEDS: APIXABAN 5 MG TAB (ELIQUIS) PO (20:52)
[2018-05-17] MEDS: FAMOTIDINE 20 MG TAB PO (20:52)
[2018-05-17] MEDS: GABAPENTIN 300 MG CAP PO (20:52)
[2018-05-17] MEDS: LEVEMIR (INSULIN DETEMIR) 1 UNITS/0.01ML SC (20:53)
[2018-05-18] MEDS: NS 0.45% 1,000 ML IV ×2 (00:56→05:01)
[2018-05-18 04:10] LABS: BEDSIDE GLUCOSE 123 MG/DL (80-115)
[2018-05-18 05:38] LABS: BASO % 0.5 % (0.0-1.0); EOS # 0.1 10^3/uL (0.0-0.50); EOS % 2.7 % (0.0-3.0); HEMATOCRIT 31.2 % (42.0-52.0); IMMATURE GRANULOCYTE % 1.4 % (0-3.0); LYMPH # 0.6 10^3/uL (1.5-4.5); MEAN CORPUSCULAR HEMOGLOBIN 29.6 pg (27.0-33.0); MEAN CORPUSCULAR HGB CONC 34.3 g/dl (32.0-36.5); MEAN CORPUSCULAR VOLUME 86.2 fl (80.0-96.0); MONO # 0.4 10^3/uL (0.0-0.8); MONO % 7.9 % (0.0-5.0); NEUTROPHILS # 3.3 10^3/uL (1.8-7.7); NEUTROPHILS % 73.5 % (36.0-66.0); PLATELET COUNT, AUTOMATED 166 10^3/uL (150-450); RED BLOOD COUNT 3.62 10^6/uL (4.30-6.10); RED CELL DISTRIBUTION WIDTH 15.5 % (11.5-14.5); WHITE BLOOD COUNT 4.4 10^3/uL (4.0-10.0)
[2018-05-18 05:45] LABS: HEMOGLOBIN 10.7 g/dl (13.5-17.5)
[2018-05-18 05:59] LABS: ALBUMIN 2.2 GM/DL (3.2-5.2); ALBUMIN/GLOBULIN RATIO 0.61 (1.00-1.93); ALKALINE PHOSPHATASE 74 U/L (45-117); ALT/SGPT 9 U/L (12-78); ANION GAP 8 MEQ/L (8-16); AST/SGOT 11 U/L (7-37); BILIRUBIN,TOTAL 0.7 MG/DL (0.2-1.0); BLOOD UREA NITROGEN 28 MG/DL (7-18); CALCIUM LEVEL 7.6 MG/DL (8.8-10.2); CARBON DIOXIDE LEVEL 26 MEQ/L (21-32); CHLORIDE LEVEL 105 MEQ/L (98-107); GLOMERULAR FILTRATION RATE > 60.0 (>49); GLUCOSE, FASTING 80 MG/DL (70-100); POTASSIUM SERUM 3.6 MEQ/L (3.5-5.1); SODIUM LEVEL 139 MEQ/L (136-145); TOTAL PROTEIN 5.8 GM/DL (6.4-8.2)
[2018-05-18] MEDS: LEVOTHYROXINE 25MCG TABLET (0.025MG) PO (06:08)
[2018-05-18] MEDS: HumaLOG INSULIN (NovoLOG) PER UNIT SC ×5 (07:30→22:36)
[2018-05-18 08:12] LABS: BEDSIDE GLUCOSE 77 MG/DL (80-115)
[2018-05-18] MEDS: APIXABAN 5 MG TAB (ELIQUIS) PO ×2 (09:29→21:08)
[2018-05-18] MEDS: FAMOTIDINE 20 MG TAB PO ×2 (09:29→21:07)
[2018-05-18] MEDS: ASPIRIN 325 MG TAB PO (09:29)
[2018-05-18] MEDS: ISOSORBIDE MON. (IMDUR) 30 MG XR TAB PO (09:29)
[2018-05-18] MEDS: GABAPENTIN 300 MG CAP PO ×2 (09:29→21:08)
[2018-05-18] MEDS: CARVedilol 12.5 MG TAB PO ×2 (09:30→21:08)
[2018-05-18] MEDS: LEVEMIR (INSULIN DETEMIR) 1 UNITS/0.01ML SC ×2 (09:33→21:00)
[2018-05-18 11:50] LABS: BEDSIDE GLUCOSE 104 MG/DL (80-115)
[2018-05-18 12:31] LABS: ABG BASE EXCESS -1.6 (-2.0-2.0); ABG HCO3 21.6 MEQ/L (22.0-26.0); ABG O2 SATURATION 88.9 % (95.0-99.0); ABG PARTIAL PRESSURE CO2 31.2 mmHg (35.0-45.0); ABG PARTIAL PRESSURE O2 50.4 mmHg (75.0-100.0); ABG TOTAL CO2 22.5 MEQ/L (23.0-31.0); ABG pH (ARTERIAL) 7.458 UNITS (7.350-7.450)
[2018-05-18] MEDS: FUROSEMIDE 20 MG/2 ML VIAL (J1940) IV (13:29)
[2018-05-18 17:13] LABS: BEDSIDE GLUCOSE 38 MG/DL (80-115)
[2018-05-18] MEDS: GLUCAGON FOR INJ 1 MG VIAL (J1610) SC (17:24)
[2018-05-18] MEDS: DEXTROSE 50% 50 ML SYRINGE IV (17:28)
[2018-05-18 17:51] LABS: BEDSIDE GLUCOSE 128 MG/DL (80-115)
[2018-05-18] MEDS: D10W 1,000 ML IV (18:20)
[2018-05-18 20:12] LABS: BEDSIDE GLUCOSE 133 MG/DL (80-115)
[2018-05-18] MEDS: ATORVASTATIN 20 MG TAB PO (21:08)
[2018-05-18 22:53] LABS: BEDSIDE GLUCOSE 425 MG/DL (80-115)
[2018-05-19 02:07] LABS: BEDSIDE GLUCOSE 312 MG/DL (80-115)
[2018-05-19 03:33] LABS: BEDSIDE GLUCOSE 253 MG/DL (80-115)
[2018-05-19] MEDS: ACETAMINOPHEN 500 MG TAB PO (04:02)
[2018-05-19 05:45] LABS: HEMATOCRIT 28.2 % (42.0-52.0); HEMOGLOBIN 9.8 g/dl (13.5-17.5); MEAN CORPUSCULAR HEMOGLOBIN 29.1 pg (27.0-33.0); MEAN CORPUSCULAR HGB CONC 34.8 g/dl (32.0-36.5); MEAN CORPUSCULAR VOLUME 83.7 fl (80.0-96.0); PLATELET COUNT, AUTOMATED 138 10^3/uL (150-450); RED BLOOD COUNT 3.37 10^6/uL (4.30-6.10); RED CELL DISTRIBUTION WIDTH 14.8 % (11.5-14.5); WHITE BLOOD COUNT 3.3 10^3/uL (4.0-10.0)
[2018-05-19 06:03] LABS: ALBUMIN 2.2 GM/DL (3.2-5.2); ALBUMIN/GLOBULIN RATIO 0.65 (1.00-1.93); ALKALINE PHOSPHATASE 68 U/L (45-117); ALT/SGPT 9 U/L (12-78); ANION GAP 10 MEQ/L (8-16); AST/SGOT 13 U/L (7-37); BILIRUBIN,TOTAL 0.6 MG/DL (0.2-1.0); BLOOD UREA NITROGEN 20 MG/DL (7-18); CALCIUM LEVEL 7.8 MG/DL (8.8-10.2); CARBON DIOXIDE LEVEL 24 MEQ/L (21-32); CHLORIDE LEVEL 105 MEQ/L (98-107); CREATININE FOR GFR 1.24 MG/DL (0.70-1.30); GLOMERULAR FILTRATION RATE > 60.0 (>49); GLUCOSE, FASTING 207 MG/DL (70-100); MAGNESIUM LEVEL 1.8 MG/DL (1.8-2.4); POTASSIUM SERUM 3.4 MEQ/L (3.5-5.1); SODIUM LEVEL 139 MEQ/L (136-145); TOTAL PROTEIN 5.6 GM/DL (6.4-8.2)
[2018-05-19] MEDS: LEVOTHYROXINE 25MCG TABLET (0.025MG) PO (06:28)
[2018-05-19 07:32] LABS: BEDSIDE GLUCOSE 198 MG/DL (80-115)
[2018-05-19 07:58] LABS: BEDSIDE GLUCOSE 178 MG/DL (80-115)
[2018-05-19] MEDS: HumaLOG INSULIN (NovoLOG) PER UNIT SC ×5 (08:00→21:04)
[2018-05-19] MEDS: CARVedilol 12.5 MG TAB PO ×2 (08:42→21:05)
[2018-05-19] MEDS: FAMOTIDINE 20 MG TAB PO ×2 (08:52→21:05)
[2018-05-19] MEDS: ISOSORBIDE MON. (IMDUR) 30 MG XR TAB PO (08:52)
[2018-05-19] MEDS: APIXABAN 5 MG TAB (ELIQUIS) PO ×2 (08:52→21:05)
[2018-05-19] MEDS: ASPIRIN 325 MG TAB PO (08:52)
[2018-05-19] MEDS: GABAPENTIN 300 MG CAP PO ×2 (08:52→21:05)
[2018-05-19] MEDS: LEVEMIR (INSULIN DETEMIR) 1 UNITS/0.01ML SC ×2 (08:54→21:03)
[2018-05-19 11:53] LABS: BEDSIDE GLUCOSE 486 MG/DL (80-115)
[2018-05-19 12:20] LABS: HEMATOCRIT 29.5 % (42.0-52.0); HEMOGLOBIN 10.1 g/dl (13.5-17.5); MEAN CORPUSCULAR HGB CONC 34.2 g/dl (32.0-36.5); MEAN CORPUSCULAR VOLUME 84.8 fl (80.0-96.0); PLATELET COUNT, AUTOMATED 120 10^3/uL (150-450); RED BLOOD COUNT 3.48 10^6/uL (4.30-6.10); RED CELL DISTRIBUTION WIDTH 14.9 % (11.5-14.5); WHITE BLOOD COUNT 2.9 10^3/uL (4.0-10.0)
[2018-05-19] MEDS: POTASSIUM CHLORIDE 10 MEQ SR TABLET PO (14:38)
[2018-05-19 14:43] LABS: BEDSIDE GLUCOSE CONFIRMATION 602 MG/DL (LESS THAN 200)
[2018-05-19 16:54] LABS: BEDSIDE GLUCOSE 472 MG/DL (80-115)
[2018-05-19 20:00] LABS: BEDSIDE GLUCOSE 442 MG/DL (80-115)
[2018-05-19] MEDS: ATORVASTATIN 20 MG TAB PO (21:05)
[2018-05-19] MEDS: SLF 3 ML SYR IV (22:00)
[2018-05-19] MEDS ORDERED: SLF 3 ML SYR IV (22:00)
[2018-05-20 00:12] LABS: BEDSIDE GLUCOSE 281 MG/DL (80-115)
[2018-05-20 04:18] LABS: BEDSIDE GLUCOSE 322 MG/DL (80-115)
[2018-05-20 05:14] LABS: BASO % 0.6 % (0.0-1.0); EOS # 0.1 10^3/uL (0.0-0.50); EOS % 1.8 % (0.0-3.0); HEMATOCRIT 28.7 % (42.0-52.0); HEMOGLOBIN 9.7 g/dl (13.5-17.5); IMMATURE GRANULOCYTE % 0.9 % (0-3.0); LYMPH # 0.7 10^3/uL (1.5-4.5); LYMPH % 21.5 % (24.0-44.0); MEAN CORPUSCULAR HGB CONC 33.8 g/dl (32.0-36.5); MEAN CORPUSCULAR VOLUME 85.7 fl (80.0-96.0); MONO # 0.3 10^3/uL (0.0-0.8); MONO % 7.9 % (0.0-5.0); NEUTROPHILS # 2.2 10^3/uL (1.8-7.7); NEUTROPHILS % 67.3 % (36.0-66.0); PLATELET COUNT, AUTOMATED 105 10^3/uL (150-450); RED BLOOD COUNT 3.35 10^6/uL (4.30-6.10); RED CELL DISTRIBUTION WIDTH 14.6 % (11.5-14.5); WHITE BLOOD COUNT 3.3 10^3/uL (4.0-10.0)
[2018-05-20 05:30] LABS: ALBUMIN 2.1 GM/DL (3.2-5.2); ALBUMIN/GLOBULIN RATIO 0.58 (1.00-1.93); ALKALINE PHOSPHATASE 69 U/L (45-117); ALT/SGPT 9 U/L (12-78); ANION GAP 6 MEQ/L (8-16); AST/SGOT 11 U/L (7-37); BILIRUBIN,TOTAL 0.6 MG/DL (0.2-1.0); BLOOD UREA NITROGEN 14 MG/DL (7-18); CALCIUM LEVEL 7.9 MG/DL (8.8-10.2); CARBON DIOXIDE LEVEL 28 MEQ/L (21-32); CHLORIDE LEVEL 104 MEQ/L (98-107); CREATININE FOR GFR 1.26 MG/DL (0.70-1.30); GLOMERULAR FILTRATION RATE > 60.0 (>49); GLUCOSE, FASTING 309 MG/DL (70-100); MAGNESIUM LEVEL 1.9 MG/DL (1.8-2.4); POTASSIUM SERUM 3.9 MEQ/L (3.5-5.1); SODIUM LEVEL 138 MEQ/L (136-145); TOTAL PROTEIN 5.7 GM/DL (6.4-8.2)
[2018-05-20] MEDS: SLF 3 ML SYR IV ×3 (05:46→21:06)
[2018-05-20] MEDS: LEVOTHYROXINE 25MCG TABLET (0.025MG) PO (05:46)
[2018-05-20] MEDS: LEVEMIR (INSULIN DETEMIR) 1 UNITS/0.01ML SC ×2 (07:44→21:02)
[2018-05-20] MEDS: HumaLOG INSULIN (NovoLOG) PER UNIT SC ×5 (07:44→21:04)
[2018-05-20] MEDS: ISOSORBIDE MON. (IMDUR) 30 MG XR TAB PO (09:03)
[2018-05-20] MEDS: FAMOTIDINE 20 MG TAB PO ×2 (09:04→21:05)
[2018-05-20] MEDS: CARVedilol 12.5 MG TAB PO (09:04)
[2018-05-20] MEDS: ASPIRIN 325 MG TAB PO (09:04)
[2018-05-20] MEDS: APIXABAN 5 MG TAB (ELIQUIS) PO ×2 (09:04→21:05)
[2018-05-20] MEDS: SPIRONOLACTONE 25 MG TAB PO (09:05)
[2018-05-20] MEDS: LISINOPRIL 5 MG TAB PO (09:05)
[2018-05-20] MEDS: GABAPENTIN 300 MG CAP PO (09:05)
[2018-05-20] MEDS: ACETAMINOPHEN 500 MG TAB PO ×2 (11:25→17:10)
[2018-05-20 11:34] LABS: BEDSIDE GLUCOSE 342 MG/DL (80-115)
[2018-05-20] MEDS: NS 500 ML IV ×2 (12:20→14:45)
[2018-05-20] MEDS: CEFTAROLINE FOSAMIL 600 MG in D5W MINI-BAG PLUS 50 ML IV (13:23)
[2018-05-20 13:27] LABS: LACTIC ACID SEPSIS PROTOCOL 2.2 MMOL/L (0.4-2.0)
[2018-05-20] MEDS: KCL 40MEQ in NS 1000ML 1,000 ML IV (13:53)
[2018-05-20 14:34] LABS: BEDSIDE GLUCOSE 285 MG/DL (80-115)
[2018-05-20 15:00] LABS: ABG BASE EXCESS -5.6 (-2.0-2.0); ABG HCO3 17.3 MEQ/L (22.0-26.0); ABG O2 SATURATION 86.2 % (95.0-99.0); ABG PARTIAL PRESSURE O2 51.1 mmHg (75.0-100.0); ABG STANDARD HCO3 19.7 MEQ/L (22.0-26.0); ABG TOTAL CO2 18.1 MEQ/L (23.0-31.0); ABG pH (ARTERIAL) 7.459 UNITS (7.350-7.450)
[2018-05-20 15:14] LABS: INR 1.51; PROTHROMBIN TIME 18.4 SECONDS (12.1-14.4)
[2018-05-20 15:15] LABS: FIBRINOGEN 456 MG/DL (221-452)
[2018-05-20 15:35] LABS: TROPONIN I 0.03 NG/ML (< 0.10)
[2018-05-20 16:30] LABS: BEDSIDE GLUCOSE 212 MG/DL (80-115)
[2018-05-20] MEDS: LevoFLOXacin IV 750 MG in APPROPRIATE DILUENT 1 EA IV (17:10)
[2018-05-20 18:08] LABS: APPEARANCE, URINE CLEAR (CLEAR); BACTERIA, URINE AUTO NEGATIVE (NEGATIVE); BILIRUBIN, URINE AUTO NEGATIVE (NEGATIVE); BLOOD, URINE BLOOD NEGATIVE (NEGATIVE); COLOR, URINE YELLOW (YELLOW); GLUCOSE, URINE (UA) AUTO 3+ mg/dL (NEGATIVE); KETONE, URINE AUTO NEGATIVE (NEGATIVE); LEUKOCYTE ESTERASE, URINE AUTO NEGATIVE (NEGATIVE); MUCUS, URINE SMALL (NEGATIVE); NITRITE, URINE AUTO NEGATIVE (NEGATIVE); PROTEIN, URINE AUTO NEGATIVE (NEGATIVE); RBC, URINE AUTO 2 /HPF (0-3); SQUAMOUS EPITHELIAL CELL UR AU 0 /HPF (0-6); UROBILINOGEN, URINE AUTO 0.2 mg/dL (0.0-2.0); WBC, URINE AUTO 1 /HPF (0-3)
[2018-05-20 20:52] LABS: BEDSIDE GLUCOSE 355 MG/DL (80-115)
[2018-05-20] MEDS: LACTOBACILLUS ACIDOPHILUS CAP (BACID) PO (21:04)
[2018-05-20] MEDS: ATORVASTATIN 20 MG TAB PO (21:04)
[2018-05-21] MEDS: CEFTAROLINE FOSAMIL 600 MG in D5W MINI-BAG PLUS 50 ML IV ×2 (00:32→12:56)
[2018-05-21] MEDS: ACETAMINOPHEN 500 MG TAB PO (04:52)
[2018-05-21 05:34] LABS: BASO % 0.6 % (0.0-1.0); EOS # 0.1 10^3/uL (0.0-0.50); EOS % 1.8 % (0.0-3.0); HEMATOCRIT 29.1 % (42.0-52.0); HEMOGLOBIN 9.8 g/dl (13.5-17.5); IMMATURE GRANULOCYTE % 0.6 % (0-3.0); LYMPH # 0.5 10^3/uL (1.5-4.5); LYMPH % 14.2 % (24.0-44.0); MEAN CORPUSCULAR HEMOGLOBIN 29.2 pg (27.0-33.0); MEAN CORPUSCULAR HGB CONC 33.7 g/dl (32.0-36.5); MEAN CORPUSCULAR VOLUME 86.6 fl (80.0-96.0); MONO # 0.3 10^3/uL (0.0-0.8); MONO % 8.3 % (0.0-5.0); NEUTROPHILS # 2.5 10^3/uL (1.8-7.7); NEUTROPHILS % 74.5 % (36.0-66.0); PLATELET COUNT, AUTOMATED 105 10^3/uL (150-450); RED BLOOD COUNT 3.36 10^6/uL (4.30-6.10); RED CELL DISTRIBUTION WIDTH 14.7 % (11.5-14.5); WHITE BLOOD COUNT 3.4 10^3/uL (4.0-10.0)
[2018-05-21 05:49] LABS: ALBUMIN/GLOBULIN RATIO 0.53 (1.00-1.93); ALKALINE PHOSPHATASE 69 U/L (45-117); ALT/SGPT 11 U/L (12-78); ANION GAP 7 MEQ/L (8-16); AST/SGOT 15 U/L (7-37); BILIRUBIN,TOTAL 0.6 MG/DL (0.2-1.0); BLOOD UREA NITROGEN 14 MG/DL (7-18); CALCIUM LEVEL 7.9 MG/DL (8.8-10.2); CARBON DIOXIDE LEVEL 26 MEQ/L (21-32); CHLORIDE LEVEL 105 MEQ/L (98-107); CREATININE FOR GFR 1.13 MG/DL (0.70-1.30); GLOMERULAR FILTRATION RATE > 60.0 (>49); GLUCOSE, FASTING 245 MG/DL (70-100); INR 1.58; POTASSIUM SERUM 4.7 MEQ/L (3.5-5.1); PROTHROMBIN TIME 19.1 SECONDS (12.1-14.4); SODIUM LEVEL 138 MEQ/L (136-145); TOTAL PROTEIN 5.8 GM/DL (6.4-8.2)
[2018-05-21 05:49] LABS: FIBRINOGEN 624 MG/DL (221-452)
[2018-05-21] MEDS: SLF 3 ML SYR IV ×3 (06:00→21:13)
[2018-05-21] MEDS: LEVOTHYROXINE 25MCG TABLET (0.025MG) PO (06:31)
[2018-05-21] MEDS: KCL 40MEQ in NS 1000ML 1,000 ML IV (06:32)
[2018-05-21] MEDS: LACTOBACILLUS ACIDOPHILUS CAP (BACID) PO ×2 (09:04→21:11)
[2018-05-21] MEDS: APIXABAN 5 MG TAB (ELIQUIS) PO ×2 (09:04→21:12)
[2018-05-21] MEDS: FAMOTIDINE 20 MG TAB PO ×2 (09:04→21:12)
[2018-05-21] MEDS: LEVEMIR (INSULIN DETEMIR) 1 UNITS/0.01ML SC ×2 (09:05→21:12)
[2018-05-21] MEDS: HumaLOG INSULIN (NovoLOG) PER UNIT SC ×4 (09:06→18:00)
[2018-05-21 11:45] LABS: BEDSIDE GLUCOSE 273 MG/DL (80-115)
[2018-05-21 14:25] LABS: ABG BASE EXCESS -9.5 (-2.0-2.0); ABG HCO3 14.6 MEQ/L (22.0-26.0); ABG O2 SATURATION 83.5 % (95.0-99.0); ABG PARTIAL PRESSURE CO2 27.2 mmHg (35.0-45.0); ABG STANDARD HCO3 16.6 MEQ/L (22.0-26.0); ABG TOTAL CO2 15.5 MEQ/L (23.0-31.0); ABG pH (ARTERIAL) 7.349 UNITS (7.350-7.450)
[2018-05-21] MEDS ORDERED: FUROSEMIDE 40 MG/4 ML VIAL (J1940) As Ordered (14:27)
[2018-05-21] MEDS: FUROSEMIDE 40 MG/4 ML VIAL (J1940) IV (14:30)
[2018-05-21 14:32] LABS: ABG PARTIAL PRESSURE O2 48.8 mmHg (75.0-100.0)
[2018-05-21 14:44] LABS: BASO % 0.6 % (0.0-1.0); EOS # 0.1 10^3/uL (0.0-0.50); EOS % 1.6 % (0.0-3.0); IMMATURE GRANULOCYTE % 0.9 % (0-3.0); LYMPH # 0.5 10^3/uL (1.5-4.5); LYMPH % 7.9 % (24.0-44.0); MEAN CORPUSCULAR HEMOGLOBIN 29.4 pg (27.0-33.0); MEAN CORPUSCULAR HGB CONC 34.4 g/dl (32.0-36.5); MEAN CORPUSCULAR VOLUME 85.6 fl (80.0-96.0); MONO # 0.7 10^3/uL (0.0-0.8); NEUTROPHILS # 5.3 10^3/uL (1.8-7.7); PLATELET COUNT, AUTOMATED 157 10^3/uL (150-450); RED BLOOD COUNT 3.74 10^6/uL (4.30-6.10); WHITE BLOOD COUNT 6.7 10^3/uL (4.0-10.0)
[2018-05-21] MEDS ORDERED: ALBUTEROL SULFATE 2.5 MG/0.5 ML INH NEB SOLN INH (14:45)
[2018-05-21 14:47] LABS: ALBUMIN 2.2 GM/DL (3.2-5.2); ALBUMIN/GLOBULIN RATIO 0.58 (1.00-1.93); ALKALINE PHOSPHATASE 92 U/L (45-117); ALT/SGPT 14 U/L (12-78); ANION GAP 18 MEQ/L (8-16); AST/SGOT 24 U/L (7-37); BILIRUBIN,TOTAL 0.7 MG/DL (0.2-1.0); BLOOD UREA NITROGEN 15 MG/DL (7-18); CALCIUM LEVEL 8.3 MG/DL (8.8-10.2); CARBON DIOXIDE LEVEL 18 MEQ/L (21-32); CHLORIDE LEVEL 101 MEQ/L (98-107); CK-MB VALUE MASS 1.3 NG/ML (<3.6); CPK CREATINE PHOSPHOKINASE 66 U/L (39-308); CREATININE FOR GFR 1.49 MG/DL (0.70-1.30); GLOMERULAR FILTRATION RATE 50.2 (>49); GLUCOSE, FASTING 356 MG/DL (70-100); MAGNESIUM LEVEL 1.9 MG/DL (1.8-2.4); MB/CK RELATIVE INDEX 1.96 (< OR =4); POTASSIUM SERUM 5.1 MEQ/L (3.5-5.1); SODIUM LEVEL 137 MEQ/L (136-145); TROPONIN I 0.02 NG/ML (< 0.10)
[2018-05-21] MEDS: ALBUTEROL SULFATE 2.5 MG/0.5 ML INH NEB SOLN INH (15:02)
[2018-05-21] MEDS: methylPREDNISolone INJ 125 MG/2 ML VIAL (J2930) IV (16:00)
[2018-05-21 16:50] LABS: ABG BASE EXCESS -1.8 (-2.0-2.0); ABG O2 SATURATION 96.7 % (95.0-99.0); ABG PARTIAL PRESSURE CO2 29.4 mmHg (35.0-45.0); ABG PARTIAL PRESSURE O2 85.6 mmHg (75.0-100.0); ABG STANDARD HCO3 22.9 MEQ/L (22.0-26.0); ABG TOTAL CO2 21.9 MEQ/L (23.0-31.0); ABG pH (ARTERIAL) 7.472 UNITS (7.350-7.450)
[2018-05-21 16:51] LABS: ABG SITE NOT GIVEN
[2018-05-21 17:28] LABS: BEDSIDE GLUCOSE 346 MG/DL (80-115)
[2018-05-21 19:01] LABS: LACTIC ACID SEPSIS PROTOCOL 1.3 MMOL/L (0.4-2.0)
[2018-05-21 20:30] LABS: BEDSIDE GLUCOSE 275 MG/DL (80-115)
[2018-05-21] MEDS: ATORVASTATIN 20 MG TAB PO (21:11)
[2018-05-21 21:51] LABS: ACETONE/KETONE 3.77 MG/DL (<2.81); CK-MB VALUE MASS 1.3 NG/ML (<3.6); CPK CREATINE PHOSPHOKINASE 53 U/L (39-308); MB/CK RELATIVE INDEX 2.45 (< OR =4); TROPONIN I 0.37 NG/ML (< 0.10)
[2018-05-21 23:54] LABS: BEDSIDE GLUCOSE 314 MG/DL (80-115)
[2018-05-22] MEDS: CEFTAROLINE FOSAMIL 600 MG in D5W MINI-BAG PLUS 50 ML IV ×2 (00:43→12:28)
[2018-05-22] MEDS: HumaLOG INSULIN (NovoLOG) PER UNIT SC ×5 (00:43→20:42)
[2018-05-22] MEDS: methylPREDNISolone INJ 125 MG/2 ML VIAL (J2930) IV ×2 (02:48→15:11)
[2018-05-22 05:10] LABS: BASO % 0.2 % (0.0-1.0); HEMATOCRIT 29.8 % (42.0-52.0); HEMOGLOBIN 10.2 g/dl (13.5-17.5); LYMPH # 0.4 10^3/uL (1.5-4.5); LYMPH % 8.7 % (24.0-44.0); MEAN CORPUSCULAR HEMOGLOBIN 29.1 pg (27.0-33.0); MEAN CORPUSCULAR HGB CONC 34.2 g/dl (32.0-36.5); MEAN CORPUSCULAR VOLUME 84.9 fl (80.0-96.0); MONO # 0.2 10^3/uL (0.0-0.8); MONO % 4.2 % (0.0-5.0); NEUTROPHILS # 4.3 10^3/uL (1.8-7.7); NEUTROPHILS % 85.9 % (36.0-66.0); PLATELET COUNT, AUTOMATED 140 10^3/uL (150-450); RED BLOOD COUNT 3.51 10^6/uL (4.30-6.10); RED CELL DISTRIBUTION WIDTH 15.1 % (11.5-14.5)
[2018-05-22 05:29] LABS: ALBUMIN/GLOBULIN RATIO 0.43 (1.00-1.93); ALKALINE PHOSPHATASE 75 U/L (45-117); ALT/SGPT 13 U/L (12-78); ANION GAP 10 MEQ/L (8-16); AST/SGOT 20 U/L (7-37); BILIRUBIN,TOTAL 0.5 MG/DL (0.2-1.0); BLOOD UREA NITROGEN 20 MG/DL (7-18); CALCIUM LEVEL 8.4 MG/DL (8.8-10.2); CARBON DIOXIDE LEVEL 25 MEQ/L (21-32); CHLORIDE LEVEL 105 MEQ/L (98-107); CK-MB VALUE MASS < 1.0 NG/ML (<3.6); CPK CREATINE PHOSPHOKINASE 40 U/L (39-308); CREATININE FOR GFR 1.08 MG/DL (0.70-1.30); GLOMERULAR FILTRATION RATE > 60.0 (>49); GLUCOSE, FASTING 234 MG/DL (70-100); POTASSIUM SERUM 4.1 MEQ/L (3.5-5.1); SODIUM LEVEL 140 MEQ/L (136-145); TOTAL PROTEIN 6.6 GM/DL (6.4-8.2); TROPONIN I 0.28 NG/ML (< 0.10)
[2018-05-22] MEDS: LEVOTHYROXINE 25MCG TABLET (0.025MG) PO (06:04)
[2018-05-22] MEDS: SLF 3 ML SYR IV ×3 (06:04→20:41)
[2018-05-22 06:10] LABS: BEDSIDE GLUCOSE 248 MG/DL (80-115)
[2018-05-22] MEDS: APIXABAN 5 MG TAB (ELIQUIS) PO ×2 (10:09→20:42)
[2018-05-22] MEDS: FAMOTIDINE 20 MG TAB PO ×2 (10:09→20:43)
[2018-05-22] MEDS: LACTOBACILLUS ACIDOPHILUS CAP (BACID) PO ×2 (10:09→20:42)
[2018-05-22 11:54] LABS: BEDSIDE GLUCOSE 228 MG/DL (80-115)
[2018-05-22] MEDS: LEVEMIR (INSULIN DETEMIR) 1 UNITS/0.01ML SC ×2 (12:29→20:42)
[2018-05-22 14:14] LABS: CPK CREATINE PHOSPHOKINASE 30 U/L (39-308); TROPONIN I 0.19 NG/ML (< 0.10)
[2018-05-22 14:15] LABS: CK-MB VALUE MASS 1.2 NG/ML (<3.6)
[2018-05-22 14:18] LABS: C-PEPTIDE 1.6 ng/mL (1.1-4.4)
[2018-05-22 16:19] LABS: BEDSIDE GLUCOSE 458 MG/DL (80-115)
[2018-05-22 20:41] LABS: BEDSIDE GLUCOSE 443 MG/DL (80-115)
[2018-05-22] MEDS: ATORVASTATIN 20 MG TAB PO (20:42)
[2018-05-23] MEDS: CEFTAROLINE FOSAMIL 600 MG in D5W MINI-BAG PLUS 50 ML IV ×2 (00:22→13:14)
[2018-05-23] MEDS: methylPREDNISolone INJ 125 MG/2 ML VIAL (J2930) IV (03:17)
[2018-05-23 04:46] LABS: BASO % 0.2 % (0.0-1.0); HEMOGLOBIN 9.3 g/dl (13.5-17.5); LYMPH # 0.4 10^3/uL (1.5-4.5); LYMPH % 6.9 % (24.0-44.0); MEAN CORPUSCULAR HEMOGLOBIN 28.7 pg (27.0-33.0); MEAN CORPUSCULAR HGB CONC 33.2 g/dl (32.0-36.5); MEAN CORPUSCULAR VOLUME 86.4 fl (80.0-96.0); MONO # 0.3 10^3/uL (0.0-0.8); MONO % 4.9 % (0.0-5.0); NEUTROPHILS # 5.2 10^3/uL (1.8-7.7); PLATELET COUNT, AUTOMATED 175 10^3/uL (150-450); RED BLOOD COUNT 3.24 10^6/uL (4.30-6.10); RED CELL DISTRIBUTION WIDTH 14.7 % (11.5-14.5)
[2018-05-23 05:03] LABS: ALBUMIN/GLOBULIN RATIO 0.48 (1.00-1.93); ALKALINE PHOSPHATASE 68 U/L (45-117); ALT/SGPT 15 U/L (12-78); ANION GAP 8 MEQ/L (8-16); AST/SGOT 16 U/L (7-37); BILIRUBIN,TOTAL 0.5 MG/DL (0.2-1.0); BLOOD UREA NITROGEN 27 MG/DL (7-18); CALCIUM LEVEL 8.2 MG/DL (8.8-10.2); CARBON DIOXIDE LEVEL 29 MEQ/L (21-32); CHLORIDE LEVEL 102 MEQ/L (98-107); CREATININE FOR GFR 1.08 MG/DL (0.70-1.30); GLOMERULAR FILTRATION RATE > 60.0 (>49); GLUCOSE, FASTING 264 MG/DL (70-100); POTASSIUM SERUM 4.2 MEQ/L (3.5-5.1); SODIUM LEVEL 139 MEQ/L (136-145); TOTAL PROTEIN 6.2 GM/DL (6.4-8.2)
[2018-05-23] MEDS: LEVOTHYROXINE 25MCG TABLET (0.025MG) PO (05:40)
[2018-05-23] MEDS: SLF 3 ML SYR IV ×3 (05:41→20:02)
[2018-05-23] MEDS: LEVEMIR (INSULIN DETEMIR) 1 UNITS/0.01ML SC ×3 (07:38→20:02)
[2018-05-23] MEDS: LACTOBACILLUS ACIDOPHILUS CAP (BACID) PO ×2 (07:38→20:00)
[2018-05-23] MEDS: HumaLOG INSULIN (NovoLOG) PER UNIT SC ×4 (07:38→20:01)
[2018-05-23] MEDS: FAMOTIDINE 20 MG TAB PO ×2 (07:39→20:00)
[2018-05-23] MEDS: APIXABAN 5 MG TAB (ELIQUIS) PO ×2 (07:39→20:00)
[2018-05-23 11:24] LABS: BEDSIDE GLUCOSE 300 MG/DL (80-115)
[2018-05-23] MEDS: ACETAMINOPHEN 500 MG TAB PO (12:44)
[2018-05-23] MEDS: methylPREDNISolone INJ 40 MG/1 ML VIAL (J2920) IV (14:47)
[2018-05-23 16:18] LABS: BEDSIDE GLUCOSE 416 MG/DL (80-115)
[2018-05-23 19:55] LABS: BEDSIDE GLUCOSE 382 MG/DL (80-115)
[2018-05-23] MEDS: ATORVASTATIN 20 MG TAB PO (20:00)
[2018-05-24] MEDS: CEFTAROLINE FOSAMIL 600 MG in D5W MINI-BAG PLUS 50 ML IV ×2 (03:20→12:09)
[2018-05-24] MEDS: methylPREDNISolone INJ 40 MG/1 ML VIAL (J2920) IV ×2 (03:21→14:53)
[2018-05-24] MEDS: LEVOTHYROXINE 25MCG TABLET (0.025MG) PO (06:20)
[2018-05-24] MEDS: SLF 3 ML SYR IV ×3 (06:23→20:37)
[2018-05-24 06:36] LABS: HEMATOCRIT 28.9 % (42.0-52.0); HEMOGLOBIN 9.7 g/dl (13.5-17.5); IMMATURE GRANULOCYTE % 0.6 % (0-3.0); LYMPH # 0.4 10^3/uL (1.5-4.5); LYMPH % 8.4 % (24.0-44.0); MEAN CORPUSCULAR HEMOGLOBIN 28.8 pg (27.0-33.0); MEAN CORPUSCULAR HGB CONC 33.6 g/dl (32.0-36.5); MEAN CORPUSCULAR VOLUME 85.8 fl (80.0-96.0); MONO # 0.2 10^3/uL (0.0-0.8); MONO % 4.7 % (0.0-5.0); NEUTROPHILS # 4.4 10^3/uL (1.8-7.7); NEUTROPHILS % 86.3 % (36.0-66.0); PLATELET COUNT, AUTOMATED 214 10^3/uL (150-450); RED BLOOD COUNT 3.37 10^6/uL (4.30-6.10); WHITE BLOOD COUNT 5.1 10^3/uL (4.0-10.0)
[2018-05-24 06:55] LABS: ALBUMIN 2.1 GM/DL (3.2-5.2); ALBUMIN/GLOBULIN RATIO 0.53 (1.00-1.93); ALKALINE PHOSPHATASE 67 U/L (45-117); ALT/SGPT 19 U/L (12-78); ANION GAP 5 MEQ/L (8-16); AST/SGOT 11 U/L (7-37); BILIRUBIN,TOTAL 0.4 MG/DL (0.2-1.0); BLOOD UREA NITROGEN 31 MG/DL (7-18); CARBON DIOXIDE LEVEL 29 MEQ/L (21-32); CHLORIDE LEVEL 104 MEQ/L (98-107); CREATININE FOR GFR 1.09 MG/DL (0.70-1.30); GLOMERULAR FILTRATION RATE > 60.0 (>49); GLUCOSE, FASTING 202 MG/DL (70-100); POTASSIUM SERUM 4.1 MEQ/L (3.5-5.1); SODIUM LEVEL 138 MEQ/L (136-145); TOTAL PROTEIN 6.1 GM/DL (6.4-8.2)
[2018-05-24] MEDS: HumaLOG INSULIN (NovoLOG) PER UNIT SC ×4 (08:06→20:36)
[2018-05-24] MEDS: FAMOTIDINE 20 MG TAB PO ×2 (08:07→20:37)
[2018-05-24] MEDS: APIXABAN 5 MG TAB (ELIQUIS) PO ×2 (08:07→20:37)
[2018-05-24] MEDS: LACTOBACILLUS ACIDOPHILUS CAP (BACID) PO ×2 (08:07→20:37)
[2018-05-24] MEDS: LEVEMIR (INSULIN DETEMIR) 1 UNITS/0.01ML SC ×2 (08:07→20:36)
[2018-05-24 11:30] LABS: BEDSIDE GLUCOSE 305 MG/DL (80-115)
[2018-05-24 16:36] LABS: BEDSIDE GLUCOSE 330 MG/DL (80-115)
[2018-05-24 20:27] LABS: BEDSIDE GLUCOSE 331 MG/DL (80-115)
[2018-05-24] MEDS: ATORVASTATIN 20 MG TAB PO (20:37)
[2018-05-25] MEDS: methylPREDNISolone INJ 40 MG/1 ML VIAL (J2920) IV ×2 (02:10→14:44)
[2018-05-25] MEDS: CEFTAROLINE FOSAMIL 600 MG in D5W MINI-BAG PLUS 50 ML IV ×2 (02:10→12:22)
[2018-05-25] MEDS: LEVOTHYROXINE 25MCG TABLET (0.025MG) PO (05:35)
[2018-05-25] MEDS: SLF 3 ML SYR IV ×3 (05:35→22:00)
[2018-05-25 06:55] LABS: BASO % 0.2 % (0.0-1.0); HEMATOCRIT 29.9 % (42.0-52.0); HEMOGLOBIN 9.9 g/dl (13.5-17.5); IMMATURE GRANULOCYTE % 1.3 % (0-3.0); LYMPH # 0.6 10^3/uL (1.5-4.5); LYMPH % 10.8 % (24.0-44.0); MEAN CORPUSCULAR HEMOGLOBIN 28.8 pg (27.0-33.0); MEAN CORPUSCULAR HGB CONC 33.1 g/dl (32.0-36.5); MEAN CORPUSCULAR VOLUME 86.9 fl (80.0-96.0); MONO # 0.3 10^3/uL (0.0-0.8); MONO % 5.6 % (0.0-5.0); NEUTROPHILS # 4.3 10^3/uL (1.8-7.7); NEUTROPHILS % 82.1 % (36.0-66.0); PLATELET COUNT, AUTOMATED 218 10^3/uL (150-450); RED BLOOD COUNT 3.44 10^6/uL (4.30-6.10); RED CELL DISTRIBUTION WIDTH 14.8 % (11.5-14.5); WHITE BLOOD COUNT 5.2 10^3/uL (4.0-10.0)
[2018-05-25 07:12] LABS: ALBUMIN 2.2 GM/DL (3.2-5.2); ALBUMIN/GLOBULIN RATIO 0.54 (1.00-1.93); ALKALINE PHOSPHATASE 68 U/L (45-117); ALT/SGPT 19 U/L (12-78); ANION GAP 6 MEQ/L (8-16); AST/SGOT 10 U/L (7-37); BILIRUBIN,TOTAL 0.3 MG/DL (0.2-1.0); BLOOD UREA NITROGEN 24 MG/DL (7-18); CALCIUM LEVEL 8.3 MG/DL (8.8-10.2); CARBON DIOXIDE LEVEL 30 MEQ/L (21-32); CHLORIDE LEVEL 104 MEQ/L (98-107); CREATININE FOR GFR 1.14 MG/DL (0.70-1.30); GLOMERULAR FILTRATION RATE > 60.0 (>49); GLUCOSE, FASTING 254 MG/DL (70-100); POTASSIUM SERUM 4.5 MEQ/L (3.5-5.1); SODIUM LEVEL 140 MEQ/L (136-145); TOTAL PROTEIN 6.3 GM/DL (6.4-8.2)
[2018-05-25 07:41] LABS: BEDSIDE GLUCOSE 260 MG/DL (80-115)
[2018-05-25] MEDS: LACTOBACILLUS ACIDOPHILUS CAP (BACID) PO ×2 (08:40→22:10)
[2018-05-25] MEDS: FAMOTIDINE 20 MG TAB PO ×2 (08:40→22:11)
[2018-05-25] MEDS: APIXABAN 5 MG TAB (ELIQUIS) PO ×2 (08:40→22:11)
[2018-05-25] MEDS: LEVEMIR (INSULIN DETEMIR) 1 UNITS/0.01ML SC ×2 (08:41→22:12)
[2018-05-25] MEDS: HumaLOG INSULIN (NovoLOG) PER UNIT SC ×4 (08:41→22:12)
[2018-05-25 11:33] LABS: BEDSIDE GLUCOSE 373 MG/DL (80-115)
[2018-05-25 11:41] LABS: BEDSIDE GLUCOSE > 600 MG/DL (80-115)
[2018-05-25 16:43] LABS: BEDSIDE GLUCOSE 295 MG/DL (80-115)
[2018-05-25 20:18] LABS: BEDSIDE GLUCOSE 329 MG/DL (80-115)
[2018-05-25] MEDS: predniSONE 20 MG TAB PO (22:11)
[2018-05-25] MEDS: ATORVASTATIN 20 MG TAB PO (22:11)
[2018-05-26] MEDS: CEFTAROLINE FOSAMIL 600 MG in D5W MINI-BAG PLUS 50 ML IV ×2 (00:22→12:45)
[2018-05-26] MEDS: SLF 3 ML SYR IV ×3 (05:33→22:00)
[2018-05-26] MEDS: LEVOTHYROXINE 25MCG TABLET (0.025MG) PO (05:33)
[2018-05-26 07:10] LABS: ALBUMIN 2.3 GM/DL (3.2-5.2); ALBUMIN/GLOBULIN RATIO 0.56 (1.00-1.93); ALKALINE PHOSPHATASE 68 U/L (45-117); ALT/SGPT 19 U/L (12-78); ANION GAP 7 MEQ/L (8-16); AST/SGOT 9 U/L (7-37); BILIRUBIN,TOTAL 0.4 MG/DL (0.2-1.0); BLOOD UREA NITROGEN 27 MG/DL (7-18); CALCIUM LEVEL 8.6 MG/DL (8.8-10.2); CARBON DIOXIDE LEVEL 30 MEQ/L (21-32); CHLORIDE LEVEL 101 MEQ/L (98-107); CREATININE FOR GFR 1.17 MG/DL (0.70-1.30); GLOMERULAR FILTRATION RATE > 60.0 (>49); GLUCOSE, FASTING 216 MG/DL (70-100); POTASSIUM SERUM 4.3 MEQ/L (3.5-5.1); SODIUM LEVEL 138 MEQ/L (136-145); TOTAL PROTEIN 6.4 GM/DL (6.4-8.2)
[2018-05-26] MEDS: LACTOBACILLUS ACIDOPHILUS CAP (BACID) PO ×2 (08:25→22:01)
[2018-05-26] MEDS: LEVEMIR (INSULIN DETEMIR) 1 UNITS/0.01ML SC ×2 (08:26→22:03)
[2018-05-26] MEDS: APIXABAN 5 MG TAB (ELIQUIS) PO ×2 (08:27→22:02)
[2018-05-26] MEDS: predniSONE 20 MG TAB PO ×2 (08:27→22:01)
[2018-05-26] MEDS: FAMOTIDINE 20 MG TAB PO ×2 (08:27→22:02)
[2018-05-26] MEDS: HumaLOG INSULIN (NovoLOG) PER UNIT SC ×4 (08:27→22:03)
[2018-05-26 12:00] LABS: BEDSIDE GLUCOSE 351 MG/DL (80-115)
[2018-05-26 16:38] LABS: BEDSIDE GLUCOSE 347 MG/DL (80-115)
[2018-05-26 20:42] LABS: BEDSIDE GLUCOSE 323 MG/DL (80-115)
[2018-05-26] MEDS: ATORVASTATIN 20 MG TAB PO (22:02)
[2018-05-27] MEDS: CEFTAROLINE FOSAMIL 600 MG in D5W MINI-BAG PLUS 50 ML IV ×2 (00:14→12:58)
[2018-05-27] MEDS: SLF 3 ML SYR IV ×3 (05:47→21:48)
[2018-05-27] MEDS: LEVOTHYROXINE 25MCG TABLET (0.025MG) PO (05:47)
[2018-05-27 07:27] LABS: ALBUMIN 2.4 GM/DL (3.2-5.2); ALBUMIN/GLOBULIN RATIO 0.62 (1.00-1.93); ALKALINE PHOSPHATASE 66 U/L (45-117); ALT/SGPT 17 U/L (12-78); ANION GAP 5 MEQ/L (8-16); AST/SGOT 6 U/L (7-37); BILIRUBIN,TOTAL 0.5 MG/DL (0.2-1.0); BLOOD UREA NITROGEN 34 MG/DL (7-18); CALCIUM LEVEL 8.7 MG/DL (8.8-10.2); CARBON DIOXIDE LEVEL 29 MEQ/L (21-32); CHLORIDE LEVEL 103 MEQ/L (98-107); CREATININE FOR GFR 1.25 MG/DL (0.70-1.30); GLOMERULAR FILTRATION RATE > 60.0 (>49); GLUCOSE, FASTING 220 MG/DL (70-100); POTASSIUM SERUM 4.7 MEQ/L (3.5-5.1); SODIUM LEVEL 137 MEQ/L (136-145); TOTAL PROTEIN 6.3 GM/DL (6.4-8.2)
[2018-05-27] MEDS: LEVEMIR (INSULIN DETEMIR) 1 UNITS/0.01ML SC ×2 (08:41→21:46)
[2018-05-27] MEDS: HumaLOG INSULIN (NovoLOG) PER UNIT SC ×4 (08:42→21:47)
[2018-05-27] MEDS: LACTOBACILLUS ACIDOPHILUS CAP (BACID) PO ×2 (08:42→21:47)
[2018-05-27] MEDS: predniSONE 20 MG TAB PO ×2 (08:42→21:47)
[2018-05-27] MEDS: APIXABAN 5 MG TAB (ELIQUIS) PO ×2 (08:42→21:47)
[2018-05-27] MEDS: FAMOTIDINE 20 MG TAB PO ×2 (08:42→21:48)
[2018-05-27 11:25] LABS: BEDSIDE GLUCOSE 295 MG/DL (80-115)
[2018-05-27 16:31] LABS: BEDSIDE GLUCOSE 512 MG/DL (80-115)
[2018-05-27 16:32] LABS: BEDSIDE GLUCOSE 503 MG/DL (80-115)
[2018-05-27 17:16] LABS: BEDSIDE GLUCOSE CONFIRMATION 497 MG/DL (LESS THAN 200)
[2018-05-27] MEDS: ATORVASTATIN 20 MG TAB PO (21:44)
[2018-05-27 22:01] LABS: BEDSIDE GLUCOSE 449 MG/DL (80-115)
[2018-05-28] MEDS: CEFTAROLINE FOSAMIL 600 MG in D5W MINI-BAG PLUS 50 ML IV (02:27)
[2018-05-28] MEDS: SLF 3 ML SYR IV ×2 (05:59→13:03)
[2018-05-28] MEDS: LEVOTHYROXINE 25MCG TABLET (0.025MG) PO (05:59)
[2018-05-28 07:08] LABS: ALBUMIN 2.5 GM/DL (3.2-5.2); ALBUMIN/GLOBULIN RATIO 0.68 (1.00-1.93); ALKALINE PHOSPHATASE 65 U/L (45-117); ALT/SGPT 16 U/L (12-78); ANION GAP 8 MEQ/L (8-16); AST/SGOT 5 U/L (7-37); BILIRUBIN,TOTAL 0.3 MG/DL (0.2-1.0); BLOOD UREA NITROGEN 35 MG/DL (7-18); CALCIUM LEVEL 8.7 MG/DL (8.8-10.2); CARBON DIOXIDE LEVEL 28 MEQ/L (21-32); CHLORIDE LEVEL 103 MEQ/L (98-107); CREATININE FOR GFR 1.23 MG/DL (0.70-1.30); GLOMERULAR FILTRATION RATE > 60.0 (>49); GLUCOSE, FASTING 242 MG/DL (70-100); POTASSIUM SERUM 4.6 MEQ/L (3.5-5.1); SODIUM LEVEL 139 MEQ/L (136-145); TOTAL PROTEIN 6.2 GM/DL (6.4-8.2)
[2018-05-28] MEDS: LACTOBACILLUS ACIDOPHILUS CAP (BACID) PO (09:29)
[2018-05-28] MEDS: HumaLOG INSULIN (NovoLOG) PER UNIT SC ×3 (09:29→17:09)
[2018-05-28] MEDS: LEVEMIR (INSULIN DETEMIR) 1 UNITS/0.01ML SC (09:29)
[2018-05-28] MEDS: APIXABAN 5 MG TAB (ELIQUIS) PO (09:29)
[2018-05-28] MEDS: FAMOTIDINE 20 MG TAB PO (09:30)
[2018-05-28] MEDS: predniSONE 20 MG TAB PO (09:30)
[2018-05-28 12:01] LABS: BEDSIDE GLUCOSE 277 MG/DL (80-115)
[2018-05-28 17:03] LABS: BEDSIDE GLUCOSE 245 MG/DL (80-115)
[2018-05-28] MEDS: AUGMENTIN 500 MG TAB PO (17:09)
== END 2018-05-28 18:37 | disposition home or self-care (01) | DRG 637 ==
LOC: M ICU 05-21 14:41 → M MSPAV 05-23 20:10 → M ED 08:51 → M ED INP 15:32 → M PCU 18:40
DX: E11.01 Type 2 diabetes mellitus with hyperosmolarity with coma (principal); A41.9 Sepsis, unspecified organism; J69.0 Pneumonitis due to inhalation of food and vomit; J96.01 Acute respiratory failure with hypoxia; D61.811 Other drug-induced pancytopenia; R65.20 Severe sepsis without septic shock; N17.9 Acute kidney failure, unspecified; E87.2 Acidosis; N18.3 Chronic kidney disease, stage 3 (moderate); E03.9 Hypothyroidism, unspecified; E78.5 Hyperlipidemia, unspecified; K21.9 Gastro-esophageal reflux disease without esophagitis; Z79.899 Other long term (current) drug therapy; Z79.82 Long term (current) use of aspirin; Z79.4 Long term (current) use of insulin; Z86.718 Personal history of other venous thrombosis and embolism; E11.51 Type 2 diabetes mellitus with diabetic peripheral angiopathy without gangrene; Z79.01 Long term (current) use of anticoagulants; D63.8 Anemia in other chronic diseases classified elsewhere

== ENCOUNTER 2018-06-05 20:12 | Inpatient (IN) | payer MEDICARE ==
[2018-06-05 20:27] LABS: BEDSIDE GLUCOSE 299 MG/DL (80-115)
[2018-06-05 20:31] LABS: ABG BASE EXCESS -14.1 (-2.0-2.0); ABG HCO3 11.9 MEQ/L (22.0-26.0); ABG PARTIAL PRESSURE CO2 28.8 mmHg (35.0-45.0); ABG PARTIAL PRESSURE O2 70.7 mmHg (75.0-100.0); ABG STANDARD HCO3 13.5 MEQ/L (22.0-26.0); ABG TOTAL CO2 12.8 MEQ/L (23.0-31.0)
[2018-06-05 20:34] LABS: ABG pH (ARTERIAL) 7.235 UNITS (7.350-7.450)
[2018-06-05 20:38] LABS: BASO # 0.1 10^3/uL (0.0-0.2); BASO % 0.7 % (0.0-1.0); EOS # 0.2 10^3/uL (0.0-0.50); EOS % 1.5 % (0.0-3.0); HEMATOCRIT 35.5 % (42.0-52.0); HEMOGLOBIN 10.8 g/dl (13.5-17.5); IMMATURE GRANULOCYTE % 1.8 % (0-3.0); LYMPH # 3.3 10^3/uL (1.5-4.5); MEAN CORPUSCULAR HEMOGLOBIN 29.2 pg (27.0-33.0); MEAN CORPUSCULAR HGB CONC 30.4 g/dl (32.0-36.5); MEAN CORPUSCULAR VOLUME 95.9 fl (80.0-96.0); MONO # 1.2 10^3/uL (0.0-0.8); MONO % 9.5 % (0.0-5.0); NEUTROPHILS # 7.3 10^3/uL (1.8-7.7); NEUTROPHILS % 59.5 % (36.0-66.0); PLATELET COUNT, AUTOMATED 246 10^3/uL (150-450); RED CELL DISTRIBUTION WIDTH 15.9 % (11.5-14.5); WHITE BLOOD COUNT 12.2 10^3/uL (4.0-10.0)
[2018-06-05] MEDS: IPRATROPIUM 0.5MG/ALBUTEROL 2.5MG INH SOL UD 3ML (DUONEB)(J7620) NEB ×3 (20:48→21:43)
[2018-06-05 21:00] LABS: ANION GAP 19 MEQ/L (8-16); BLOOD UREA NITROGEN 22 MG/DL (7-18); CALCIUM LEVEL 7.5 MG/DL (8.8-10.2); CARBON DIOXIDE LEVEL 15 MEQ/L (21-32); CHLORIDE LEVEL 102 MEQ/L (98-107); CPK CREATINE PHOSPHOKINASE 47 U/L (39-308); CREATININE FOR GFR 1.89 MG/DL (0.70-1.30); GLOMERULAR FILTRATION RATE 38.2 (>49); GLUCOSE, FASTING 313 MG/DL (70-100); MB/CK RELATIVE INDEX 2.55 (< OR =4); NT-PRO BNP 4882 PG/ML (<125); OSMOLALITY SERUM 300 MOSM/KG (280-301); POTASSIUM SERUM 4.9 MEQ/L (3.5-5.1); SODIUM LEVEL 136 MEQ/L (136-145); TROPONIN I < 0.02 NG/ML (< 0.10)
[2018-06-05 21:13] LABS: LACTIC ACID SEPSIS PROTOCOL 9.3 MMOL/L (0.4-2.0)
[2018-06-05] MEDS: NS 1,000 ML IV (21:45)
[2018-06-05] MEDS: NS 1,000 ML in APPROPRIATE DILUENT 1 EA IV (21:45)
[2018-06-05 22:01] LABS: ABG BASE EXCESS -2.6 (-2.0-2.0); ABG O2 SATURATION 96.3 % (95.0-99.0); ABG PARTIAL PRESSURE CO2 27.9 mmHg (35.0-45.0); ABG STANDARD HCO3 22.3 MEQ/L (22.0-26.0); ABG TOTAL CO2 20.9 MEQ/L (23.0-31.0); ABG pH (ARTERIAL) 7.474 UNITS (7.350-7.450)
[2018-06-05] MEDS: PIPERACILLIN/TAZOBACTAM SOD 3.375 GM in D5W MINI-BAG PLUS 50 ML IV (22:16)
[2018-06-05] MEDS: FUROSEMIDE 40 MG/4 ML VIAL (J1940) IV (23:40)
[2018-06-06] MEDS: VANCOMYCIN HCL 1,000 MG, VIAL MATE ADAPTER 1 EACH in D5W 250 ML IV (00:26)
[2018-06-06] MEDS: HYDROCORTISONE 100 MG/2 ML VIAL (J1720) IV ×2 (01:47→05:18)
[2018-06-06] MEDS: INSULIN HUMAN REGULAR 100 UNITS in NS 99 ML IV (02:26)
[2018-06-06] MEDS: INSULIN IV RATE CHANGE DOCUMENTATION ML/HR XX ×3 (02:30→06:03)
[2018-06-06] MEDS: PIPERACILLIN/TAZOBACTAM SOD 2.25 GM in D5W MINI-BAG PLUS 50 ML IV (03:14)
[2018-06-06 03:37] LABS: BEDSIDE GLUCOSE 171 MG/DL (80-115)
[2018-06-06 03:37] LABS: BEDSIDE GLUCOSE 152 MG/DL (80-115)
[2018-06-06 05:25] LABS: HEMATOCRIT 27.5 % (42.0-52.0); HEMOGLOBIN 8.9 g/dl (13.5-17.5); MEAN CORPUSCULAR HEMOGLOBIN 29.5 pg (27.0-33.0); MEAN CORPUSCULAR HGB CONC 32.4 g/dl (32.0-36.5); MEAN CORPUSCULAR VOLUME 91.1 fl (80.0-96.0); PLATELET COUNT, AUTOMATED 149 10^3/uL (150-450); RED BLOOD COUNT 3.02 10^6/uL (4.30-6.10); RED CELL DISTRIBUTION WIDTH 15.8 % (11.5-14.5); WHITE BLOOD COUNT 5.7 10^3/uL (4.0-10.0)
[2018-06-06 05:52] LABS: ALBUMIN 2.1 GM/DL (3.2-5.2); ANION GAP 6 MEQ/L (8-16); BLOOD UREA NITROGEN 24 MG/DL (7-18); CALCIUM LEVEL 6.9 MG/DL (8.8-10.2); CARBON DIOXIDE LEVEL 22 MEQ/L (21-32); CHLORIDE LEVEL 112 MEQ/L (98-107); CK-MB VALUE MASS < 1.0 NG/ML (<3.6); CPK CREATINE PHOSPHOKINASE 40 U/L (39-308); CREATININE FOR GFR 1.34 MG/DL (0.70-1.30); GLOMERULAR FILTRATION RATE 56.8 (>49); GLUCOSE, FASTING 96 MG/DL (70-100); POTASSIUM SERUM 3.8 MEQ/L (3.5-5.1); SODIUM LEVEL 140 MEQ/L (136-145); TROPONIN I < 0.02 NG/ML (< 0.10)
[2018-06-06 06:17] LABS: ABG BASE EXCESS -3.2 (-2.0-2.0); ABG HCO3 20.8 MEQ/L (22.0-26.0); ABG O2 SATURATION 99.5 % (95.0-99.0); ABG PARTIAL PRESSURE CO2 33.4 mmHg (35.0-45.0); ABG PARTIAL PRESSURE O2 194.7 mmHg (75.0-100.0); ABG STANDARD HCO3 21.8 MEQ/L (22.0-26.0); ABG TOTAL CO2 21.9 MEQ/L (23.0-31.0); ABG pH (ARTERIAL) 7.413 UNITS (7.350-7.450)
[2018-06-06 06:27] LABS: BEDSIDE GLUCOSE 81 MG/DL (80-115)
[2018-06-06] MEDS: IPRATROPIUM 0.5MG/ALBUTEROL 2.5MG INH SOL UD 3ML (DUONEB)(J7620) NEB ×4 (07:19→20:41)
[2018-06-06] MEDS ORDERED: VANCOMYCIN HCL 1,000 MG, VIAL MATE ADAPTER 1 EACH in D5W 250 ML IV (09:00)
[2018-06-06] MEDS ORDERED: PANTOPRAZOLE 40MG INJ (PROTONIX) (C9113) IV (09:00)
[2018-06-06] MEDS ORDERED: GLUCOSE 4 GM CHEW TABLET PO (09:15)
[2018-06-06] MEDS ORDERED: GLUCAGON FOR INJ 1 MG VIAL (J1610) SC (09:15)
[2018-06-06 09:35] LABS: BEDSIDE GLUCOSE 75 MG/DL (80-115)
[2018-06-06 09:35] LABS: BEDSIDE GLUCOSE 93 MG/DL (80-115)
[2018-06-06 09:37] LABS: BEDSIDE GLUCOSE 120 MG/DL (80-115)
[2018-06-06] MEDS: FUROSEMIDE 40 MG/4 ML VIAL (J1940) IV (09:39)
[2018-06-06] MEDS: ASPIRIN 325 MG TAB PO (09:40)
[2018-06-06] MEDS: APIXABAN 5 MG TAB (ELIQUIS) PO ×2 (09:42→21:16)
[2018-06-06] MEDS: LEVEMIR (INSULIN DETEMIR) 1 UNITS/0.01ML SC ×2 (09:42→21:16)
[2018-06-06] MEDS: CARVedilol 12.5 MG TAB PO ×2 (09:42→21:17)
[2018-06-06] MEDS: predniSONE 20 MG TAB PO (09:42)
[2018-06-06] MEDS: PANTOPRAZOLE 40MG TAB (PROTONIX) PO (09:42)
[2018-06-06] MEDS: HumaLOG INSULIN (NovoLOG) PER UNIT SC ×3 (13:04→21:17)
[2018-06-06 14:16] LABS: CPK CREATINE PHOSPHOKINASE 49 U/L (39-308); MB/CK RELATIVE INDEX 3.27 (< OR =4); TROPONIN I < 0.02 NG/ML (< 0.10)
[2018-06-06 16:47] LABS: BEDSIDE GLUCOSE 233 MG/DL (80-115)
[2018-06-06 21:07] LABS: BEDSIDE GLUCOSE 369 MG/DL (80-115)
[2018-06-06 22:14] LABS: CPK CREATINE PHOSPHOKINASE 39 U/L (39-308); MB/CK RELATIVE INDEX 4.87 (< OR =4); TROPONIN I < 0.02 NG/ML (< 0.10)
[2018-06-07] MEDS ORDERED: ACETAMINOPHEN TAB 650MG DOSE (2X325MG) PO (03:30)
[2018-06-07 05:07] LABS: HEMATOCRIT 26.7 % (42.0-52.0); HEMOGLOBIN 8.7 g/dl (13.5-17.5); MEAN CORPUSCULAR HEMOGLOBIN 29.2 pg (27.0-33.0); MEAN CORPUSCULAR HGB CONC 32.6 g/dl (32.0-36.5); MEAN CORPUSCULAR VOLUME 89.6 fl (80.0-96.0); PLATELET COUNT, AUTOMATED 162 10^3/uL (150-450); RED BLOOD COUNT 2.98 10^6/uL (4.30-6.10); RED CELL DISTRIBUTION WIDTH 15.5 % (11.5-14.5)
[2018-06-07 05:49] LABS: ANION GAP 9 MEQ/L (8-16); BLOOD UREA NITROGEN 38 MG/DL (7-18); CALCIUM LEVEL 7.2 MG/DL (8.8-10.2); CARBON DIOXIDE LEVEL 22 MEQ/L (21-32); CHLORIDE LEVEL 111 MEQ/L (98-107); CREATININE FOR GFR 1.22 MG/DL (0.70-1.30); GLOMERULAR FILTRATION RATE > 60.0 (>49); GLUCOSE, FASTING 100 MG/DL (70-100); PHOSPHORUS LEVEL 2.8 MG/DL (2.5-4.9); POTASSIUM SERUM 3.6 MEQ/L (3.5-5.1); SODIUM LEVEL 142 MEQ/L (136-145)
[2018-06-07 05:54] LABS: ABG BASE EXCESS -2.6 (-2.0-2.0); ABG HCO3 20.7 MEQ/L (22.0-26.0); ABG PARTIAL PRESSURE CO2 30.6 mmHg (35.0-45.0); ABG PARTIAL PRESSURE O2 56.9 mmHg (75.0-100.0); ABG STANDARD HCO3 22.2 MEQ/L (22.0-26.0); ABG TOTAL CO2 21.7 MEQ/L (23.0-31.0); ABG pH (ARTERIAL) 7.449 UNITS (7.350-7.450)
[2018-06-07 05:55] LABS: ABG O2 SATURATION 91.3 % (95.0-99.0)
[2018-06-07] MEDS: LEVEMIR (INSULIN DETEMIR) 1 UNITS/0.01ML SC ×2 (07:51→20:35)
[2018-06-07] MEDS: CARVedilol 12.5 MG TAB PO ×2 (07:52→20:33)
[2018-06-07] MEDS: predniSONE 20 MG TAB PO (07:52)
[2018-06-07] MEDS: HumaLOG INSULIN (NovoLOG) PER UNIT SC ×4 (07:52→20:34)
[2018-06-07] MEDS: ASPIRIN 325 MG TAB PO (07:52)
[2018-06-07] MEDS: APIXABAN 5 MG TAB (ELIQUIS) PO ×2 (07:52→20:33)
[2018-06-07] MEDS: PANTOPRAZOLE 40MG TAB (PROTONIX) PO (07:52)
[2018-06-07] MEDS: IPRATROPIUM 0.5MG/ALBUTEROL 2.5MG INH SOL UD 3ML (DUONEB)(J7620) NEB ×4 (08:23→20:28)
[2018-06-07 11:34] LABS: BEDSIDE GLUCOSE 246 MG/DL (80-115)
[2018-06-07 11:56] LABS: BEDSIDE GLUCOSE 45 MG/DL (80-115)
[2018-06-07] MEDS: POTASSIUM CHLORIDE 10 MEQ SR TABLET PO ×2 (12:19→20:32)
[2018-06-07] MEDS: FUROSEMIDE 100 MG/10 ML VIAL (J1940) IV ×2 (12:19→17:26)
[2018-06-07 12:35] LABS: BEDSIDE GLUCOSE 89 MG/DL (80-115)
[2018-06-07 16:39] LABS: BEDSIDE GLUCOSE 184 MG/DL (80-115)
[2018-06-07 20:04] LABS: BEDSIDE GLUCOSE 252 MG/DL (80-115)
[2018-06-08] MEDS: FUROSEMIDE 100 MG/10 ML VIAL (J1940) IV ×4 (00:03→17:16)
[2018-06-08 04:53] LABS: HEMATOCRIT 33.8 % (42.0-52.0); MEAN CORPUSCULAR HEMOGLOBIN 28.6 pg (27.0-33.0); MEAN CORPUSCULAR HGB CONC 32.2 g/dl (32.0-36.5); MEAN CORPUSCULAR VOLUME 88.7 fl (80.0-96.0); RED BLOOD COUNT 3.81 10^6/uL (4.30-6.10); RED CELL DISTRIBUTION WIDTH 15.8 % (11.5-14.5)
[2018-06-08 05:01] LABS: HEMOGLOBIN 10.9 g/dl (13.5-17.5); PLATELET COUNT, AUTOMATED 272 10^3/uL (150-450)
[2018-06-08 05:37] LABS: ALBUMIN 2.5 GM/DL (3.2-5.2); ANION GAP 9 MEQ/L (8-16); BLOOD UREA NITROGEN 34 MG/DL (7-18); CALCIUM LEVEL 8.5 MG/DL (8.8-10.2); CARBON DIOXIDE LEVEL 25 MEQ/L (21-32); CHLORIDE LEVEL 109 MEQ/L (98-107); CREATININE FOR GFR 1.22 MG/DL (0.70-1.30); GLOMERULAR FILTRATION RATE > 60.0 (>49); GLUCOSE, FASTING 36 MG/DL (70-100); PHOSPHORUS LEVEL 2.1 MG/DL (2.5-4.9); POTASSIUM SERUM 3.6 MEQ/L (3.5-5.1); SODIUM LEVEL 143 MEQ/L (136-145)
[2018-06-08] MEDS: DEXTROSE 50% 50 ML SYRINGE IV ×2 (05:39→05:43)
[2018-06-08 05:41] LABS: ABG HCO3 25.5 MEQ/L (22.0-26.0); ABG O2 SATURATION 95.9 % (95.0-99.0); ABG PARTIAL PRESSURE CO2 36.1 mmHg (35.0-45.0); ABG PARTIAL PRESSURE O2 76.9 mmHg (75.0-100.0); ABG STANDARD HCO3 26.2 MEQ/L (22.0-26.0); ABG TOTAL CO2 26.6 MEQ/L (23.0-31.0); ABG pH (ARTERIAL) 7.467 UNITS (7.350-7.450)
[2018-06-08 05:43] LABS: BEDSIDE GLUCOSE 25 MG/DL (80-115)
[2018-06-08 05:49] LABS: BEDSIDE GLUCOSE 228 MG/DL (80-115)
[2018-06-08 06:30] LABS: BEDSIDE GLUCOSE 116 MG/DL (80-115)
[2018-06-08] MEDS: IPRATROPIUM 0.5MG/ALBUTEROL 2.5MG INH SOL UD 3ML (DUONEB)(J7620) NEB ×4 (07:02→19:30)
[2018-06-08] MEDS: HumaLOG INSULIN (NovoLOG) PER UNIT SC ×4 (07:30→21:03)
[2018-06-08 08:26] LABS: BEDSIDE GLUCOSE 149 MG/DL (80-115)
[2018-06-08] MEDS: ASPIRIN 325 MG TAB PO (09:35)
[2018-06-08] MEDS: predniSONE 10 MG TAB PO (09:36)
[2018-06-08] MEDS: APIXABAN 5 MG TAB (ELIQUIS) PO ×2 (09:36→21:03)
[2018-06-08] MEDS: CARVedilol 12.5 MG TAB PO ×2 (09:36→21:04)
[2018-06-08] MEDS: PANTOPRAZOLE 40MG TAB (PROTONIX) PO (09:37)
[2018-06-08] MEDS: POTASSIUM CHLORIDE 10 MEQ SR TABLET PO ×2 (09:37→21:03)
[2018-06-08] MEDS: LEVEMIR (INSULIN DETEMIR) 1 UNITS/0.01ML SC (09:49)
[2018-06-08 12:16] LABS: BEDSIDE GLUCOSE 167 MG/DL (80-115)
[2018-06-08 17:05] LABS: BEDSIDE GLUCOSE 242 MG/DL (80-115)
[2018-06-08 21:05] LABS: BEDSIDE GLUCOSE 307 MG/DL (80-115)
[2018-06-09] MEDS: FUROSEMIDE 100 MG/10 ML VIAL (J1940) IV ×2 (01:04→06:33)
[2018-06-09 04:26] LABS: HEMATOCRIT 31.9 % (42.0-52.0); HEMOGLOBIN 10.2 g/dl (13.5-17.5); MEAN CORPUSCULAR HEMOGLOBIN 28.7 pg (27.0-33.0); MEAN CORPUSCULAR VOLUME 89.9 fl (80.0-96.0); PLATELET COUNT, AUTOMATED 214 10^3/uL (150-450); RED BLOOD COUNT 3.55 10^6/uL (4.30-6.10); RED CELL DISTRIBUTION WIDTH 15.7 % (11.5-14.5); WHITE BLOOD COUNT 7.1 10^3/uL (4.0-10.0)
[2018-06-09 04:54] LABS: ALBUMIN 2.4 GM/DL (3.2-5.2); ANION GAP 8 MEQ/L (8-16); BLOOD UREA NITROGEN 42 MG/DL (7-18); CALCIUM LEVEL 8.8 MG/DL (8.8-10.2); CARBON DIOXIDE LEVEL 26 MEQ/L (21-32); CHLORIDE LEVEL 106 MEQ/L (98-107); CREATININE FOR GFR 1.31 MG/DL (0.70-1.30); GLOMERULAR FILTRATION RATE 58.3 (>49); GLUCOSE, FASTING 181 MG/DL (70-100); PHOSPHORUS LEVEL 3.7 MG/DL (2.5-4.9); POTASSIUM SERUM 4.5 MEQ/L (3.5-5.1); SODIUM LEVEL 140 MEQ/L (136-145)
[2018-06-09 05:57] LABS: ABG BASE EXCESS 3.4 (-2.0-2.0); ABG HCO3 26.6 MEQ/L (22.0-26.0); ABG O2 SATURATION 91.9 % (95.0-99.0); ABG PARTIAL PRESSURE CO2 35.1 mmHg (35.0-45.0); ABG PARTIAL PRESSURE O2 60.9 mmHg (75.0-100.0); ABG STANDARD HCO3 27.4 MEQ/L (22.0-26.0); ABG TOTAL CO2 27.7 MEQ/L (23.0-31.0); ABG pH (ARTERIAL) 7.497 UNITS (7.350-7.450)
[2018-06-09] MEDS: IPRATROPIUM 0.5MG/ALBUTEROL 2.5MG INH SOL UD 3ML (DUONEB)(J7620) NEB ×4 (07:14→19:39)
[2018-06-09] MEDS: ASPIRIN 325 MG TAB PO (08:25)
[2018-06-09] MEDS: PANTOPRAZOLE 40MG TAB (PROTONIX) PO (08:25)
[2018-06-09] MEDS: POTASSIUM CHLORIDE 10 MEQ SR TABLET PO (08:26)
[2018-06-09] MEDS: predniSONE 10 MG TAB PO (08:26)
[2018-06-09] MEDS: CARVedilol 12.5 MG TAB PO ×2 (08:27→21:25)
[2018-06-09] MEDS: APIXABAN 5 MG TAB (ELIQUIS) PO ×2 (08:27→21:25)
[2018-06-09] MEDS: LEVEMIR (INSULIN DETEMIR) 1 UNITS/0.01ML SC ×2 (08:28→12:41)
[2018-06-09] MEDS: HumaLOG INSULIN (NovoLOG) PER UNIT SC ×4 (08:29→21:00)
[2018-06-09 11:59] LABS: BEDSIDE GLUCOSE 394 MG/DL (80-115)
[2018-06-09 16:51] LABS: BEDSIDE GLUCOSE 209 MG/DL (80-115)
[2018-06-09] MEDS: FUROSEMIDE 40 MG/4 ML VIAL (J1940) IV (17:01)
[2018-06-09 21:25] LABS: BEDSIDE GLUCOSE 238 MG/DL (80-115)
[2018-06-10 04:39] LABS: HEMATOCRIT 32.3 % (42.0-52.0); HEMOGLOBIN 10.4 g/dl (13.5-17.5); MEAN CORPUSCULAR HEMOGLOBIN 28.7 pg (27.0-33.0); MEAN CORPUSCULAR HGB CONC 32.2 g/dl (32.0-36.5); MEAN CORPUSCULAR VOLUME 89.2 fl (80.0-96.0); PLATELET COUNT, AUTOMATED 227 10^3/uL (150-450); RED BLOOD COUNT 3.62 10^6/uL (4.30-6.10); RED CELL DISTRIBUTION WIDTH 15.7 % (11.5-14.5); WHITE BLOOD COUNT 6.8 10^3/uL (4.0-10.0)
[2018-06-10 05:23] LABS: ALBUMIN 2.4 GM/DL (3.2-5.2); ANION GAP 11 MEQ/L (8-16); BLOOD UREA NITROGEN 51 MG/DL (7-18); CALCIUM LEVEL 9.1 MG/DL (8.8-10.2); CARBON DIOXIDE LEVEL 28 MEQ/L (21-32); CHLORIDE LEVEL 100 MEQ/L (98-107); CREATININE FOR GFR 1.31 MG/DL (0.70-1.30); GLOMERULAR FILTRATION RATE 58.3 (>49); GLUCOSE, FASTING 71 MG/DL (70-100); PHOSPHORUS LEVEL 5.2 MG/DL (2.5-4.9); POTASSIUM SERUM 4.2 MEQ/L (3.5-5.1); SODIUM LEVEL 139 MEQ/L (136-145)
[2018-06-10] MEDS: HumaLOG INSULIN (NovoLOG) PER UNIT SC ×4 (07:10→20:14)
[2018-06-10] MEDS: IPRATROPIUM 0.5MG/ALBUTEROL 2.5MG INH SOL UD 3ML (DUONEB)(J7620) NEB ×4 (07:59→20:07)
[2018-06-10] MEDS: FUROSEMIDE 40 MG/4 ML VIAL (J1940) IV ×2 (09:07→17:25)
[2018-06-10] MEDS: CARVedilol 12.5 MG TAB PO ×2 (09:08→20:14)
[2018-06-10] MEDS: ASPIRIN 325 MG TAB PO (09:08)
[2018-06-10] MEDS: LEVEMIR (INSULIN DETEMIR) 1 UNITS/0.01ML SC (09:08)
[2018-06-10] MEDS: APIXABAN 5 MG TAB (ELIQUIS) PO ×2 (09:08→20:14)
[2018-06-10] MEDS: predniSONE 10 MG TAB PO (09:08)
[2018-06-10] MEDS: PANTOPRAZOLE 40MG TAB (PROTONIX) PO (09:08)
[2018-06-10 11:54] LABS: BEDSIDE GLUCOSE 297 MG/DL (80-115)
[2018-06-10 17:00] LABS: BEDSIDE GLUCOSE 140 MG/DL (80-115)
[2018-06-10 20:08] LABS: BEDSIDE GLUCOSE 302 MG/DL (80-115)
[2018-06-11 05:53] LABS: HEMATOCRIT 31.8 % (42.0-52.0); HEMOGLOBIN 10.4 g/dl (13.5-17.5); MEAN CORPUSCULAR HGB CONC 32.7 g/dl (32.0-36.5); MEAN CORPUSCULAR VOLUME 88.6 fl (80.0-96.0); PLATELET COUNT, AUTOMATED 229 10^3/uL (150-450); RED BLOOD COUNT 3.59 10^6/uL (4.30-6.10); RED CELL DISTRIBUTION WIDTH 15.4 % (11.5-14.5); WHITE BLOOD COUNT 6.9 10^3/uL (4.0-10.0)
[2018-06-11 06:38] LABS: ALBUMIN 2.5 GM/DL (3.2-5.2); ANION GAP 8 MEQ/L (8-16); BLOOD UREA NITROGEN 61 MG/DL (7-18); CALCIUM LEVEL 8.5 MG/DL (8.8-10.2); CARBON DIOXIDE LEVEL 30 MEQ/L (21-32); CHLORIDE LEVEL 98 MEQ/L (98-107); CREATININE FOR GFR 1.32 MG/DL (0.70-1.30); GLOMERULAR FILTRATION RATE 57.8 (>49); GLUCOSE, FASTING 145 MG/DL (70-100); PHOSPHORUS LEVEL 6.4 MG/DL (2.5-4.9); POTASSIUM SERUM 4.2 MEQ/L (3.5-5.1); SODIUM LEVEL 136 MEQ/L (136-145)
[2018-06-11] MEDS: IPRATROPIUM 0.5MG/ALBUTEROL 2.5MG INH SOL UD 3ML (DUONEB)(J7620) NEB ×4 (07:38→19:45)
[2018-06-11] MEDS: HumaLOG INSULIN (NovoLOG) PER UNIT SC ×4 (07:46→20:16)
[2018-06-11] MEDS: PANTOPRAZOLE 40MG TAB (PROTONIX) PO (07:46)
[2018-06-11] MEDS: ASPIRIN 325 MG TAB PO (07:46)
[2018-06-11] MEDS: predniSONE 10 MG TAB PO (07:46)
[2018-06-11] MEDS: APIXABAN 5 MG TAB (ELIQUIS) PO ×2 (07:46→20:15)
[2018-06-11] MEDS: CARVedilol 12.5 MG TAB PO ×2 (07:47→20:15)
[2018-06-11] MEDS: LEVEMIR (INSULIN DETEMIR) 1 UNITS/0.01ML SC (07:47)
[2018-06-11] MEDS: FUROSEMIDE 40 MG/4 ML VIAL (J1940) IV ×2 (07:47→17:11)
[2018-06-11 12:00] LABS: BEDSIDE GLUCOSE 216 MG/DL (80-115)
[2018-06-11 16:48] LABS: BEDSIDE GLUCOSE 142 MG/DL (80-115)
[2018-06-11 19:47] LABS: BEDSIDE GLUCOSE 276 MG/DL (80-115)
[2018-06-12 06:19] LABS: HEMATOCRIT 31.5 % (42.0-52.0); HEMOGLOBIN 10.3 g/dl (13.5-17.5); MEAN CORPUSCULAR HEMOGLOBIN 28.8 pg (27.0-33.0); MEAN CORPUSCULAR HGB CONC 32.7 g/dl (32.0-36.5); PLATELET COUNT, AUTOMATED 248 10^3/uL (150-450); RED BLOOD COUNT 3.58 10^6/uL (4.30-6.10); RED CELL DISTRIBUTION WIDTH 15.5 % (11.5-14.5); WHITE BLOOD COUNT 6.2 10^3/uL (4.0-10.0)
[2018-06-12 06:34] LABS: ALBUMIN 2.5 GM/DL (3.2-5.2); ANION GAP 9 MEQ/L (8-16); BLOOD UREA NITROGEN 65 MG/DL (7-18); CARBON DIOXIDE LEVEL 29 MEQ/L (21-32); CHLORIDE LEVEL 98 MEQ/L (98-107); GLUCOSE, FASTING 157 MG/DL (70-100); PHOSPHORUS LEVEL 5.5 MG/DL (2.5-4.9); POTASSIUM SERUM 3.9 MEQ/L (3.5-5.1); SODIUM LEVEL 136 MEQ/L (136-145)
[2018-06-12] MEDS: IPRATROPIUM 0.5MG/ALBUTEROL 2.5MG INH SOL UD 3ML (DUONEB)(J7620) NEB ×4 (07:14→20:00)
[2018-06-12] MEDS: ASPIRIN 325 MG TAB PO (09:36)
[2018-06-12] MEDS: APIXABAN 5 MG TAB (ELIQUIS) PO ×2 (09:36→20:14)
[2018-06-12] MEDS: HumaLOG INSULIN (NovoLOG) PER UNIT SC ×4 (09:36→20:15)
[2018-06-12] MEDS: FUROSEMIDE 40 MG/4 ML VIAL (J1940) IV (09:36)
[2018-06-12] MEDS: PANTOPRAZOLE 40MG TAB (PROTONIX) PO (09:36)
[2018-06-12] MEDS: predniSONE 10 MG TAB PO (09:36)
[2018-06-12] MEDS: CARVedilol 12.5 MG TAB PO ×2 (09:37→20:15)
[2018-06-12] MEDS: LEVEMIR (INSULIN DETEMIR) 1 UNITS/0.01ML SC (09:37)
[2018-06-12 11:41] LABS: BEDSIDE GLUCOSE 229 MG/DL (80-115)
[2018-06-12 16:28] LABS: BEDSIDE GLUCOSE 222 MG/DL (80-115)
[2018-06-12 19:48] LABS: BEDSIDE GLUCOSE 397 MG/DL (80-115)
[2018-06-13 06:10] LABS: BEDSIDE GLUCOSE 96 MG/DL (80-115)
[2018-06-13] MEDS: IPRATROPIUM 0.5MG/ALBUTEROL 2.5MG INH SOL UD 3ML (DUONEB)(J7620) NEB ×4 (07:24→21:39)
[2018-06-13] MEDS: HumaLOG INSULIN (NovoLOG) PER UNIT SC ×4 (07:30→20:24)
[2018-06-13] MEDS: predniSONE 10 MG TAB PO (09:01)
[2018-06-13] MEDS: ASPIRIN 325 MG TAB PO (09:01)
[2018-06-13] MEDS: PANTOPRAZOLE 40MG TAB (PROTONIX) PO (09:02)
[2018-06-13] MEDS: FUROSEMIDE 80 MG TAB PO (09:02)
[2018-06-13] MEDS: APIXABAN 5 MG TAB (ELIQUIS) PO ×2 (09:02→20:23)
[2018-06-13] MEDS: CARVedilol 12.5 MG TAB PO ×2 (09:04→20:24)
[2018-06-13] MEDS: LEVEMIR (INSULIN DETEMIR) 1 UNITS/0.01ML SC (09:05)
[2018-06-13 11:32] LABS: BEDSIDE GLUCOSE 177 MG/DL (80-115)
[2018-06-13 12:54] LABS: CARBON DIOXIDE LEVEL 30 MEQ/L (21-32); POTASSIUM SERUM 3.9 MEQ/L (3.5-5.1)
[2018-06-13 15:22] LABS: ANION GAP 8 MEQ/L (8-16); BLOOD UREA NITROGEN 56 MG/DL (7-18); CALCIUM LEVEL 8.7 MG/DL (8.8-10.2); CHLORIDE LEVEL 97 MEQ/L (98-107); CREATININE FOR GFR 1.38 MG/DL (0.70-1.30); GLOMERULAR FILTRATION RATE 54.9 (>49); GLUCOSE, FASTING 210 MG/DL (70-100); SODIUM LEVEL 135 MEQ/L (136-145)
[2018-06-13 17:00] LABS: BEDSIDE GLUCOSE 327 MG/DL (80-115)
[2018-06-13 20:33] LABS: BEDSIDE GLUCOSE 373 MG/DL (80-115)
[2018-06-14 06:26] LABS: ANION GAP 7 MEQ/L (8-16); BLOOD UREA NITROGEN 44 MG/DL (7-18); CARBON DIOXIDE LEVEL 31 MEQ/L (21-32); CHLORIDE LEVEL 100 MEQ/L (98-107); CREATININE FOR GFR 1.42 MG/DL (0.70-1.30); GLOMERULAR FILTRATION RATE 53.1 (>49); GLUCOSE, FASTING 190 MG/DL (70-100); POTASSIUM SERUM 3.8 MEQ/L (3.5-5.1); SODIUM LEVEL 138 MEQ/L (136-145)
[2018-06-14] MEDS: IPRATROPIUM 0.5MG/ALBUTEROL 2.5MG INH SOL UD 3ML (DUONEB)(J7620) NEB ×2 (07:06→11:11)
[2018-06-14] MEDS: PANTOPRAZOLE 40MG TAB (PROTONIX) PO (08:50)
[2018-06-14] MEDS: FUROSEMIDE 80 MG TAB PO (08:51)
[2018-06-14] MEDS: predniSONE 10 MG TAB PO (08:53)
[2018-06-14] MEDS: ASPIRIN 325 MG TAB PO (08:53)
[2018-06-14] MEDS: APIXABAN 5 MG TAB (ELIQUIS) PO (08:53)
[2018-06-14] MEDS: CARVedilol 12.5 MG TAB PO (08:53)
[2018-06-14] MEDS: HumaLOG INSULIN (NovoLOG) PER UNIT SC ×2 (08:54→12:19)
[2018-06-14] MEDS: LEVEMIR (INSULIN DETEMIR) 1 UNITS/0.01ML SC (08:54)
[2018-06-14 12:33] LABS: BEDSIDE GLUCOSE 326 MG/DL (80-115)
[2018-06-14] MEDS: NEOSPORIN TOP OINT 15GM TOP (13:40)
== END 2018-06-14 14:00 | disposition home or self-care (01) | DRG 291 ==
LOC: M ICU 06-06 01:55 → M ED 20:12 → M MSPAV 06-10 20:50 → M ED INP 23:02
DX: I13.0 Hypertensive heart and chronic kidney disease with heart failure and stage 1 through stage 4 chronic kidney disease, or unspecified chronic kidney disease (principal); J96.01 Acute respiratory failure with hypoxia; J81.0 Acute pulmonary edema; I50.33 Acute on chronic diastolic (congestive) heart failure; E87.2 Acidosis; N17.9 Acute kidney failure, unspecified; D72.829 Elevated white blood cell count, unspecified; E11.65 Type 2 diabetes mellitus with hyperglycemia; Z79.01 Long term (current) use of anticoagulants; Z86.718 Personal history of other venous thrombosis and embolism; Z79.82 Long term (current) use of aspirin; Z79.899 Other long term (current) drug therapy; Z79.52 Long term (current) use of systemic steroids; I25.10 Atherosclerotic heart disease of native coronary artery without angina pectoris; I25.2 Old myocardial infarction; E11.40 Type 2 diabetes mellitus with diabetic neuropathy, unspecified; I73.9 Peripheral vascular disease, unspecified; E03.9 Hypothyroidism, unspecified; N18.3 Chronic kidney disease, stage 3 (moderate); D63.1 Anemia in chronic kidney disease; Z86.73 Personal history of transient ischemic attack (TIA), and cerebral infarction without residual deficits; Z87.891 Personal history of nicotine dependence; Z79.4 Long term (current) use of insulin; E78.5 Hyperlipidemia, unspecified

== ENCOUNTER → 2018-06-18 | Outpatient (REF) | payer MEDICARE ==
[2018-06-18 14:28] LABS: RHEUMATOID FACTOR QUANT < 10.0 IU/ML (<15.0)
[2018-06-18 15:13] LABS: ERYTHROCYTE SEDIMENTATION RATE 50 mm/hr (0-20)
== END ==
LOC: M LAB REF 13:26
DX: J44.9 Chronic obstructive pulmonary disease, unspecified (principal)
CPT/HCPCS: 82164

== ENCOUNTER → 2018-06-28 | Outpatient (CLI) | payer MEDICARE | LOC: M SLEEP 19:29 | DX: G47.33 Obstructive sleep apnea (adult) (pediatric) (principal); J44.9 Chronic obstructive pulmonary disease, unspecified; R91.8 Other nonspecific abnormal finding of lung field | CPT/HCPCS: 95811 ==

== ENCOUNTER → 2018-06-28 | Outpatient (CLI) | payer MEDICARE ==
[2018-06-28 17:43] LABS: ALBUMIN 3.1 GM/DL (3.2-5.2); ALBUMIN/GLOBULIN RATIO 0.86 (1.00-1.93); ALKALINE PHOSPHATASE 97 U/L (45-117); ALT/SGPT 17 U/L (12-78); ANION GAP 12 MEQ/L (8-16); AST/SGOT 11 U/L (7-37); BILIRUBIN,TOTAL 0.9 MG/DL (0.2-1.0); BLOOD UREA NITROGEN 34 MG/DL (7-18); CALCIUM LEVEL 8.2 MG/DL (8.8-10.2); CARBON DIOXIDE LEVEL 26 MEQ/L (21-32); CHLORIDE LEVEL 100 MEQ/L (98-107); CREATININE FOR GFR 1.41 MG/DL (0.70-1.30); GLOMERULAR FILTRATION RATE 53.5 (>49); GLUCOSE, FASTING 246 MG/DL (70-100); NT-PRO BNP 498 PG/ML (<125); POTASSIUM SERUM 4.2 MEQ/L (3.5-5.1); SODIUM LEVEL 138 MEQ/L (136-145); TOTAL PROTEIN 6.7 GM/DL (6.4-8.2)
== END ==
LOC: M SMT 13:55
DX: J44.9 Chronic obstructive pulmonary disease, unspecified (principal); R91.8 Other nonspecific abnormal finding of lung field